=== PATIENT | female | born 1935 | race Caucasian/White ===

== ENCOUNTER 2017-08-25 11:48 | Observation (INO) | payer MEDICARE, OTHER ==
[~2017-08-25] VITALS: Ht 157.5 cm; Wt 61.7 kg
[~2017-08-25 11:48] MED LIST: ARICEPT5 MG PO; CYCLOBENZAPRINE10 MG PO; DEPAKOTE SPRIN125 MG; DIVALPROEX SOD125 MG; GABAPENTIN100 MG; GABAPENTIN300 MG PO; METOCLOPRAMIDE10 MG PO; MIRTAZAPINE15 MG PO; OMEPRAZOLE20 M1 PO; PAROXETINE HCL20 MG PO; SIMVASTATIN40 MG PO
[2017-08-25] MEDS ORDERED: GABAPENTIN100 MG PO (12:44)
[2017-08-25] MEDS ORDERED: RANITIDINE HCL150 MG PO (12:44)
[2017-08-25] MEDS ORDERED: CETIRIZINE HCL10 MG PO (12:44)
[2017-08-25] MEDS ORDERED: MIDODRINE HCL2.5 MG PO (12:44)
[2017-08-25] MEDS ORDERED: SIMVASTATIN40 MG PO (12:44)
[2017-08-25] MEDS ORDERED: GERITOL COMPLE1 EACH PO (12:44)
[2017-08-25] MEDS ORDERED: COLACE100 MG PO (12:44)
[2017-08-25] MEDS ORDERED: SODIUM CHLORIDE 0.9% 1000ML 1,000 ML IV STA (13:29)
[2017-08-25 13:47] LABS: BASOPHILS % 0.3 % (0.0-1.0); EOSINOPHILS % 0.3 % (0.0-6.0); HEMATOCRIT 35.5 % (34.2-44.1); HEMOGLOBIN 11.7 g/dL (12.0-16.0); LYMPHOCYTES % 9.5 % (18.0-39.1); MEAN CORPUSCULAR HEMOGLOBIN 34.2 pg (28-32); MEAN CORPUSCULAR VOLUME 103.8 fL (81-99); MONOCYTES # (AUTO) 0.7 (0.2-0.8); MONOCYTES % 6.8 % (4.4-11.3); NEUTROPHILS # (AUTO) 8.6 (2.1-6.9); NEUTROPHILS % 82.7 % (38.7-80.0); PLATELET COUNT 216 x10e3/uL (140-360); RED BLOOD COUNT 3.42 x10e6/uL (3.6-5.1); RED CELL DISTRIBUTION WIDTH 13.3 % (11.7-14.4)
[2017-08-25 14:05] LABS: ALANINE AMINOTRANSFERASE 20 IU/L (0-55); ALBUMIN 3.3 g/dL (3.5-5.0); ALBUMIN/GLOBULIN RATIO 0.8 (0.8-2.0); ALKALINE PHOSPHATASE 48 IU/L (40-150); BLOOD UREA NITROGEN 21 mg/dL (7-26); BUN/CREATININE RATIO 25 (6-25); CALCIUM 9.2 mg/dL (8.4-10.2); CARBON DIOXIDE 28 mmol/L (22-29); CHLORIDE 106 mmol/L (98-107); CREATINE KINASE 28 IU/L (29-168); CREATININE, SERUM 0.85 mg/dL (0.57-1.11); EST GLOMERULAR FILTRATION RATE > 60 ML/MIN (60-); GLUCOSE 108 mg/dL (74-118); SODIUM 141 mmol/L (136-145)
[2017-08-25 14:14] LABS: TROPONIN I 0.009 ng/mL (0-0.300)
--- NOTE | 2017-08-25 14:29 | Diagnostic Imaging Report ---
Portable chest x-ray CPT code 69591 INDICATION: Weakness, confusion COMPARISON: 01/31/2017 FINDINGS: Frontal view of the chest obtained at 1351 hours. The cardiac silhouette is normal. Aortic ectasia is stable. The pulmonary vascular marking are normal. The lungs demonstrate diffuse hyperinflation. No mass or infiltrate. The costophrenic angles are sharp. There is no pneumothorax. The osseous structures are stable with degenerative changes of the spine. IMPRESSION: 1. Stable chest. 2. No active disease. Signed by: Dr. Alis Ramirez MD on 08/25/2017 2:25 PM
[2017-08-25 15:02] LABS: BILIRUBIN,URINE NEGATIVE (NEGATIVE); COLOR,URINE YELLOW (YELLOW); KETONES,URINE NEGATIVE (NEGATIVE); LEUKOCYTE ESTERASE ,URINE NEGATIVE (NEGATIVE); NITRITE,URINE NEGATIVE (NEGATIVE); PROTEIN,URINE DIPSTICK NEGATIVE (NEGATIVE); URINE UROBILINOGEN 0.2 mg/dL (0.2 - 1)
[2017-08-25 15:03] LABS: CLARITY,URINE CLEAR (CLEAR)
[2017-08-25 15:09] LABS: EPITHELIAL CELLS,URINE RARE /LPF; MUCUS,URINE FEW (RARE); RBC,URINE 0-5 /HPF (0-5); WBC,URINE (MAN) 0-5 /HPF (0-5)
[2017-08-25] MEDS ORDERED: CEFTRIAXONE SOD 1 GM VIAL IV ONE (16:45)
[2017-08-25] MEDS ORDERED: OSELTAMIVIR PHOSPHATE 75 MG CAP PO ONE (16:45)
[2017-08-25] MEDS ORDERED: SODIUM CHLORIDE 0.9% 1000ML 1,000 ML IV ONE (16:45)
[2017-08-25] MEDS: SODIUM CHLORIDE 0.9% 1000ML 1,000 ML IV SCH ×2 (17:30→19:06)
[2017-08-25] MEDS ORDERED: SODIUM CHLORIDE 0.9% 500ML 500 ML IV ONE (18:00)
[2017-08-25] MEDS ORDERED: ONDANSETRON HCL INJ 2 MG/ML VIAL IV PRN (19:15)
[2017-08-25] MEDS ORDERED: CEFTRIAXONE SOD 1 GM VIAL IV SCH (19:15)
[2017-08-25 21:15] VITALS: BP 99/55
[2017-08-25 21:20] VITALS: BP 99/55
[2017-08-25 21:51] LABS: CREATINE KINASE MB 0.4 ng/mL (0.00-5.00); TROPONIN I 0.01 ng/mL (0-0.300)
[2017-08-26] VITALS: BP 111/65
[2017-08-26] MEDS: SODIUM CHLORIDE 0.9% 1000ML 1,000 ML IV SCH ×4 (03:45→22:40)
[2017-08-26 04:00] VITALS: BP 113/97
[2017-08-26] MEDS: CEFTRIAXONE SOD 1 GM/NS 50 ML 50 ML IV SCH ×2 (06:05→16:27)
[2017-08-26 06:57] LABS: BASOPHILS % 0.4 % (0.0-1.0); EOSINOPHILS # (AUTO) 0.2 (0.0-0.4); EOSINOPHILS % 1.7 % (0.0-6.0); HEMATOCRIT 30.4 % (34.2-44.1); HEMOGLOBIN 9.8 g/dL (12.0-16.0); LYMPHOCYTES # (AUTO) 2.4 (1.0-3.2); LYMPHOCYTES % 25.1 % (18.0-39.1); MEAN CORPUSCULAR HEMOGLOBIN 33.4 pg (28-32); MEAN CORPUSCULAR HGB CONC 32.2 g/dL (31-35); MEAN CORPUSCULAR VOLUME 103.8 fL (81-99); MONOCYTES # (AUTO) 0.9 (0.2-0.8); MONOCYTES % 9.8 % (4.4-11.3); NEUTROPHILS # (AUTO) 5.9 (2.1-6.9); NEUTROPHILS % 62.7 % (38.7-80.0); PLATELET COUNT 177 x10e3/uL (140-360); RED BLOOD COUNT 2.93 x10e6/uL (3.6-5.1); RED CELL DISTRIBUTION WIDTH 13.3 % (11.7-14.4)
[2017-08-26 07:38] LABS: ANION GAP 10.8 mmol/L (8-16); BLOOD UREA NITROGEN 14 mg/dL (7-26); BUN/CREATININE RATIO 20 (6-25); CALCIUM 8.7 mg/dL (8.4-10.2); CARBON DIOXIDE 26 mmol/L (22-29); CHLORIDE 112 mmol/L (98-107); CREATINE KINASE 51 IU/L (29-168); CREATININE, SERUM 0.69 mg/dL (0.57-1.11); EST GLOMERULAR FILTRATION RATE > 60 ML/MIN (60-); GLUCOSE 93 mg/dL (74-118); POTASSIUM 3.8 mmol/L (3.5-5.1); SODIUM 145 mmol/L (136-145)
[2017-08-26 08:09] LABS: TROPONIN I 0.003 ng/mL (0-0.300)
[2017-08-26 08:37] VITALS: BP 115/57
[2017-08-26] MEDS ORDERED: OSELTAMIVIR PHOSPHATE 75 MG CAP PO SCH (09:00)
[2017-08-26 10:37] VITALS: BP 115/57
[2017-08-26 11:29] LABS: FREE THYROXINE INDEX 1.5263 (1.4-3.8); T3 UPTAKE 35.25 % (22.50-37.00); THYROID STIMULATING HORMONE 1.413 uIU/mL (0.350-4.940)
--- NOTE | 2017-08-26 12:33 | Diagnostic Imaging Report ---
PROCEDURE: X-RAY CHEST, TWO VIEWS COMPARISON: 08/25/2017. INDICATIONS: COUGH, CONGESTION FINDINGS: The lungs remain well inflated. No focal airspace consolidation or pneumothorax. Trace bilateral pleural effusions are evident on the lateral radiograph. Increased AP diameter of the chest with hemidiaphragmatic flattening is also unchanged. Stable cardiomediastinal contour. No pulmonary edema. No acute osseous abnormality. CONCLUSION: Trace bilateral pleural effusions. 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 Dictated by: Ac Sheth M.D. on 08/26/2017 at 12:42 Electronically approved by: Ac Sheth M.D. on 08/26/2017 at 12:42
[2017-08-26 12:44] LABS: FOLATE 30.3 ng/mL (7.0-15.4)
[2017-08-26] MEDS: DOCUSATE SODIUM 100 MG CAP PO SCH ×2 (12:53→22:40)
[2017-08-26] MEDS: GABAPENTIN 100 MG CAP PO SCH ×2 (12:53→22:40)
[2017-08-26] MEDS ORDERED: GUAIFENESIN/DEXTROMETHORPHAN LIQD 5 ML UDC NG PRN (14:30)
[2017-08-26] MEDS: ACETAMINOPHEN 325 MG TAB PO PRN (14:58)
[2017-08-26 17:02] VITALS: BP 117/67
[2017-08-26] MEDS: FAMOTIDINE 20 MG TAB PO SCH (17:54)
[2017-08-26 20:00] VITALS: BP 113/54
[2017-08-26] MEDS: IRON CARBONYL PO SCH (21:00)
[2017-08-26] MEDS: MV MIN PO SCH (21:00)
[2017-08-26] MEDS: [UNRECOGNIZED DRUG - OTHER] PO SCH (21:00)
[2017-08-26] MEDS: DONEPEZIL HCL 5 MG TAB PO SCH (22:40)
[2017-08-26] MEDS: DIVALPROEX SODIUM 125 MG TABDR...ER PO SCH (22:40)
[2017-08-26] MEDS: SIMVASTATIN 40 MG TAB PO SCH (22:40)
[2017-08-26] MEDS: MIRTAZAPINE 15 MG TAB PO SCH (22:40)
[2017-08-27] VITALS (7 sets, daily range): BP systolic 101–137; BP diastolic 54–72
[2017-08-27] MEDS: SODIUM CHLORIDE 0.9% 1000ML 1,000 ML IV SCH ×3 (03:01→19:01)
[2017-08-27] MEDS: CEFTRIAXONE SOD 1 GM/NS 50 ML 50 ML IV SCH (05:15)
[2017-08-27 07:56] LABS: BASOPHILS # (AUTO) 0.1 (0.0-0.1); BASOPHILS % 0.6 % (0.0-1.0); EOSINOPHILS # (AUTO) 0.1 (0.0-0.4); EOSINOPHILS % 1.5 % (0.0-6.0); HEMATOCRIT 30.7 % (34.2-44.1); HEMOGLOBIN 10.2 g/dL (12.0-16.0); LYMPHOCYTES # (AUTO) 1.7 (1.0-3.2); MEAN CORPUSCULAR HEMOGLOBIN 33.7 pg (28-32); MEAN CORPUSCULAR HGB CONC 33.2 g/dL (31-35); MEAN CORPUSCULAR VOLUME 101.3 fL (81-99); MONOCYTES # (AUTO) 0.9 (0.2-0.8); MONOCYTES % 9.8 % (4.4-11.3); NEUTROPHILS # (AUTO) 5.8 (2.1-6.9); NEUTROPHILS % 67.6 % (38.7-80.0); PLATELET COUNT 197 x10e3/uL (140-360); RED BLOOD COUNT 3.03 x10e6/uL (3.6-5.1); RED CELL DISTRIBUTION WIDTH 13.2 % (11.7-14.4)
[2017-08-27 08:06] LABS: ANION GAP 11.3 mmol/L (8-16); BLOOD UREA NITROGEN 9 mg/dL (7-26); BUN/CREATININE RATIO 13 (6-25); CALCIUM 8.2 mg/dL (8.4-10.2); CARBON DIOXIDE 24 mmol/L (22-29); CHLORIDE 111 mmol/L (98-107); CREATININE, SERUM 0.68 mg/dL (0.57-1.11); EST GLOMERULAR FILTRATION RATE > 60 ML/MIN (60-); GLUCOSE 98 mg/dL (74-118); POTASSIUM 3.3 mmol/L (3.5-5.1); SODIUM 143 mmol/L (136-145)
[2017-08-27] MEDS: MIDODRINE HCL 5 MG TABLET PO SCH (09:00)
[2017-08-27] MEDS: LORATADINE 10 MG TAB PO SCH (09:03)
[2017-08-27] MEDS: GABAPENTIN 100 MG CAP PO SCH ×2 (09:03→21:36)
[2017-08-27] MEDS: FAMOTIDINE 20 MG TAB PO SCH ×2 (09:03→16:33)
[2017-08-27] MEDS: ACETAMINOPHEN 325 MG TAB PO PRN (09:03)
--- NOTE | 2017-08-27 09:42 | Consultation ---
DATE OF CONSULTATION: August 27, 2017 UROLOGY CONSULTATION CHIEF UROLOGICAL COMPLAINT/REASON FOR CONSULTATION: Urinary retention. HISTORY OF PRESENT ILLNESS: Amie Nelson is an 82-year-old female admitted with confusion. Urologic consultation requested for retention. Per the nursing verbal note in the chart, greater than 800 mL. No dysuria. No gross hematuria. PAST MEDICAL HISTORY: Remarkable for coronary artery disease, status post recent catheterization, left ventricular dysfunction, hyperlipidemia, esophageal stricture, status post dilations, Alzheimer's dementia, hiatal hernia repair, cholecystectomy, hysterectomy degenerative joint disease. MEDICATIONS: Please see MAR. ALLERGIES: LIPITOR. SOCIAL HISTORY: No smoking or drinking. FAMILY HISTORY: No urological disease. REVIEW OF SYSTEMS: Noncontributory. for 12 organ systems. PHYSICAL EXAMINATION GENERAL: Elderly female in no acute distress. VITALS: Currently, she is afebrile. Stable vital signs. HEENT: Sclerae anicteric. NECK: Supple. BACK: Without costovertebral angle tenderness. ABDOMEN: Soft. It is nontender and nondistended. No palpable mass. No palpable hernias. No palpable lymphadenopathy. : Normal female external genitalia. Dan catheter draining clear yellow urine. EXTREMITIES: Without edema of upper or lower extremities. PSYCH: Alert and mood appropriate. SKIN: Intact. Normal color. PERTINENT LABORATORY DATA: Hemoglobin 11, hematocrit 35 and platelet count 216,000. White cell count 10,000. Sodium 145, potassium 3.8, chloride 112, bicarb 26, BUN 14, creatinine. 0.69, glucose 93. Urinalysis 0-5 reds and 0-5 whites. IMPRESSION 1. Urinary retention. 2. Question of neurogenic bladder. 3. Anemia. 4. Question of urinary tract infection. 5. Microscopic hematuria. PLAN 1. Will await a culture. 2. The patient would benefit from outpatient urodynamic studies. Would recommend continuation of the Dan catheter. Thank you for allowing me to participate in the care of your patient. Will be happy to follow along with you. Job#: [id number] RI cc: ANABEL AYALA MD MTDD
[2017-08-27] MEDS: DOCUSATE SODIUM 100 MG CAP PO SCH ×2 (12:10→22:10)
[2017-08-27] MEDS ORDERED: FUROSEMIDE INJ 10 MG/ML 4 ML VIAL IV ONE (13:15)
[2017-08-27] MEDS ORDERED: POTASSIUM CHLORIDE 10 MEQ TABCR PO ONE (13:15)
[2017-08-27] MEDS: CEFTRIAXONE SOD 1 GM VIAL IV SCH (16:33)
[2017-08-27] MEDS: MV MIN PO SCH (21:00)
[2017-08-27] MEDS: [UNRECOGNIZED DRUG - OTHER] PO SCH (21:00)
[2017-08-27] MEDS: IRON CARBONYL PO SCH (21:00)
[2017-08-27] MEDS: SIMVASTATIN 40 MG TAB PO SCH (21:36)
[2017-08-27] MEDS: MIRTAZAPINE 15 MG TAB PO SCH (21:36)
[2017-08-27] MEDS: DIVALPROEX SODIUM 125 MG TABDR...ER PO SCH (21:36)
[2017-08-27] MEDS: DONEPEZIL HCL 5 MG TAB PO SCH (21:36)
[2017-08-28] VITALS: BP 112/58
[2017-08-28] MEDS: SODIUM CHLORIDE 0.9% 1000ML 1,000 ML IV SCH ×2 (03:01→12:24)
[2017-08-28 04:00] VITALS: BP 148/72
[2017-08-28] MEDS: CEFTRIAXONE SOD 1 GM VIAL IV SCH ×2 (04:48→16:46)
[2017-08-28] MEDS: FAMOTIDINE 20 MG TAB PO SCH ×2 (07:30→16:46)
[2017-08-28 07:57] VITALS: BP 131/60
[2017-08-28] MEDS: GABAPENTIN 100 MG CAP PO SCH (09:00)
[2017-08-28] MEDS: MIDODRINE HCL 5 MG TABLET PO SCH (09:00)
[2017-08-28] MEDS: LORATADINE 10 MG TAB PO SCH (09:00)
[2017-08-28 11:36] LABS: ANION GAP 11.6 mmol/L (8-16); BLOOD UREA NITROGEN 9 mg/dL (7-26); BUN/CREATININE RATIO 12 (6-25); CALCIUM 8.3 mg/dL (8.4-10.2); CARBON DIOXIDE 28 mmol/L (22-29); CHLORIDE 105 mmol/L (98-107); CREATININE, SERUM 0.73 mg/dL (0.57-1.11); EST GLOMERULAR FILTRATION RATE > 60 ML/MIN (60-); GLUCOSE 166 mg/dL (74-118); SODIUM 142 mmol/L (136-145)
[2017-08-28 11:40] LABS: POTASSIUM 2.6 mmol/L (3.5-5.1)
[2017-08-28 12:00] VITALS: BP 111/56
[2017-08-28] MEDS ORDERED: POTASSIUM CHLORIDE 20 MEQ TAB CR PO NR ×2 (12:00→14:30)
[2017-08-28] MEDS: DOCUSATE SODIUM 100 MG CAP PO SCH (12:24)
[2017-08-28 15:43] VITALS: BP 111/56
[2017-08-28 16:00] VITALS: BP 122/56
[2017-08-28] MEDS ORDERED: POTASSIUM CHLORIDE 20 MEQ TAB CR PO STA (16:47)
== END 2017-08-28 18:18 | disposition home or self-care (01) ==
LOC: ER 11:48 → ERHOLD 20:03 → MED/SURG 20:46
DX: B34.9 Viral infection, unspecified (principal); D53.9 Nutritional anemia, unspecified; G30.9 Alzheimer's disease, unspecified; F02.80 Dementia in other diseases classified elsewhere, unspecified severity, without behavioral disturbance, psychotic disturbance, mood disturbance, and anxiety; E87.6 Hypokalemia
CPT/HCPCS: 36415 ×4; 71010; 71020; 80048 ×3; 80053; 81001; 82550 ×2; 82553 ×2; 82607; 82746; 83540; 84132; 84436; 84443; 84466; 84479; 84484 ×2; 85025 ×3; 85045; 87086; 87400; 93005; 97116 ×3; 97162; 97530; 99284; G0378 ×4; J0696 ×3; J1940; J7030 ×2; J7040

== ENCOUNTER 2018-06-11 14:00 | Observation (INO) | payer MEDICARE, OTHER ==
[~2018-06-11] VITALS: Ht 162.6 cm; Wt 61.8 kg
[~2018-06-11 14:00] MED LIST changes: +ARICEPT5 MG PEG; -ARICEPT5 MG PO; +CETIRIZINE HCL10 MG PO; +COLACE100 MG PEG; -DEPAKOTE SPRIN125 MG; +DEPAKOTE SPRIN125 MG PEG; +GABAPENTIN100 MG PEG; +GERITOL COMPLE1 EACH PO; +MIDODRINE HCL2.5 MG PEG; +RANITIDINE HCL150 MG PEG
--- OUTSIDE RECORDS SUMMARY | 2018-06-11 14:04 | XMS REPORT ---
Author Author [facility] Address Unknown Phone Unavailable Care Team Providers Care Labor Relations Or Personnel Negotiator Name Role Phone GUY AYALA Unavailable Unavailable Problems This patient has no known problems. Allergies, Adverse Reactions, Alerts This patient has no known allergies or adverse reactions. Medications This patient has no known medications. Results Test Description Test Time Test Comments Text Results Atomic Results Result Comments CHEST 2 VIEWS [place] [address] Patient Name: TROY DUBON MR #: [id number] : 1935 Age/Sex: 82/F Req #: [id number] Adm Physician: GUY AYALA MD Ordered by: GUY AYALA MD Report #: [id number] Location: MED/SURG Room/Bed: [facility] Procedure: [id number] DX/CHEST 2 VIEWS Exam Date: 08/26/17 Exam Time: 1210 REPORT STATUS: Signed PROCEDURE: X-RAY CHEST, TWO VIEWS COMPARISON: 08/25/2017. INDICATIONS: COUGH, CONGESTION FINDINGS: The lungs remain well inflated. No focal airspace consolidation or pneumothorax. Trace bilateral pleural effusions are evident on the lateral radiograph. Increased AP diameter of the chest with hemidiaphragmatic flattening is also unchanged. Stable cardiomediastinal contour. No pulmonary edema. No acute osseous abnormality. CONCLUSION: Trace bilateral pleural effusions. 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 Dictated by: Jesus Ramirez M.D. on 08/26/2017 at 12:42 Electronically approved by: Jesus Ramirez M.D. on 08/26/2017 at 12:42 Dictated By: JESUS RAMIREZ MD 1242 Transcribed By: FRANKI on 08/26/17 1242 COPY TO: GUY AYALA MD CHEST SINGLE (PORTABLE) [place] [address] Patient Name: TROY DUBON MR #: [id number] : 1935 Age/Sex: 82/F Req #: [id number] Adm Physician: Ordered by: GEOVANI GARCIA MD Report #: [id number] Location: ER Room/Bed: Procedure: [id number] DX/CHEST SINGLE (PORTABLE) Exam Date: 08/25/17 Exam Time: 1330 REPORT STATUS: Signed Portable chest x-ray CPT code 61276 INDICATION: Weakness, confusion COMPARISON: 01/31/2017 FINDINGS: Frontal view of the chest obtained at 1351 hours. The cardiac silhouette is normal. Aortic ectasia is stable. The pulmonary vascular marking are normal. The lungs demonstrate diffuse hyperinflation. No mass or infiltrate. The costophrenic angles are sharp. There is no pneumothorax. The osseous structures are stable with degenerative changes of the spine. IMPRESSION: 1. Stable chest. 2. No active disease. Signed by: Dr. Emir Ramirez MD on 08/25/2017 2:25 PM Dictated By: EMIR RAMIREZ MD [id number] Transcribed By: MERCY on 08/25/17 4361 COPY TO: GEOVANI GARCIA MD
[2018-06-11 15:20] LABS: BASOPHILS # (AUTO) 0.1 (0.0-0.1); EOSINOPHILS # (AUTO) 0.2 (0.0-0.4); HEMATOCRIT 38.3 % (34.2-44.1); HEMOGLOBIN 12.5 g/dL (12.0-16.0); LYMPHOCYTES # (AUTO) 2.6 (1.0-3.2); LYMPHOCYTES % 35.4 % (18.0-39.1); MEAN CORPUSCULAR HEMOGLOBIN 33.2 pg (28-32); MEAN CORPUSCULAR HGB CONC 32.6 g/dL (31-35); MEAN CORPUSCULAR VOLUME 101.6 fL (81-99); MONOCYTES # (AUTO) 0.6 (0.2-0.8); MONOCYTES % 7.7 % (4.4-11.3); NEUTROPHILS # (AUTO) 3.8 (2.1-6.9); NEUTROPHILS % 52.8 % (38.7-80.0); PLATELET COUNT 312 x10e3/uL (140-360); RED BLOOD COUNT 3.77 x10e6/uL (3.6-5.1)
[2018-06-11 15:29] LABS: BILIRUBIN,URINE NEGATIVE (NEGATIVE); CLARITY,URINE SL CLOUDY (CLEAR); COLOR,URINE YELLOW (YELLOW); KETONES,URINE NEGATIVE (NEGATIVE); LEUKOCYTE ESTERASE ,URINE NEGATIVE (NEGATIVE); NITRITE,URINE NEGATIVE (NEGATIVE); PROTEIN,URINE DIPSTICK NEGATIVE (NEGATIVE); URINE UROBILINOGEN 0.2 mg/dL (0.2 - 1)
[2018-06-11 15:32] LABS: ALANINE AMINOTRANSFERASE 10 IU/L (0-55); ALBUMIN 3.2 g/dL (3.5-5.0); ALBUMIN/GLOBULIN RATIO 0.8 (0.8-2.0); ALKALINE PHOSPHATASE 67 IU/L (40-150); ANION GAP 13.1 mmol/L (8-16); BLOOD UREA NITROGEN 16 mg/dL (7-26); BUN/CREATININE RATIO 19 (6-25); CALCIUM 9.8 mg/dL (8.4-10.2); CARBON DIOXIDE 30 mmol/L (22-29); CHLORIDE 101 mmol/L (98-107); CREATININE, SERUM 0.84 mg/dL (0.57-1.11); EST GLOMERULAR FILTRATION RATE > 60 ML/MIN (60-); GLUCOSE 92 mg/dL (74-118); POTASSIUM 4.1 mmol/L (3.5-5.1); SODIUM 140 mmol/L (136-145)
[2018-06-11 15:41] LABS: BACTERIA,URINE FEW /HPF; EPITHELIAL CELLS,URINE FEW /LPF; MUCUS,URINE FEW (RARE); RBC,URINE 0-5 /HPF (0-5)
[2018-06-11 21:50] VITALS: BP 130/61
[2018-06-11] MEDS: GABAPENTIN 100 MG CAP PO SCH (22:55)
[2018-06-11 23:32] VITALS: BP 130/61
[2018-06-12] VITALS (9 sets, daily range): BP systolic 101–115; BP diastolic 52–60
[2018-06-12] MEDS: DOCUSATE SODIUM 100 MG CAP PO SCH ×2 (09:35→21:42)
[2018-06-12] MEDS: MIDODRINE 2.5 MG TAB PO SCH (09:35)
[2018-06-12] MEDS: GABAPENTIN 100 MG CAP PO SCH ×2 (09:36→21:52)
[2018-06-12] MEDS ORDERED: NON-FORMULARY MEDICATION (Ranitidine Hcl 150 MG) PO SCH (17:00)
--- NOTE | 2018-06-12 19:49 | History and Physical ---
HISTORY OF PRESENT ILLNESS: This is an 83-year-old female with past medical history positive for dementia, questionable history of neuropathy, came to the emergency room because the patient was found to have more confusion than usual. She was diagnosed with UTI, recent and discharge few days ago with 3 days of Cipro. REVIEW OF SYSTEMS: The patient is unable to give me any information due to her underlying dementia. ALLERGIES: SHE IS ALLERGIC TO CODEINE. SOCIAL HISTORY: She does not drink. She does not drink. PAST MEDICAL HISTORY: Mainly positive for dementia and questionable neuropathy. PHYSICAL EXAMINATION VITAL SIGNS: Blood pressure 101/54, temperature 86.5, heart rate 63 per minute, respiratory rate 18 per minute, oxygen saturation 96%. HEART: Showed regular rhythm. Normal S1, S2 sounds. LUNGS: Clear bilaterally. ABDOMEN: Soft. EXTREMITIES: Show no evidence of cyanosis, edema, or trauma. LABORATORY DATA: We have BMP. Sodium 140, potassium 4.1, chloride 101, CO2 of 30, BUN 16, creatinine 0.84, glucose 92. On the CBC: White blood count 7.25, hemoglobin 12.5, hematocrit 38.3, platelet count 320,000. AST 19, ALT 10, total bilirubin 0.3, alkaline phosphatase 67. Urinalysis showed microhematuria. FINAL IMPRESSION 1. Worsening confusion. 2. Microhematuria, rule out kidney stone, rule out urinary tract infection. 3. Dementia. 4. Hypercholesterolemia. 5. Questionable idiopathic neuropathy. PLAN OF TREATMENT: We are going to order urine culture, chest x-ray, and CT of the head. We are going to get an abdominal ultrasound because of the microhematuria and abdominal pain. We are going to get urology consult with Dr. Douglas because of microhematuria. Continue rest of the home medication which include Colace 100 mg twice a day, Aricept 5 mg at bedtime. We are going to put a hold on gabapentin. Continue midodrine 5 mg daily, Remeron 7.5 mg at bedtime, and simvastatin 40 mg daily. We are going to initiate the procedure workup and if the workup is negative for any significant medical condition, patient can be going home. the weekend. Job#: [id number] VAS
--- NOTE | 2018-06-12 20:36 | Diagnostic Imaging Report ---
EXAMINATION: CHEST SINGLE (PORTABLE) INDICATION: Confusion, concern for pneumonia. COMPARISON: Chest radiograph 08/26/2017 FINDINGS: AP view TUBES and LINES: None. LUNGS: Lungs are moderately inflated. There are bibasilar atelectasis. There is no evidence of pneumonia or pulmonary edema. PLEURA: No pleural effusion or pneumothorax. HEART AND MEDIASTINUM: The cardiomediastinal silhouette is unremarkable. BONES AND SOFT TISSUES: No acute osseous lesion. Soft tissues are unremarkable. UPPER ABDOMEN: No free air under the diaphragm. IMPRESSION: No acute thoracic abnormality. Signed by: DR. Albert Villanueva MD on 06/12/2018 8:33 PM
[2018-06-12] MEDS ORDERED: MULTIVITAMINS/MINERALS TAB PO SCH (21:00)
[2018-06-12] MEDS ORDERED: [UNRECOGNIZED DRUG - OTHER] PO SCH (21:00)
[2018-06-12] MEDS ORDERED: DIVALPROEX SODIUM 125 MG TABDR...ER PO SCH (21:00)
[2018-06-12] MEDS ORDERED: MIRTAZAPINE 15 MG TAB PO SCH (21:00)
[2018-06-12] MEDS ORDERED: DIVALPROEX SODIUM SCH (21:00)
[2018-06-12] MEDS ORDERED: DONEPEZIL HCL 5 MG TAB PO SCH (21:00)
[2018-06-12] MEDS ORDERED: MV MIN PO SCH (21:00)
[2018-06-12] MEDS ORDERED: SIMVASTATIN 40 MG TAB PO SCH (21:00)
[2018-06-12] MEDS ORDERED: IRON CARBONYL PO SCH (21:00)
--- NOTE | 2018-06-12 21:07 | Diagnostic Imaging Report ---
EXAM: CT Abdomen and Pelvis WITHOUT contrast INDICATION: Abdominal pain, microhematuria, renal stone COMPARISON: None. TECHNIQUE: Abdomen and pelvis were scanned utilizing a multidetector helical scanner from the lung base to the pubic symphysis without administration of IV contrast. Absence of intravenous contrast decreases sensitivity for detection of focal lesions and vascular pathology. Coronal and sagittal reformations were obtained. Stone protocol is performed. IV CONTRAST: None. ORAL CONTRAST: None RADIATION DOSE: Total DLP: 460.76 mGy*cm Estimated effective dose: (DLP x 0.015 x size factor) mSv COMPLICATIONS: None FINDINGS: LINES and TUBES: None. LOWER THORAX: Unremarkable HEPATOBILIARY: No focal hepatic lesions. No biliary ductal dilation. GALLBLADDER: There are cholecystectomy clips. SPLEEN: No splenomegaly. PANCREAS: No focal masses or ductal dilatation. ADRENALS: No adrenal nodules KIDNEYS/URETERS: No hydronephrosis. No cystic or solid mass lesions. No stones. GI TRACT: No abnormal distention, wall thickening, or evidence of bowel obstruction. There are diverticula within the colon without evidence of diverticulitis. Appendix is normal. PELVIC ORGANS/BLADDER: The uterus is absent. The left ovary is unremarkable. Right ovary is not visualized. LYMPH NODES: No lymphadenopathy. VESSELS: There is moderate atherosclerotic disease in the aorta and major arterial branches. PERITONEUM / RETROPERITONEUM: No free air or fluid. BONES: Unremarkable. SOFT TISSUES: Unremarkable. IMPRESSION: 1. No evidence of nephrolithiasis or hydronephrosis. 2. Diverticulosis without diverticulitis. Signed by: Dr. Quinn Preston M.D. on 06/12/2018 9:03 PM
[2018-06-12] MEDS: FAMOTIDINE 20 MG TAB PO SCH (21:42)
[2018-06-13 01:00] VITALS: BP 128/59
[2018-06-13 03:30] VITALS: BP 117/57
[2018-06-13 08:32] VITALS: BP 108/57
[2018-06-13] MEDS ORDERED: LORATADINE 10 MG TAB PO SCH (09:00)
[2018-06-13] MEDS ORDERED: NON-FORMULARY MEDICATION (Cetirizine Hcl 10 MG) PO SCH (09:00)
[2018-06-13] MEDS: DOCUSATE SODIUM 100 MG CAP PO SCH (09:27)
[2018-06-13] MEDS: MIDODRINE 2.5 MG TAB PO SCH (09:28)
[2018-06-13] MEDS: FAMOTIDINE 20 MG TAB PO SCH (09:28)
--- NOTE | 2018-06-13 09:47 | Consultation ---
DATE OF CONSULTATION: June 13, 2018 UROLOGY CONSULTATION REQUESTING PHYSICIAN: Dr. Cyr. CHIEF UROLOGIC COMPLAINT/REASON FOR CONSULTATION: Microscopic hematuria. HISTORY OF PRESENT ILLNESS: Ms. Amie Nelson is a very pleasant 83-year-old female patient, admitted to the hospital with urinary tract infection, urinary difficulties, and dementia with confusion. PAST MEDICAL HISTORY: Notable for multiple chronic urinary tract infections, microscopic hematuria. She has nocturia 4 to 8 times per night, positive incomplete emptying. Denied urine incontinence. Past medical history is notable for constipation, dementia, status post hysterectomy, and status post cholecystectomy. MEDICATIONS: Please see MAR. ALLERGIES: CODEINE. SOCIAL HISTORY: Denies smoking or drinking. Full-care patient. FAMILY HISTORY: No urologic stones or malignancies per granddaughter. REVIEW OF SYSTEMS: Attempted with patient, unable to obtain secondary to dementia. PHYSICAL EXAMINATION GENERAL: Elderly female, in no acute distress. VITAL SIGNS: Temperature 95.8, pulse 59, respirations 18, and blood pressure 117/57. HEENT: Sclerae anicteric. NECK: Supple. BACK: Without costovertebral angle tenderness bilaterally. ABDOMEN: Soft, nontender, and nondistended. No palpable masses. No palpable hernias. No palpable inguinal lymphadenopathy. : Normal female external genitalia. EXTREMITIES: Without edema. Normally moves all 4 extremities. PSYCH: Mood appropriate. SKIN: Intact. Normal color. PERTINENT LABORATORY DATA: CT scan revealing normal , diverticulosis. Sodium 140, potassium 4.1, chloride 101, bicarb 30, BUN 16, creatinine 0.8, and glucose 92. Hemoglobin 12, hematocrit 38, platelet count 312,000, and white blood cell count 7250. Urinalysis 0 to 5 reds. IMPRESSION 1. Microscopic hematuria. 2. Chronic urinary tract infections. 3. Urinary incomplete emptying. 4. Nocturia. 5. Constipation. PLAN: Urologically, patient currently is BHARGAVI for infection, may be safely discharged to home with outpatient elective cystoscopy by myself. Thank you for allowing us to participate in the care of your patient. We will be happy to follow along with you. Job#: [id number] GABI cc:DR. CYR
[2018-06-13] MEDS: GABAPENTIN 100 MG CAP PO SCH (11:05)
[2018-06-13 12:01] LABS: BASOPHILS # (AUTO) 0.1 (0.0-0.1); EOSINOPHILS # (AUTO) 0.2 (0.0-0.4); EOSINOPHILS % 2.8 % (0.0-6.0); HEMATOCRIT 37.3 % (34.2-44.1); HEMOGLOBIN 12.3 g/dL (12.0-16.0); LYMPHOCYTES # (AUTO) 2.2 (1.0-3.2); LYMPHOCYTES % 30.7 % (18.0-39.1); MONOCYTES # (AUTO) 0.7 (0.2-0.8); MONOCYTES % 9.1 % (4.4-11.3); NEUTROPHILS % 56.1 % (38.7-80.0); PLATELET COUNT 300 x10e3/uL (140-360); RED BLOOD COUNT 3.73 x10e6/uL (3.6-5.1)
[2018-06-13 12:11] VITALS: BP 109/57
[2018-06-13 12:21] LABS: ALANINE AMINOTRANSFERASE 9 IU/L (0-55); ALBUMIN/GLOBULIN RATIO 0.8 (0.8-2.0); ALKALINE PHOSPHATASE 63 IU/L (40-150); ANION GAP 15.1 mmol/L (8-16); BLOOD UREA NITROGEN 17 mg/dL (7-26); BUN/CREATININE RATIO 20 (6-25); CALCIUM 9.4 mg/dL (8.4-10.2); CARBON DIOXIDE 26 mmol/L (22-29); CHLORIDE 103 mmol/L (98-107); CREATININE, SERUM 0.84 mg/dL (0.57-1.11); EST GLOMERULAR FILTRATION RATE > 60 ML/MIN (60-); GLUCOSE 103 mg/dL (74-118); POTASSIUM 4.1 mmol/L (3.5-5.1); SODIUM 140 mmol/L (136-145)
--- NOTE | 2018-06-13 13:10 | Diagnostic Imaging Report ---
ADDENDUM #1 Dose modulation, iterative reconstruction, and/or weight based adjustment of the mA/kV was utilized to reduce the radiation dose to as low as reasonably achievable. Signed by: DR James Marie M.D. on 06/17/2018 10:30 AM ORIGINAL REPORT History:AMS, history of dementia Comparison studies:CT head 09/15/2016 Technique: Axial images were obtained from the skull base to the vertex. Coronal and sagittal images reconstructed from the axial data. Intravenous contrast: None Findings: Scalp/skull: No abnormalities. Extra-axial spaces: No masses. No fluid collections. Brain sulci: Mild to moderately prominent. Ventricles: Mild to moderate compensatory dilatation. No hydrocephalus. Parenchyma: Few hypodensities in the supratentorial white matter are small vessel ischemic changes. No masses, hemorrhage, acute or chronic cortical vascular insults. Sellar/suprasellar region: No abnormalities. Craniocervical junction: Patent foramen magnum. No Chiari one malformation. Incidental findings: Atherosclerotic calcifications in the carotid siphons and vertebral arteries . Impression: No acute abnormalities. Chronic findings: 1. Mild to moderate generalized volume loss, progressed from previous examination. 2. Mild supratentorial white matter small vessel ischemic changes. Signed by: DR James Marie M.D. on 06/13/2018 1:06 PM
[2018-06-13 16:24] VITALS: BP 109/57
[2018-06-13 16:43] VITALS: BP 108/55
--- NOTE | 2018-08-19 14:54 | Discharge Summary ---
This is an 83-year-old female with past medical history positive for severe advanced dementia, Parkinson disease, neuropathy. She came to the emergency room because she was found to be more confused than usual. She was diagnosed with UTI and recently discharged with ciprofloxacin. Dr. Douglas was consulted because of the microhematuria. He is going to see her as an outpatient. She was seen by Dr. Joe also of neurology who did not find any evidence of any seizure activity. The MRI showed no evidence of any new stroke. PHYSICAL EXAMINATION: The heart shows regular rhythm, normal S1 and S2 sounds. Lungs are clear bilaterally. Abdomen is soft. FINAL IMPRESSION 1. Worsening confusion. 2. Microhematuria. 3. Dementia. 4. Hypercholesterolemia. 5. Question of idiopathic neuropathy. The patient is going to go home and continue the current medication regimen. Another option would be long-term facility if the patient is willing to participate in that also. GABBY CYR MD Job#: [id number]
== END 2018-06-13 17:40 | disposition home or self-care (01) ==
LOC: ER 14:00 → ERHOLD 17:10 → IMCU 21:41
PROVIDERS: ADMIT Internal Medicine; ATTEND Internal Medicine
DX: N39.0 Urinary tract infection, site not specified (principal); R41.82 Altered mental status, unspecified; F03.90 Unspecified dementia, unspecified severity, without behavioral disturbance, psychotic disturbance, mood disturbance, and anxiety; Z88.5 Allergy status to narcotic agent; R31.29 Other microscopic hematuria; E78.00 Pure hypercholesterolemia, unspecified; R33.9 Retention of urine, unspecified; R35.1 Nocturia; K59.00 Constipation, unspecified
CPT/HCPCS: 36415 ×2; 70450; 71045; 74176; 80053 ×2; 81001; 85025 ×2; 93005; G0378 ×3; 99284

== ENCOUNTER 2018-07-07 13:21 | Inpatient (IN) | payer MEDICARE, OTHER ==
[~2018-07-07] VITALS: Ht 162.6 cm; Wt 75.0 kg
[2018-07-07] MEDS ORDERED: SODIUM CHLORIDE 0.9% 1000ML 1,000 ML IV ONE (14:00)
[2018-07-07 14:11] LABS: BASOPHILS % 0.3 % (0.0-1.0); EOSINOPHILS # (AUTO) 0.1 (0.0-0.4); EOSINOPHILS % 1.6 % (0.0-6.0); HEMATOCRIT 40.1 % (34.2-44.1); HEMOGLOBIN 12.8 g/dL (12.0-16.0); LYMPHOCYTES # (AUTO) 1.9 (1.0-3.2); LYMPHOCYTES % 21.7 % (18.0-39.1); MEAN CORPUSCULAR HGB CONC 31.9 g/dL (31-35); MEAN CORPUSCULAR VOLUME 103.4 fL (81-99); MONOCYTES # (AUTO) 0.8 (0.2-0.8); MONOCYTES % 9.1 % (4.4-11.3); NEUTROPHILS # (AUTO) 5.8 (2.1-6.9); NEUTROPHILS % 66.8 % (38.7-80.0); PLATELET COUNT 247 x10e3/uL (140-360); RED BLOOD COUNT 3.88 x10e6/uL (3.6-5.1); RED CELL DISTRIBUTION WIDTH 13.9 % (11.7-14.4)
[2018-07-07 14:29] LABS: ALANINE AMINOTRANSFERASE 22 IU/L (0-55); ALBUMIN 3.3 g/dL (3.5-5.0); ALBUMIN/GLOBULIN RATIO 0.8 (0.8-2.0); ALKALINE PHOSPHATASE 79 IU/L (40-150); ANION GAP 13.9 mmol/L (8-16); BLOOD UREA NITROGEN 22 mg/dL (7-26); BUN/CREATININE RATIO 24 (6-25); CALCIUM 8.2 mg/dL (8.4-10.2); CARBON DIOXIDE 24 mmol/L (22-29); CHLORIDE 100 mmol/L (98-107); EST GLOMERULAR FILTRATION RATE 60 ML/MIN (60-); GLUCOSE 119 mg/dL (74-118); MAGNESIUM 2.2 MG/DL (1.3-2.1); PHOSPHORUS 3.7 MG/DL (2.3-4.7); POTASSIUM 3.9 mmol/L (3.5-5.1); SODIUM 134 mmol/L (136-145)
[2018-07-07] MEDS ORDERED: ASPIR 8181 MG PEG (14:55)
--- NOTE | 2018-07-07 15:25 | Diagnostic Imaging Report ---
Examination: Single AP view of the chest. COMPARISON: Portable chest 06/12/2018 INDICATION: Syncope, nausea and vomiting IMPRESSION: 1. Lines and Tubes: None 2. Lungs are grossly clear. No consolidation or effusion. 3. Cardiomediastinal silhouette is normal. Pulmonary vasculature is normal. 4. No acute bony abnormalities. Signed by: Dr. Karlos Hurd M.D. on 07/07/2018 3:22 PM
--- NOTE | 2018-07-07 16:57 | Diagnostic Imaging Report ---
EXAMINATION: CT of the abdomen and pelvis with contrast. TECHNIQUE: Spiral CT images of the abdomen and pelvis were performed from the lung bases to the lesser trochanters after the intravenous administration of 100 cc of Isovue 370 and the oral administration of water. Coronal and sagittal reformatted images were obtained. COMPARISON: CT abdomen and pelvis without contrast 06/12/2018 CLINICAL HISTORY:UTI, seizure, syncope, diarrhea DISCUSSION: ABDOMEN/PELVIS: LOWER THORAX:Stable linear atelectatic changes in the left lower lobe (series 2, image 8). HEPATOBILIARY: No focal hepatic lesions. No intra or extrahepatic biliary ductal dilation. GALLBLADDER: Cholecystectomy clips. SPLEEN: No splenomegaly. PANCREAS: No focal masses or ductal dilatation. ADRENALS: No adrenal nodules. KIDNEYS/URETERS: No hydronephrosis, stones, or solid mass lesions. PELVIC ORGANS/BLADDER: Bladder is unremarkable. Uterus is absent. Interval decrease in size of 1.4 cm fluid density lesion in the left adnexa (series 2, image 65), which previously measured 2.4 cm PERITONEUM/RETROPERITONEUM: No free air or fluid. LYMPH NODES: No intra-abdominal, retroperitoneal, pelvic or inguinal lymphadenopathy. VESSELS: The celiac trunk,superior and inferior mesenteric and bilateral renal arteries are patent The portal, superior mesenteric and splenic veins are patent. GI TRACT: No bowel dilation or evidence of obstruction. No pericolonic inflammatory changes. Scattered diverticula in the ascending, transverse and descending colon, with more extensive diverticulosis of the sigmoid colon, without diverticulitis, stable BONES AND SOFT TISSUE: No aggressive lytic lesions. Multilevel degenerative disc changes in the lower thoracic and lumbosacral spine. No soft tissue abnormalities. IMPRESSION: 1. No acute abdominopelvic abnormalities. Signed by: Dr. Karlos Hurd M.D. on 07/07/2018 4:53 PM
[2018-07-07] MEDS ORDERED: SODIUM CHLORIDE 0.9% 1000ML 1,000 ML IV SCH (17:06)
[2018-07-07] MEDS ORDERED: IOPAMIDOL 370 MG/ML 200 ML INFUS..BTL INJ ONE (17:12)
[2018-07-07] MEDS ORDERED: SODIUM CHLORIDE 0.9% 50ML 50 ML ONE (17:12)
[2018-07-07] MEDS ORDERED: SODIUM CHLORIDE FLUSH 10 ML SYR INJ PRN (17:15)
--- NOTE | 2018-07-07 18:51 | History and Physical ---
HISTORY OF PRESENT ILLNESS: An 83-year-old female with past medical history positive mainly for Parkinson disease and dementia, and apparently the patient had a seizure episode with bladder incontinence. Patient was brought to the emergency room. REVIEW OF SYSTEMS: The patient is confused. She cannot give me any meaningful information. PAST MEDICAL HISTORY: Parkinson disease. History of hypertension. Dementia. ALLERGIES: REPORTED ON THE CHART. SHE IS ALLERGIC TO CODEINE. SOCIAL HISTORY: She does not smoke. She does not drink. PHYSICAL EXAMINATION: HEART: Shows regular rhythm. Normal S1 and S2 sounds. LUNGS: Clear bilaterally. ABDOMEN: Soft. EXTREMITIES: Show no evidence of cyanosis, edema or trauma. VITAL SIGNS: Blood pressure 105/53, temperature 97.5, heart rate is 72 per minute, respiratory rate is 18 per minute, oxygen saturation 95%. On the BMP: Sodium 134, potassium is 3.9, chloride 100, CO2 24, BUN 22, creatinine 0.90, glucose 119, calcium is 8.2, phosphorus 3.7, magnesium 2.2. Total bilirubin 0.2, AST , ALT 22, alkaline phosphatase 79. Troponin 0.001. Albumin 3.3. Globulin 3.9. On the CBC: White blood count 8.69, hemoglobin 12.8, hematocrit 40.1, platelet count 247,000. FINAL IMPRESSION: 1. Syncopal episode. 2. Seizure disorder. 3. Elevated liver function tests. 4. Parkinson disease. 5. Dementia. PLAN OF TREATMENT: We are going to order a CT of the head without contrast, a CT of the lumbar spine without contrast. We are going to order a UA, urine culture. Continue IV fluids. Neurology consult with Dr. Joe. Echocardiogram and carotid Doppler have been ordered. Normal saline at 120 mL an hour. Zofran 4 mg IV q.4 hours as needed. We are going to also order Tylenol. I am going to order 325 mg q.4 hours as needed for pain or fever. I am going to resume the home medications, which include aspirin 81 mg daily, Colace 100 mg twice a day, Aricept 5 mg daily, gabapentin 100 mg twice a day, midodrine 5 mg daily, Remeron 7.5 mg daily and simvastatin 40 mg daily. She was also taking Depakote 10 mg daily, Depakote 120 mg at bedtime, Depakote also 125 mg daily. Multivitamin. 150 mg twice a day. Job#: [id number] EV
[2018-07-07] MEDS: FAMOTIDINE 20 MG TAB PO SCH (19:44)
[2018-07-07] MEDS: DOCUSATE SODIUM 100 MG CAP PO SCH (19:47)
[2018-07-07] MEDS: GABAPENTIN 100 MG CAP PO SCH (19:47)
[2018-07-07 20:06] VITALS: BP 129/67
--- NOTE | 2018-07-07 20:21 | Diagnostic Imaging Report ---
History:Syncope, history of dementia Comparison studies:CT head 06/13/2018 and 09/15/2016 Technique: Axial images were obtained from the skull base to the vertex. Coronal and sagittal images reconstructed from the axial data. Intravenous contrast: None Dose modulation, iterative reconstruction, and/or weight based adjustment of the mA/kV was utilized to reduce the radiation dose to as low as reasonably achievable. Findings: Scalp/skull: No abnormalities. Extra-axial spaces: No masses. No fluid collections. Brain sulci: Mildly prominent. Ventricles: Mild compensatory dilatation. No hydrocephalus. Parenchyma: Few hypodensities in the supratentorial white matter are small vessel ischemic changes. No masses, hemorrhage, acute or chronic cortical vascular insults. Sellar/suprasellar region: No abnormalities. Craniocervical junction: Patent foramen magnum. No Chiari one malformation. Incidental findings: Atherosclerotic calcifications in the carotid siphons . Impression: No acute abnormalities. Chronic findings: 1. Mild generalized volume loss. 2. Mild supratentorial white matter small vessel ischemic changes. Signed by: DR James Marie M.D. on 07/07/2018 8:18 PM
--- NOTE | 2018-07-07 20:28 | Diagnostic Imaging Report ---
History: Syncope, fell on tail bone Comparison studies: None Technique: Axial images were obtained from T11 inferior endplate through the sacrum. Coronal and sagittal images reconstructed from the axial data. Intravenous contrast: None Dose modulation, iterative reconstruction, and/or weight based adjustment of the mA/kV was utilized to reduce the radiation dose to as low as reasonably achievable. Findings: Number of non-rib bearing vertebral bodies: 5 Alignment: Normal lordosis. No scoliosis. Soft tissues: No paraspinal abnormalities. Atherosclerotic calcifications of the abdominal aorta and branches Paraspinal muscles: Mild fatty infiltration secondary atrophy Vertebrae: No fractures, infection or neoplasm. Degenerative changes: L1-L2: Diffuse disc bulge with patent canal and mild left foraminal narrowing L2-L3: Diffuse disc bulge with patent canal and foramina L3-L4: Disc degeneration with decreased intervertebral space and vacuum disc phenomenon. Asymmetric left disc osteophyte complex results in no significant canal stenosis and mild left foraminal narrowing L4-L5: History space. Diffuse disc osteophyte complex and mild facet hypertrophy results in no significant canal stenosis and mild bilateral foraminal narrowing L5-S1: Patent canal and foramina Sacroiliac joints: No degenerative changes. IMPRESSION: 1. Mild disc degeneration more significant at L3-L4 with patent canal and mild multilevel foraminal narrowing as described above. 2. No acute lumbar spine abnormality Signed by: DR James Marie M.D. on 07/07/2018 8:25 PM
[2018-07-07 20:30] VITALS: BP 129/67
[2018-07-07] MEDS: GERITOL COMPLETE PO SCH (21:00)
[2018-07-07] MEDS ORDERED: MIRTAZAPINE 15 MG TAB PO SCH (21:00)
[2018-07-07] MEDS: DEXTROSE 5%/0.45% SOD CHL 1,000 ML IV SCH (21:20)
[2018-07-07 22:02] LABS: BILIRUBIN,URINE NEGATIVE (NEGATIVE); CLARITY,URINE CLEAR (CLEAR); COLOR,URINE YELLOW (YELLOW); KETONES,URINE NEGATIVE (NEGATIVE); LEUKOCYTE ESTERASE ,URINE NEGATIVE (NEGATIVE); NITRITE,URINE NEGATIVE (NEGATIVE); PROTEIN,URINE DIPSTICK NEGATIVE (NEGATIVE); URINE UROBILINOGEN 0.2 mg/dL (0.2 - 1)
[2018-07-07 22:12] LABS: BACTERIA,URINE RARE /HPF; EPITHELIAL CELLS,URINE RARE /LPF; RBC,URINE 0-5 /HPF (0-5); WBC,URINE (MAN) 0-5 /HPF (0-5)
[2018-07-07] MEDS: SIMVASTATIN 40 MG TAB PO SCH (23:23)
[2018-07-07] MEDS: DONEPEZIL HCL 5 MG TAB PO SCH (23:23)
[2018-07-07] MEDS: DIVALPROEX SODIUM 125 MG TABDR...ER PO SCH (23:23)
[2018-07-08] VITALS (8 sets, daily range): BP systolic 102–152; BP diastolic 51–60
[2018-07-08] MEDS: ACETAMINOPHEN 325 MG TAB PO PRN ×2 (01:35→15:15)
[2018-07-08 05:45] LABS: BASOPHILS % 0.2 % (0.0-1.0); HEMATOCRIT 33.4 % (34.2-44.1); LYMPHOCYTES % 15.7 % (18.0-39.1); MEAN CORPUSCULAR HEMOGLOBIN 32.7 pg (28-32); MEAN CORPUSCULAR HGB CONC 32.6 g/dL (31-35); MEAN CORPUSCULAR VOLUME 100.3 fL (81-99); MONOCYTES # (AUTO) 1.2 (0.2-0.8); MONOCYTES % 9.4 % (4.4-11.3); NEUTROPHILS # (AUTO) 9.4 (2.1-6.9); NEUTROPHILS % 74.4 % (38.7-80.0); PLATELET COUNT 240 x10e3/uL (140-360); RED BLOOD COUNT 3.33 x10e6/uL (3.6-5.1); RED CELL DISTRIBUTION WIDTH 13.6 % (11.7-14.4)
[2018-07-08 05:58] LABS: HEMOGLOBIN 10.9 g/dL (12.0-16.0)
[2018-07-08 06:09] LABS: ALANINE AMINOTRANSFERASE 19 IU/L (0-55); ALBUMIN 2.7 g/dL (3.5-5.0); ALBUMIN/GLOBULIN RATIO 0.9 (0.8-2.0); ALKALINE PHOSPHATASE 66 IU/L (40-150); ANION GAP 14.5 mmol/L (8-16); BLOOD UREA NITROGEN 17 mg/dL (7-26); BUN/CREATININE RATIO 22 (6-25); CALCIUM 7.6 mg/dL (8.4-10.2); CARBON DIOXIDE 23 mmol/L (22-29); CHLORIDE 102 mmol/L (98-107); CREATININE, SERUM 0.76 mg/dL (0.57-1.11); EST GLOMERULAR FILTRATION RATE > 60 ML/MIN (60-); GLUCOSE 129 mg/dL (74-118); POTASSIUM 3.5 mmol/L (3.5-5.1); SODIUM 136 mmol/L (136-145)
[2018-07-08] MEDS: FAMOTIDINE 20 MG TAB PO SCH (07:30)
[2018-07-08] MEDS: GABAPENTIN 100 MG CAP PO SCH ×2 (07:35→17:44)
[2018-07-08] MEDS: DOCUSATE SODIUM 100 MG CAP PO SCH ×2 (07:35→17:44)
[2018-07-08] MEDS: ASPIRIN 81 MG CHEW TAB PO SCH (09:00)
[2018-07-08] MEDS: LORATADINE 10 MG TAB PO SCH (09:00)
[2018-07-08] MEDS: MIDODRINE 2.5 MG TAB PO SCH (09:00)
[2018-07-08] MEDS: DEXTROSE 5%/0.45% SOD CHL 1,000 ML IV SCH (10:30)
[2018-07-08] MEDS ORDERED: LORAZEPAM INJ 2 MG/ML VIAL IV PRN (14:00)
--- NOTE | 2018-07-08 16:47 | Consultation ---
DATE OF CONSULTATION: July 08, 2018 NEUROLOGY CONSULTATION HISTORY OF PRESENT ILLNESS: Ms. Nelson is an 83-year-old woman with past medical history significant for hypotension, multiple prior urinary tract infections, and advanced dementia, reportedly of the Alzheimer's type, admitted to [facility] on July 07, 2018, with activity concerning for a seizure. At approximately 12:30 on the day of admission, the patient had walked into the bathroom and was sitting on the toilet when she experienced the abrupt onset of unresponsiveness with her eyes rolled back in her head and stiffening of her whole body. During this time, the patient vomited and simultaneously choked. Patient's caregiver does not report tongue biting or urinary incontinence. She does report bowel incontinence. This activity lasted for approximately 2 minutes. Afterwards, the patient was disoriented and tired. At present, approximately 24 hours following the event, the patient remains postictal. Ms. Nelson was brought to the Emergency Center at [facility] for further evaluation of the event described above. Upon arrival in the Emergency Center, the patient was afebrile with a blood pressure of 113/51 mmHg and a pulse of 76 beats per minute. Documentation of the patient's neurological examination in the emergency room is not available for review at present. A CT of the brain without contrast was performed while the patient was in the Emergency Center. The study did not demonstrate recent large territorial ischemia or hemorrhage. Ms. Nelson was admitted to [facility] as an inpatient for further evaluation and treatment. The patient's daughter, who is present at bedside and provides the history, reports prior syncopal events associated with urination. However, since the patient began taking midodrine for hypotension, the syncopal events have not occurred. There is no known personal history of febrile seizures or other seizures. The patient has a granddaughter who experienced a single febrile seizure at the age of 5 years. The patient's daughter does report a prior occurrence of head trauma. In 2013, the patient hit her head on the garage door, fell backwards and hit the back of her head on concrete. It is unknown whether there was loss of consciousness. The patient did require stitches and joana over the back of her head. There is no known history of meningitis or encephalitis. Ms. Nelson is on an anticonvulsant medication: Divalproex sodium 125 mg by mouth at bedtime daily. According to the patient's daughter, Ms. Nelson likely takes this medication for mood stabilization. REVIEW OF SYSTEMS: Unable to obtain as the patient is encephalopathic. PAST MEDICAL HISTORY: Hypotension, osteoarthritis, multiple urinary tract infections, gastroesophageal reflux disease, depression, prior history of migraines, advanced dementia probably of the Alzheimer's type diagnosed in August 2015. PAST SURGICAL HISTORY: Total hysterectomy, cholecystectomy, bilateral knee surgeries. PAST HOSPITALIZATIONS: Surgeries/procedures as listed, childbirth times 2, multiple Emergency Center visits for urinary tract infections. FAMILY HISTORY: The patient's paternal and maternal grandparents are . The medical histories of the paternal grandparents are unknown. The medical history of the maternal grandfather is unknown. The patient's maternal grandmother is from pancreatic cancer. Patient's father is from lung cancer. He had heart disease, and migraines as well. Ms. Nelson's mother is from natural causes. Ms. Nelson had 3 brothers. One brother is from liver cancer. The other 2 brothers are alive. One brother has heart disease. The medical history of the 2nd brother is unknown. Ms. Nelson has 2 children, both daughters, both of whom are living. Both daughters have gastroesophageal reflux disease. SOCIAL HISTORY: Ms. Nelson is . She is retired. The patient's daughter does not report current or remote tobacco or recreational drug use. Patient's daughter acknowledges occasional alcohol use. HOME MEDICATIONS 1. Aspirin 81 mg by mouth daily. 2. Cetirizine 10 mg by mouth daily. 3. Divalproex sodium 125 mg by mouth at bedtime daily. 4. Colace 100 mg by mouth twice daily. 5. Donepezil 5 mg by mouth at bedtime daily. 6. Gabapentin 100 mg by mouth twice daily. 7. Midodrine 5 mg by mouth daily. 8. Mirtazapine 7.5 mg by mouth at bedtime daily. 9. Multivitamin. 10. Ranitidine 150 mg by mouth twice daily. 11. Simvastatin 40 mg by mouth at bedtime daily. ALLERGIES: CODEINE, LEVOFLOXACIN, MACROBID. NO KNOWN FOOD ALLERGIES. NO KNOWN ALLERGIES TO LATEX. NO KNOWN ALLERGIES TO IODINE OR OTHER CONTRAST MATERIALS. PHYSICAL EXAMINATION VITAL SIGNS: Height 64 inches, weight 153 pounds. BMI 26.3 kg per meter squared. Blood pressure 111/57 mmHg. Pulse 75 beats per minute. Respiratory rate 16 breaths per minute. Oxygen saturation 92% on room air. GENERAL: The patient is drowsy, opens her eyes briefly to verbal stimulation. Patient does not appear distressed. HEENT: Normocephalic and atraumatic. Pupils are equal, round, and reactive to light. Moist mucous membranes. NECK: Supple. No appreciable thyromegaly. No appreciable carotid bruits. CARDIOVASCULAR: S1 and S2, regular rate and rhythm. No murmurs, rubs, or gallops. RESPIRATORY: Clear to auscultation bilaterally. No wheezes, rhonchi or rales. EXTREMITIES: The skin is warm and dry. No clubbing, cyanosis, or edema. The posterior tibial and dorsalis pedis pulses are 2+ and symmetric. SKIN: No rashes or lesions. NEUROLOGIC EXAMINATION MEMORY/ATTENTION: The patient is drowsy, opens her eyes briefly to verbal stimuli. Ms. Nelson is oriented to person only. CRANIAL NERVES: Cranial nerve I: Not tested. Cranial nerves II, III, IV, and : Pupils are equal and round, react briskly to light (from 4 mm to 2 mm). Extraocular movements are grossly intact. No nystagmus. Cranial nerve V: Sensation to light touch is grossly intact in the bilateral V1 through V3 distributions. Strength of the temporalis and masseter muscles is within normal limits. Cranial nerve VII: The face is symmetric as are all facial movements. Cranial nerve VIII: Hearing is grossly intact to voice bilaterally. Cranial nerves IX and X: The soft palate elevates equally and symmetrically. Cranial nerve XII: The tongue protrudes midline and moves symmetrically from side to side. STRENGTH: Bulk is normal. Ms. Nelson will not cooperate with a formal assessment of strength. There are normal functional movements of all extremities. Tone is increased in the right arm. DTRs: Deep tendon reflexes are 1+ and symmetric at the triceps, biceps, brachioradialis, and patellas. Deep tendon reflexes are absent and symmetric at the Achilles. Plantar responses are flexor bilaterally. SENSATION: Sensation is grossly intact to light touch in both arms and both legs. CEREBELLAR: Unable to assess as the patient is encephalopathic. GAIT: Unable to assess as the patient is encephalopathic. SPEECH: Spontaneous speech is limited without appreciable dysarthria or aphasia. INVOLUNTARY MOVEMENTS: None. PRONATOR DRIFT: As per motor exam. LABORATORY DATA: The most recent comprehensive metabolic panel is significant for a serum glucose of 129, calcium of 7.6, total protein of 5.7, and albumin of 2.7. An iron level is 67. B-natriuretic peptide is less than 10.0. Vitamin B12 level is 589. The CBC with differential and platelets reveals a white blood cell count of 12.58 with 74.4% neutrophils, 15.7% lymphocytes, 9.4% monocytes, 0.0% eosinophils, and 0.2% basophils. The hemoglobin and hematocrit are 10.9 and 33.4 respectively. The platelet count is 240. A urinalysis was significant for 1+ blood only. PRAVIN screen is pending. Hepatitis panel is pending. Blood cultures collected on July 07, 2018, show no growth after 24 hours. A urine culture collected on July 07, 2018, reveals no growth, holding. DIAGNOSTIC STUDIES ELECTROCARDIOGRAM, 07/07/2018: Normal sinus rhythm at 69 beats per minute. CHEST X-RAY, 07/07/2018: 1. Lines and tubes: None. 2. Lungs are grossly clear. No consolidation or effusion. 3. Cardiomediastinal silhouette is normal. Pulmonary vasculature is normal. 4. No acute bony abnormalities. CT OF THE ABDOMEN AND PELVIS, 07/07/2018: No acute abdominopelvic abnormalities. CT OF THE LUMBAR SPINE, 07/07/2018: 1. Mild disk degeneration, more significant at L3-L4, with patent canal and mild multilevel foraminal narrowing as described above. 2. No acute lumbar spine abnormality. CT OF THE BRAIN WITHOUT CONTRAST, 07/07/2018: On my review, there is no evidence of recent large territorial ischemia, hemorrhage, mass, or mass effect. There is diffuse cerebral atrophy, appropriate for age. There are findings compatible with mild to moderate chronic small vessel ischemic disease. ECHOCARDIOGRAM, 07/08/2018: Ejection fraction 65%. Trace mitral and tricuspid regurgitation. Trace to mild aortic insufficiency. BILATERAL CAROTID ARTERY ULTRASOUND WITH DOPPLER, 07/08/2018: There is no hemodynamically significant atherosclerosis in the bilateral carotid artery systems. There is antegrade flow in the bilateral vertebral arteries. ASSESSMENT AND PLAN: Ms. Nelson is an 83-year-old woman with past medical history significant for hypotension, multiple urinary tract infections (currently with a urinary tract infection per her daughter), and advanced dementia, probably of the Alzheimer type, admitted to [facility] on July 07, 2018, with a possible seizure. On neurological examination, the patient is encephalopathic. There is increased tone in the right arm. Otherwise, there are no focal findings on neurological examination. Patient's laboratory data and other diagnostic studies have been reviewed and are documented above. RECOMMENDATIONS: In my opinion, Ms. Nelson probably experienced a seizure on the afternoon of July 07, 2018. Recommendations for further evaluation are as follows: 1. An MRI of the brain without contrast will be ordered for further evaluation of structural anomalies which may give rise to seizure activity. 2. A routine EEG will be ordered to evaluate for abnormal electrical activity, which may give rise to seizure activity. 3. A valproic acid level will be drawn. According to the patient's daughter, Ms. Nelson often refuses to take her medications. There is some concern on the part of the daughter as well as her caregivers that the patient's refusal to take her medication resulted in the seizure. 4. Defer treatment of the remaining medical comorbidities to the primary and other physicians following the patient. Thank you for this consultation. I will continue to follow this patient while she remains in the hospital. Time spent: 70 minutes. Job#: [id number] KEATON HERNANDEZ
--- NOTE | 2018-07-08 18:31 | Progress Note ---
DATE: INTERNAL MEDICINE PROGRESS NOTE SUBJECTIVE: She has severe dementia. Refusing to eat at times. Apparently she took the medication for the nurse. Patient is going to go for an MRI and EEG tomorrow to find out about the seizures. PHYSICAL EXAMINATION HEART: Shows regular rhythm. Normal S1 and S2 sounds. LUNGS: Clear bilaterally. ABDOMEN: Soft. EXTREMITIES: Show no evidence of cyanosis, edema or trauma. VITAL SIGNS: Blood pressure 108/57. Temperature 97 degrees Fahrenheit. Heart rate 75 per minute. Respiratory rate is 20 per minute. Oxygen saturation 92%. On the BMP: Sodium 136, potassium 3.5, chloride 102, CO2 23, BUN 17, creatinine 0.76, glucose 129. On the CBC: White blood count 12.5, hemoglobin 10.9, hematocrit 33.4, platelet count 240,000. AST 34, ALT 19, total bilirubin 0.2, alkaline phosphatase of 66. We already did a CT of the head which showed no evidence of any stroke. She has small mild generalized volume loss, mild supratentorial white matter, small-vessel ischemic changes. CT of the abdomen came back negative. Chest x-ray came back negative. Lumbar spine CT showed no significant abnormalities except for some mild disk degeneration most significant L3 to L4 with patent canal and mild multilevel foraminal narrowing as described above. UA, urine culture, blood cultures all completely negative. Patient apparently refusing the medication at times. She had urinary retention today. A straight catheter has been done, and the nurse removed 800 mL of urine. I talked with the family about the possibility of a PEG tube as the patient refuses to eat and refuses to take medication. The family still does not want to do it. FINAL IMPRESSION 1. Syncope. 2. Seizure disorder. 3. Elevated liver function tests, which is resolved. 4. Parkinson disease. 5. Urinary retention. 6. Severe dementia. PLAN OF TREATMENT: We are going to start Provigil 100 mg twice a day because the patient is sleepy most of the time. We are going to check the TSH. Continue D5 half-normal saline at 75 mL an hour. Continue Tylenol 325 mg q.4 hours as needed for pain or fever. Aspirin 81 mg daily. Depakote 125 mg at bedtime. Colace 100 mg twice a day. Aricept 5 mg at bedtime. Pepcid 20 mg twice a day, which we are going to discontinue because the patient was started on Protonix 40 mg daily. Continue gabapentin 100 mg twice a day for neuropathy. Claritin 10 mg daily. Lorazepam 0.5 mg as needed for anxiety. Midodrine 5 mg daily for hypotension. Remeron 7.5 mg at bedtime, which we are going to stop because of the sleepiness that the patient is having. Continue with Zofran 4 mg IV q.4 hours as needed for nausea and vomiting. Continue simvastatin 40 mg daily. I discussed the case with the family at the bedside, nurse also. Time spent around 45 minutes. We are waiting for the MRI of the head and the EEG tomorrow. Job#: [id number] EV
[2018-07-08] MEDS: GERITOL COMPLETE PO SCH (21:00)
[2018-07-08] MEDS: DIVALPROEX SODIUM 125 MG TABDR...ER PO SCH (21:36)
[2018-07-08] MEDS: SIMVASTATIN 40 MG TAB PO SCH (21:36)
[2018-07-08] MEDS: DONEPEZIL HCL 5 MG TAB PO SCH (21:36)
[2018-07-09] VITALS (7 sets, daily range): BP systolic 96–136; BP diastolic 53–75
[2018-07-09] MEDS: DEXTROSE 5%/0.45% SOD CHL 1,000 ML IV SCH ×2 (03:36→12:54)
[2018-07-09] MEDS: GABAPENTIN 100 MG CAP PO SCH ×2 (06:50→18:15)
[2018-07-09] MEDS: DOCUSATE SODIUM 100 MG CAP PO SCH ×2 (06:50→18:15)
[2018-07-09] MEDS: PANTOPRAZOLE SOD 40 MG TABEC PO SCH (07:30)
[2018-07-09] MEDS: LORATADINE 10 MG TAB PO SCH (09:00)
[2018-07-09] MEDS: MODAFINIL 100 MG TAB PO SCH ×2 (09:00→18:15)
[2018-07-09] MEDS: ASPIRIN 81 MG CHEW TAB PO SCH (09:00)
[2018-07-09] MEDS: MIDODRINE 2.5 MG TAB PO SCH (09:00)
--- NOTE | 2018-07-09 12:11 | Diagnostic Imaging Report ---
Exam: Brain MRI without IV contrast History: Seizure, syncope Comparison studies: Multiple prior head CTs and brain MRIs which date to 08/24/2012, most recent head CT of 07/07/2018. Technique: Sagittal and axial T2 FS, axial DWI, axial T2*GRE, axial T1 FLAIR and axial coronal T2 FLAIR. Exam was performed at 1.5 Kaylene magnetic field strength. Intravenous contrast: None Findings: Scalp: Normal in signal. No masses. Bone marrow: Normal in signal intensity. Ventricles: Compensatory dilatation. No hydrocephalus. Extra axial spaces: No mass, no fluid collection. Parenchyma: There is generalized volume loss with a slight frontal-temporal predominance which has slightly progressed from the remote exams which date to 08/24/2012. Again identified are confluent age-related T2 FLAIR hyperintense signal changes in the periventricular white matter. There is mild volume loss along the hippocampi without associated signal changes to indicate mesial temporal sclerosis. The forniceal columns and mamillary bodies are grossly symmetric in size and signal intensity. There are no gross abnormalities of cortical development/cortical migration within the limits of this exam. Suprasellar region: No abnormalities. Craniocervical junction: Patent foramen magnum. No Chiari malformation. Vessels: Normal flow-voids in the arteries and sinuses. Paranasal sinuses: Mild T2 hyperintense inflammatory mucosal thickening in the paranasal sinuses with small left maxillary sinus retention cyst. Incidental findings: Mild T2 hyperintense inflammatory changes or effusion in the left mastoids. IMPRESSION: No acute abnormalities. No changes from the previous head CT of 07/07/2018. Chronic findings: 1. Age-related periventricular white matter changes. 2. Mild generalized volume loss with a frontotemporal predominance which has slowly progressed from remote exams which date to 2011. Signed by: Dr. Ac Dacosta M.D. on 07/09/2018 12:08 PM
[2018-07-09 12:16] LABS: BASOPHILS % 0.2 % (0.0-1.0); EOSINOPHILS # (AUTO) 0.1 (0.0-0.4); EOSINOPHILS % 0.9 % (0.0-6.0); HEMATOCRIT 29.8 % (34.2-44.1); HEMOGLOBIN 9.9 g/dL (12.0-16.0); LYMPHOCYTES # (AUTO) 1.6 (1.0-3.2); LYMPHOCYTES % 17.1 % (18.0-39.1); MEAN CORPUSCULAR HEMOGLOBIN 33.1 pg (28-32); MEAN CORPUSCULAR HGB CONC 33.2 g/dL (31-35); MEAN CORPUSCULAR VOLUME 99.7 fL (81-99); MONOCYTES # (AUTO) 0.9 (0.2-0.8); MONOCYTES % 9.1 % (4.4-11.3); NEUTROPHILS # (AUTO) 6.9 (2.1-6.9); NEUTROPHILS % 72.4 % (38.7-80.0); PLATELET COUNT 241 x10e3/uL (140-360); RED BLOOD COUNT 2.99 x10e6/uL (3.6-5.1); RED CELL DISTRIBUTION WIDTH 13.6 % (11.7-14.4)
--- NOTE | 2018-07-09 12:42 | Progress Note ---
DATE: July 09, 2018 INTERNAL MEDICINE PROGRESS NOTE SUBJECTIVE: The patient has been refusing to eat, refusing to take medications. The family has finally decided to go for the PEG tube placement. PHYSICAL EXAM: VITAL SIGNS: Blood pressure 108/53, temperature is 96.2, heart rate 73 per minute. Respiratory rate 20 per minute, oxygen is 99%. HEART: Regular rhythm. No murmur. No extra sounds. LUNGS: Clear bilaterally. ABDOMEN: Soft. No tenderness or distention. On the BMP sodium 136, potassium 3.5, chloride 102, CO2 23, BUN 17, creatinine 0.76. Glucose 129. On the CBC white blood count 12.5, hemoglobin 10.9, hematocrit 33.4, platelet count 240,000. AST 34, ALT 19, total bilirubin 0.2, alkaline phosphatase 66. FINAL IMPRESSION: 1. Seizure. 2. Poor appetite. 3. Dementia. 4. Hyperlipidemia. 5. Hypertension. 6. Hypokalemia. PLAN OF TREATMENT: Going to continue IV fluids at 75 mL an hour. Zofran 4 mg IV as needed for vomiting. Tylenol 325 mg q.4. as needed. Gabapentin 100 mg twice a day. Depakote 125 mg at bedtime. Aspirin 81 mg daily. Midodrine 5 mg daily. Colace 100 mg twice a day. Simvastatin 40 mg daily. Provigil 100 mg twice a day. Aricept 5 mg at bedtime. Claritin 10 mg daily. Protonix 40 mg daily. She is going to have an EGD as part of the workup for the seizures that she has. MRI of the brain report is in progress. Going to consult gastroenterology. Dr. King Agarwal for PEG tube placement. Family agreed with that and they understand the benefits and the risks. Job#: [id number]
[2018-07-09 13:34] LABS: INR 0.86; PROTHROMBIN TIME 12.5 seconds (11.9-14.5)
--- NOTE | 2018-07-09 14:19 | Electroencephalogram ---
DATE OF STUDY: July 09, 2018 HISTORY: This 83-year-old woman with a history of probable seizure is having an EEG for evaluation of epileptiform activity. The patient is taking the following medications that might affect the EEG: Depakote. TECHNIQUE: This is a routine, portable EEG, recorded digitally using the international 10/20 electrode placement system, and done in the inpatient setting with the patient awake and confused. The EEG is adequate for interpretation. DESCRIPTION: Well-organized, well-sustained 6-7 Hertz activity is best seen symmetrically in the posterior head regions. No focal or epileptiform activity is record. Sleep is not recorded. Photic stimulation procedures a driving response. Hyperventilation is not performed. INTERPRETATION: This electroencephalogram is abnormal with the patient awake and confused due to diffuse slowing of background electrocortical activity compatible with mild generalized encephalopathy. No epileptiform discharges are seen. Clinical correlation is recommended. Job#: [id number] JOSEPH HERNANDEZ
[2018-07-09] MEDS: SIMVASTATIN 40 MG TAB PO SCH (20:55)
[2018-07-09] MEDS: DIVALPROEX SODIUM 125 MG TABDR...ER PO SCH (20:55)
[2018-07-09] MEDS: DONEPEZIL HCL 5 MG TAB PO SCH (20:55)
[2018-07-09] MEDS: GERITOL COMPLETE PO SCH (21:00)
[2018-07-10] VITALS (9 sets, daily range): BP systolic 110–137; BP diastolic 55–65
[2018-07-10] MEDS: DEXTROSE 5%/0.45% SOD CHL 1,000 ML IV SCH ×2 (03:44→17:48)
[2018-07-10] MEDS: DOCUSATE SODIUM 100 MG CAP PO SCH ×2 (06:15→18:15)
[2018-07-10] MEDS: GABAPENTIN 100 MG CAP PO SCH ×2 (06:30→18:30)
[2018-07-10] MEDS: PANTOPRAZOLE SOD 40 MG TABEC PO SCH (07:30)
[2018-07-10] MEDS: MODAFINIL 100 MG TAB PO SCH ×2 (09:00→17:00)
[2018-07-10] MEDS: MIDODRINE 2.5 MG TAB PO SCH ×2 (09:00→09:07)
[2018-07-10] MEDS: LORATADINE 10 MG TAB PO SCH ×2 (09:00→09:06)
[2018-07-10] MEDS ORDERED: PROPOFOL IV EMULSION 10 MG/ML 20 ML VIAL ONE (14:49)
[2018-07-10] MEDS ORDERED: LIDOCAINE HCL 2% LOCAL INJ 5 ML SDV VIAL INJ ONE (14:49)
--- NOTE | 2018-07-10 15:57 | Progress Note ---
DATE: INTERNAL MEDICINE PROGRESS NOTE SUBJECTIVE: The patient was sleeping. She woke up and engaged in conversation, still confused because of her dementia. PHYSICAL EXAMINATION VITAL SIGNS: Blood pressure 112/56. Temperature 96.4. Heart rate 77 per minute. Respiratory rate 18 per minute. Oxygen saturation 96%. HEART: Regular rhythm. Normal S1 and S2 sounds. LUNGS: Clear bilaterally. ABDOMEN: Soft. LABS: On the BMP, sodium is 136, potassium 3.5, chloride 102, CO2 23, BUN 17, creatinine 0.76, glucose 129. On the CBC, white blood count 9.51; hemoglobin 9.9; hematocrit 29.8; platelet count 241,000. PT 12.5, INR 0.86. AST 24, ALT 19, total bilirubin 0.2 and alkaline phos 66. FINAL IMPRESSION 1. Questionable seizure episode. 2. Severe dementia. 3. Parkinson disease. 4. Depression. 5. Hypokalemia. 6. Polyneuropathy. 7. Hypercholesterolemia. 8. Decreased appetite. PLAN OF TREATMENT: We are going to continue with IV fluids at 75 mL an hour. She is going to go for a PEG tube due to the fact that she has erratic behavior for eating and refusing medication at times. Continue gabapentin 100 mg twice a day, Depakote 125 mg at bedtime. Continue aspirin 81 mg daily, midodrine 5 mg daily, Colace 100 mg twice a day, simvastatin 40 mg daily, Provigil 100 mg twice a day, Aricept 5 mg at bedtime, Claritin 10 mg daily, Protonix 40 mg daily. Case has been discussed with the family members at the bedside. Job#: [id number]
[2018-07-10] MEDS: SIMVASTATIN 40 MG TAB PO SCH (21:00)
[2018-07-10] MEDS: GERITOL COMPLETE PO SCH (21:00)
[2018-07-10] MEDS: DONEPEZIL HCL 5 MG TAB PO SCH (21:00)
[2018-07-10] MEDS: DIVALPROEX SODIUM 125 MG TABDR...ER PO SCH (22:11)
[2018-07-11] VITALS (8 sets, daily range): BP systolic 102–149; BP diastolic 54–75
[2018-07-11] MEDS: DEXTROSE 5%/0.45% SOD CHL 1,000 ML IV SCH ×2 (02:24→15:45)
[2018-07-11] MEDS: DOCUSATE SODIUM 100 MG CAP PO SCH ×2 (06:09→17:10)
[2018-07-11] MEDS: GABAPENTIN 100 MG CAP PO SCH ×2 (06:10→17:10)
[2018-07-11] MEDS: ACETAMINOPHEN 1000 MG/100 ML IV PRN ×2 (06:20→18:57)
[2018-07-11] MEDS: PANTOPRAZOLE SOD 40 MG TABEC PO SCH (07:30)
[2018-07-11] MEDS: LORATADINE 10 MG TAB PO SCH (09:00)
[2018-07-11] MEDS: MIDODRINE 2.5 MG TAB PO SCH (09:00)
[2018-07-11] MEDS: MODAFINIL 100 MG TAB PO SCH ×2 (09:00→17:00)
[2018-07-11] MEDS: ONDANSETRON HCL INJ 2 MG/ML VIAL IV PRN ×2 (09:50→23:40)
[2018-07-11] MEDS: MORPHINE SULFATE 2 MG/ML SYR IV PRN ×2 (09:50→23:45)
[2018-07-11] MEDS: CEFTRIAXONE SOD 2 GM VIAL IV SCH (14:06)
--- NOTE | 2018-07-11 15:24 | Progress Note ---
DATE: INTERNAL MEDICINE PROGRESS NOTE SUBJECTIVE: Patient is sleeping today. OBJECTIVE VITAL SIGNS: Blood pressure 102/54, temperature 99.5, heart rate 63 per minute, respiratory rate is 22 per minute, oxygen saturation 96%. HEART: Shows regular rhythm. Normal S1, S2 sounds. LUNGS: Clear bilaterally. ABDOMEN: Soft. EXTREMITIES: Show no evidence of cyanosis, edema or trauma. On the BMP, sodium 136, potassium 3.5, chloride 102, CO2 23, BUN 13, creatinine 0.76, glucose 129. On the CBC, white blood count 9.51, hemoglobin 9.9, hematocrit 29.8, platelet count 241,000. PT 12.5, INR 0.86. AST 34, ALT 19, total bilirubin 0.2, alkaline phosphatase 66. FINAL IMPRESSION 1. Episode of fever, rule out urinary tract infection, rule out sepsis. 2. Questionable seizures at home but no evidence of seizure disorder on the electroencephalogram. 3. Dementia. 4. Anemia. 5. Hypokalemia. 6. Decreased appetite. 7. Hypercholesterolemia. PLAN OF TREATMENT: We are going to continue with D5 normal saline 75 mL an hour, Zofran 4 mg IV q.4 hours as needed, Tylenol 325 mg q.4 hours as needed, gabapentin 100 mg twice a day, Depakote 125 mg at bedtime. Continue aspirin 81 mg daily, midodrine 5 mg daily, Tylenol 1000 mg IV q.6 hour while he is n.p.o. Continue Colace 100 mg twice a day, simvastatin 40 mg daily, modafinil 100 mg twice a day because of sleepiness. Continue morphine 2 mg IV q.3 hours as needed for pain, Aricept 5 mg at bedtime, Claritin 10 mg daily, Protonix 40 mg daily. Blood culture and urine culture has been done, started on empiric Rocephin [address] Montanez will see her from infectious disease point of view. EGD showed gastritis also. Job#: [id number]
[2018-07-11] MEDS: ACYCLOVIR SODIUM INJ 500 MG in SODIUM CHLORIDE 0.9% 100 ML 100 ML IV SCH (16:52)
--- NOTE | 2018-07-11 18:32 | Consultation ---
DATE OF CONSULTATION: REASON FOR CONSULTATION: Fever. Thank you so much for asking me to see this patient. HISTORY OF PRESENT ILLNESS: This patient who does not really provide any meaningful information. History was taken mainly from her caregiver. She is an 83-year-old female who was recently getting progressively worse. She needs full care. She is not taking her medications and she should be according to the caregiver when she came here. She had no fever when she came here. The patient comes here because apparently she had seizure. She does have underlying history of hypertension, UTI, dementia, Alzheimer, multiple admissions for UTI and aspiration before, but this time comes in with seizure. She was seen by neurology. The patient was seen by neurology as mentioned above and also because she was unable to swallow, a feeding tube was placed yesterday, but today she has no fever. Infectious disease was consulted. The patient does not really provide any meaningful information. She is lying in bed comfortably according to the caregiver. She looks about the same. She does have underlying history of hypertension, osteoarthritis, UTI, reflux disease, depression, dementia. PAST SURGICAL HISTORY: Total hysterectomy, cholecystectomy, bilateral total knee surgery, and then recently she had a feeding tube yesterday. SOCIAL HISTORY: There is no smoking, drug abuse, or alcohol abuse. FAMILY HISTORY: Noncontributory, but I reviewed the notes. She is . No smoking, drug abuse, or alcohol abuse. She has history of smoking a long time ago. MEDICATIONS: She is on aspirin, Colace, DuoNebs, Benadryl, gabapentin, midodrine, loratadine, simvastatin. ALLERGIES: LEVAQUIN, MACROBID. REVIEW OF SYSTEMS: Could not be obtained. PHYSICAL EXAMINATION GENERAL: She is currently sleeping comfortably. HEENT: Normocephalic, not appear icteric. NECK: Supple. No JVD. No lymphadenopathy. No thyromegaly. CHEST: Clear. Bilateral coarse. COR: S1, S2. No S3, S4, murmur. ABDOMEN: Soft. Bowel sounds present. No tenderness. EXTREMITIES: No edema. SKIN: No rash. IMPRESSION: Fever, complains in the hospital. She did have on July 08, 101.7 and now on July 11, she had 101.5. Blood cultures so far has no growth. Urine cultures, no growth. She had chest x-ray when she first came which has no consolidation. Medication she is continue on Rocephin, Zofran, acetaminophen, Tylenol, Provigil, sodium, Claritin, Zocor, Neurontin, NSAIDs, Colace. Patient recently had seizure, underlying history of dementia. We will get a chest x-ray to rule aspiration pneumonia. I am going to order an LP under fluoro, put her on acyclovir until we will get spinal fluid. It could be drug related, but we need to rule out other possibilities such as pneumonia, encephalitis, meningitis, etc. and will follow. Thank you for asking me to see this patient. Job#: [id number] MICHELE
[2018-07-11] MEDS: GERITOL COMPLETE PO SCH (21:00)
[2018-07-11] MEDS: DIVALPROEX SODIUM 125 MG TABDR...ER PO SCH (21:06)
[2018-07-11] MEDS: SIMVASTATIN 40 MG TAB PO SCH (21:06)
[2018-07-11] MEDS: DONEPEZIL HCL 5 MG TAB PO SCH (21:06)
[2018-07-12] VITALS (8 sets, daily range): BP systolic 119–145; BP diastolic 56–78
[2018-07-12] MEDS: ACYCLOVIR SODIUM INJ 500 MG in SODIUM CHLORIDE 0.9% 100 ML 100 ML IV SCH ×3 (00:10→16:52)
[2018-07-12] MEDS: CEFTRIAXONE SOD 2 GM VIAL IV SCH ×2 (01:36→14:39)
[2018-07-12] MEDS: DEXTROSE 5%/0.45% SOD CHL 1,000 ML IV SCH ×2 (05:00→17:48)
[2018-07-12] MEDS: ACETAMINOPHEN 1000 MG/100 ML IV PRN (05:20)
[2018-07-12] MEDS: DOCUSATE SODIUM 100 MG CAP PO SCH (06:00)
[2018-07-12] MEDS: GABAPENTIN 100 MG CAP PO SCH ×2 (06:37→16:52)
[2018-07-12] MEDS: PANTOPRAZOLE SOD 40 MG TABEC PO SCH (07:30)
[2018-07-12] MEDS: LORATADINE 10 MG TAB PO SCH (08:20)
[2018-07-12] MEDS: MODAFINIL 100 MG TAB PO SCH ×2 (08:20→16:35)
[2018-07-12] MEDS: MIDODRINE 2.5 MG TAB PO SCH (08:20)
[2018-07-12] MEDS: POLYETHYLENE GLYCOL 3350 17 GM PACK PO PRN (10:08)
--- NOTE | 2018-07-12 13:12 | Progress Note ---
DATE: INTERNAL MEDICINE PROGRESS NOTE SUBJECTIVE: Patient is doing well. No significant complaint. PHYSICAL EXAM VITAL SIGNS: Blood pressure 119/57, temperature 97.9, heart rate 79 per minute, respiratory rate 18 per minute, oxygen saturation 94%. EXTREMITIES: Show no evidence of cyanosis, edema, or trauma. LABORATORY DATA: On the BMP, sodium 133, potassium 3.5, chloride 102, CO2 of 23, BUN 17, creatinine 0.76, glucose 129. On the CBC, white blood count 9.51, hemoglobin 9.9, hematocrit 29.8, platelet count 241,000. PT 12.5, INR 0.86. AST 24, ALT 19, total bilirubin 0.2, alkaline phosphatase 66. FINAL IMPRESSION 1. Episode of fever, which is resolved. So far blood culture and urine culture have been negative. 2. Single episode of seizure, which is resolved with a negative workup. 3. Neuropathy. 4. Anemia with prior dementia. 5. Poor appetite. 6. Anemia of chronic disease. 7. History of recurrent urinary tract infection. PLAN OF TREATMENT: We consulted Dr. Montanez of infectious disease. He ordered a lumbar puncture, which the family refusing. He put the patient on acyclovir q.8 hours. We are going to discontinue IV fluid. Continue Zofran 4 mg IV q.4 hours as needed for nausea and vomiting, Aricept 5 mg at bedtime, Claritin 10 mg daily, Protonix 40 mg daily, Tylenol 625 mg q.4 hours as needed, gabapentin 800 mg q.12 hours, Depakote 125 mg at bedtime. Continue aspirin 81 mg daily, midodrine 5 mg daily, morphine 2 mg IV q.3 hours as needed, Colace 100 mg twice a day, simvastatin 40 mg daily, Provigil 100 mg twice a day. She is on ceftriaxone 2 grams IV twice a day because of episode of fever while the workup is in progress. We are going to consult Dr. Douglas for Urology because of history of recurrent UTI and she had evidence of bladder lesion in the prior admission. The family want to have her here because difficult to get to the office. Dr. Harrell will be covering for me starting tomorrow Friday, July 13, 2018 at 7 a.m. until discharge or until July 20, 2018. Job#: [id number] ROGE
--- NOTE | 2018-07-12 13:18 | Progress Note ---
DATE: INFECTIOUS DISEASE PROGRESS NOTE SUBJECTIVE: Ms. Nelson seems to be better, more alert today. No new complaints. The family refused LP, discussed with internal medicine, discussed with the caregiver. The patient was currently up in chair, seems to be more alert than yesterday. REVIEW OF SYSTEMS: There is nothing new. OBJECTIVE VITAL SIGNS: Stable. Currently, there is no fever. HEENT: She is normocephalic, not appear icteric. CHEST: Clear bilateral. HEART: S1, S2. No S3, S4, or murmur. ABDOMEN: Soft. Bowel sounds presents. No tenderness. No hepatosplenomegaly. EXTREMITIES: No edema. SKIN: There is no rash. No erythema or edema. LABS: Her BUN is 17, creatinine 0.76. White count 9.5, hemoglobin 9.9. Her blood cultures remained negative. Urine culture is negative. IMPRESSION: Fever, etiology unclear, resolved. Differential diagnosis still remains meningitis/encephalitis. She did respond to acyclovir versus this is just drug-related or another. I think, at this stage, they have refused the LP. We are force to give her 2 weeks of acyclovir and Rocephin. We will follow. Job#: [id number] SUB
[2018-07-12] MEDS: DOCUSATE SODIUM LIQD 100 MG/10 ML UDC NG SCH (16:52)
[2018-07-12] MEDS: GERITOL COMPLETE PO SCH (21:00)
[2018-07-12] MEDS: SIMVASTATIN 40 MG TAB PO SCH (21:01)
[2018-07-12] MEDS: DONEPEZIL HCL 5 MG TAB PO SCH (21:01)
[2018-07-12] MEDS: DIVALPROEX SODIUM 125 MG TABDR...ER PO SCH (21:01)
[2018-07-13] VITALS: BP 168/72
[2018-07-13] MEDS: ACYCLOVIR SODIUM INJ 500 MG in SODIUM CHLORIDE 0.9% 100 ML 100 ML IV SCH ×4 (00:13→23:30)
[2018-07-13] MEDS: ONDANSETRON HCL INJ 2 MG/ML VIAL IV PRN (00:36)
[2018-07-13] MEDS: MORPHINE SULFATE 2 MG/ML SYR IV PRN (00:36)
[2018-07-13] MEDS: CEFTRIAXONE SOD 2 GM VIAL IV SCH ×2 (01:11→13:41)
[2018-07-13 05:03] VITALS: BP 124/66
[2018-07-13] MEDS: GABAPENTIN 100 MG CAP PO SCH ×2 (06:08→18:30)
[2018-07-13] MEDS: PANTOPRAZOLE SOD 40 MG TABEC PO SCH (07:30)
[2018-07-13 08:50] VITALS: BP 134/68
[2018-07-13] MEDS: MIDODRINE 2.5 MG TAB PO SCH (09:30)
[2018-07-13] MEDS: ASPIRIN 81 MG CHEW TAB PO SCH (09:30)
[2018-07-13] MEDS: POLYETHYLENE GLYCOL 3350 17 GM PACK PO PRN (09:30)
[2018-07-13] MEDS: DOCUSATE SODIUM LIQD 100 MG/10 ML UDC NG SCH ×2 (09:30→17:00)
[2018-07-13] MEDS: MODAFINIL 100 MG TAB PO SCH ×2 (09:30→17:00)
[2018-07-13] MEDS: DEXTROSE 5%/0.45% SOD CHL 1,000 ML IV SCH ×2 (09:30→23:34)
[2018-07-13] MEDS: LORATADINE 10 MG TAB PO SCH (09:30)
[2018-07-13] MEDS: ACETAMINOPHEN 325 MG TAB PO PRN (10:00)
--- NOTE | 2018-07-13 10:03 | Progress Note ---
DATE: July 13, 2018 I am covering for Dr. Sandy. Ms. Nelson is an 83-year-old female with a history of dementia, Parkinson disease that was referred to the emergency room with an episode like a seizure episode with bladder incontinence. Since then, the patient has been seen by infectious disease and urologist for recurrent UTI. PHYSICAL EXAMINATION GENERAL: Today, she is awake. She is alert. VITALS: Temperature is 99, blood pressure 134/68. HEART: Regular rate. LUNGS: Clear to auscultation. ABDOMEN: Soft. BLOOD WORK: White count is 9.51, hemoglobin 9.9, hematocrit 29.8. Potassium is 3.5, creatinine 0.76, glucose 126. Coagulation normal. Urine did not show any white blood cells. PRAVIN negative. Hepatitis profile was negative. Blood cultures were negative. Urine culture shows no growth. She had a brain MRI that shows no acute abnormalities. Had a head CT that shows no acute abnormalities. Lumbar spine CT showed mild disk degeneration. No acute findings. She had an abdominal and pelvic CT that showed no acute abnormalities. She had a chest x-ray done with no acute findings. ASSESSMENT AND PLAN 1. Fever of unknown origin: Rule out meningitis and encephalitis. 2. History of recurrent urinary tract infections. 3. Single episode of seizure. 4. Neuropathy. 5. Anemia of chronic disease. 6. Poor appetite. PLAN: At the present time, the patient's family refused lumbar puncture. The patient was started on IV antibiotics and IV acyclovir. Urology consult was requested with Dr. Douglas due history of recurrent UTIs and previous lesion in the bladder. Apparently, Dr. Douglas saw him today. He will probably go for a procedure. Continue present time. This was discussed with the patient and caregiver. All questions were answered to satisfaction. Job#: [id number] JOSEPH
[2018-07-13 12:03] VITALS: BP 134/68
[2018-07-13 12:47] VITALS: BP 107/57
[2018-07-13 20:00] VITALS: BP 121/58
[2018-07-13] MEDS: DIVALPROEX SODIUM 125 MG TABDR...ER PO SCH (21:00)
[2018-07-13] MEDS: GERITOL COMPLETE PO SCH (21:00)
[2018-07-13] MEDS: SIMVASTATIN 40 MG TAB PO SCH (21:00)
[2018-07-13] MEDS: DONEPEZIL HCL 5 MG TAB PO SCH (21:00)
[2018-07-14] VITALS: BP 138/64
[2018-07-14] MEDS: CEFTRIAXONE SOD 2 GM VIAL IV SCH ×2 (01:30→14:38)
[2018-07-14 04:00] VITALS: BP 141/80
[2018-07-14] MEDS: GABAPENTIN 100 MG CAP PO SCH (05:44)
[2018-07-14 07:38] VITALS: BP 151/67
[2018-07-14] MEDS: ACYCLOVIR SODIUM INJ 500 MG in SODIUM CHLORIDE 0.9% 100 ML 100 ML IV SCH ×2 (08:00→16:00)
[2018-07-14] MEDS: LORATADINE 10 MG TAB PO SCH (09:00)
[2018-07-14] MEDS: ASPIRIN 81 MG CHEW TAB PO SCH (09:00)
[2018-07-14] MEDS: DOCUSATE SODIUM LIQD 100 MG/10 ML UDC NG SCH (09:00)
[2018-07-14] MEDS: MIDODRINE 2.5 MG TAB PO SCH (09:00)
[2018-07-14] MEDS: MODAFINIL 100 MG TAB PO SCH ×2 (09:00→16:55)
[2018-07-14] MEDS: PANTOPRAZOLE SOD 40 MG TABEC PO SCH (09:15)
[2018-07-14 11:34] VITALS: BP 117/57
[2018-07-14 11:35] VITALS: BP 117/57
[2018-07-14] MEDS: DEXTROSE 5%/0.45% SOD CHL 1,000 ML IV SCH (11:45)
--- NOTE | 2018-07-14 12:17 | Discharge Summary ---
Ms. Nelson is an 83-year-old female with history of Parkinson disease, dementia, came to the emergency room with 1 seizure episode with bladder incontinence. She was found to have fever. Etiology of the fever is not very clear. Family refused LTAC. Dr. Montanez and Dr. Douglas following the patient with us. She was accepted to LTAC, so she is going to be transferred today. PHYSICAL EXAMINATION GENERAL: Today, she is awake and alert. VITAL SIGNS: Temperature is 96.9, blood pressure 151/67. HEART: Regular rate. LUNGS: Poor inspiratory effort. ABDOMEN: Soft. BLOOD WORK: Potassium 3.5, creatinine is 0.76, glucose 129. White count 9.51, hemoglobin 9.9, hematocrit 29.8. DISCHARGE DIAGNOSES 1. Fever of unknown origin, rule out meningitis and encephalitis. 2. History of recurrent urinary tract infection. 3. One single episode of seizure. 4. Anemia of chronic disease. 5. Poor appetite. 6. Dementia. 7. Parkinson disease. PLAN: At the present time, patient's family refused lumbar puncture. She is on IV Rocephin, acyclovir for at least 2 weeks. She is going to be transferred to [facility] to continue her treatment. Continue all medications. Continue to monitor mental status. All this was discussed with patient and family at bedside. All questions were answered to satisfaction. Please see home medication reconciliation list. Job#: [id number]
[2018-07-14] MEDS ORDERED: BISACODYL 10 MG SUPP PR ONE (12:30)
[2018-07-14 15:48] VITALS: BP 134/61
== END 2018-07-14 17:45 | DRG 100 ==
LOC: ER 13:21 → ERHOLD 17:32 → MED/SURG 19:52 → MED/SURG3 07-13 13:34
PROVIDERS: ADMIT Internal Medicine; ATTEND Internal Medicine
PROC: 0DJ08ZZ Inspection of Upper Intestinal Tract, Via Natural or Artificial Opening Endoscopic (ICD-10-PCS; 2018-07-10)
PROC: 0DH63UZ Insertion of Feeding Device into Stomach, Percutaneous Approach (ICD-10-PCS; principal; 2018-07-10 15:30)
DX: R56.9 Unspecified convulsions (principal); G03.9 Meningitis, unspecified; G04.90 Encephalitis and encephalomyelitis, unspecified; N39.0 Urinary tract infection, site not specified; F05 Delirium due to known physiological condition; F02.81 Dementia in other diseases classified elsewhere, unspecified severity, with behavioral disturbance; G20 Parkinson's disease; F02.80 Dementia in other diseases classified elsewhere, unspecified severity, without behavioral disturbance, psychotic disturbance, mood disturbance, and anxiety; R94.5 Abnormal results of liver function studies; Z87.440 Personal history of urinary (tract) infections; R50.9 Fever, unspecified; D63.8 Anemia in other chronic diseases classified elsewhere; R63.0 Anorexia; Z53.29 Procedure and treatment not carried out because of patient's decision for other reasons; G30.9 Alzheimer's disease, unspecified; K21.9 Gastro-esophageal reflux disease without esophagitis; F32.9 Major depressive disorder, single episode, unspecified; G30.8 Other Alzheimer's disease; Z79.82 Long term (current) use of aspirin; Z79.899 Other long term (current) drug therapy; G62.9 Polyneuropathy, unspecified; E87.6 Hypokalemia; E78.5 Hyperlipidemia, unspecified; R33.9 Retention of urine, unspecified
CPT/HCPCS: 36415; 43246; 70450; 70551; 71045; 72131; 74177; 80053; 80164; 81001; 82607; 83540; 83735; 83880; 84100; 84484; 85025; 85610; 86039; 87040; 87086; 93005; 93306; 93880; 95816; 97139; 99284; J0696; J2001; J2270; J2405; J7030; Q9967

== ENCOUNTER 2018-08-16 11:26 | Observation (INO) | payer MEDICARE, OTHER ==
[~2018-08-16] VITALS: Ht 160 cm; Wt 66.2 kg
[~2018-08-16 11:26] MED LIST changes: +ASPIR 8181 MG PEG
[2018-08-16 12:33] LABS: BASOPHILS # (AUTO) 0.1 (0.0-0.1); BASOPHILS % 0.6 % (0.0-1.0); EOSINOPHILS # (AUTO) 0.2 (0.0-0.4); EOSINOPHILS % 2.6 % (0.0-6.0); HEMATOCRIT 38.2 % (34.2-44.1); HEMOGLOBIN 12.1 g/dL (12.0-16.0); LYMPHOCYTES # (AUTO) 2.2 (1.0-3.2); LYMPHOCYTES % 24.5 % (18.0-39.1); MEAN CORPUSCULAR HEMOGLOBIN 32.5 pg (28-32); MEAN CORPUSCULAR HGB CONC 31.7 g/dL (31-35); MEAN CORPUSCULAR VOLUME 102.7 fL (81-99); MONOCYTES # (AUTO) 0.7 (0.2-0.8); NEUTROPHILS # (AUTO) 5.7 (2.1-6.9); NEUTROPHILS % 63.9 % (38.7-80.0); PLATELET COUNT 344 x10e3/uL (140-360); RED BLOOD COUNT 3.72 x10e6/uL (3.6-5.1); RED CELL DISTRIBUTION WIDTH 14.6 % (11.7-14.4)
[2018-08-16 12:40] LABS: INR 0.86; PROTHROMBIN TIME 12.5 seconds (11.9-14.5)
[2018-08-16 12:41] LABS: PARTIAL THROMBOPLASTIN TIME 25.7 seconds (23.8-35.5)
[2018-08-16 12:47] LABS: CLARITY,URINE CLEAR (CLEAR); COLOR,URINE YELLOW (YELLOW); LEUKOCYTE ESTERASE ,URINE NEGATIVE (NEGATIVE); NITRITE,URINE NEGATIVE (NEGATIVE); PROTEIN,URINE DIPSTICK NEGATIVE (NEGATIVE)
[2018-08-16 12:48] LABS: BILIRUBIN,URINE NEGATIVE (NEGATIVE); EPITHELIAL CELLS,URINE RARE /LPF; KETONES,URINE NEGATIVE (NEGATIVE); URINE UROBILINOGEN 0.2 mg/dL (0.2 - 1)
[2018-08-16 12:50] LABS: ALANINE AMINOTRANSFERASE < 6 IU/L (0-55); ALBUMIN 3.6 g/dL (3.5-5.0); ALBUMIN/GLOBULIN RATIO 0.8 (0.8-2.0); ALKALINE PHOSPHATASE 74 IU/L (40-150); BLOOD UREA NITROGEN 15 mg/dL (7-26); BUN/CREATININE RATIO 13 (6-25); CALCIUM 9.7 mg/dL (8.4-10.2); CARBON DIOXIDE 27 mmol/L (22-29); CHLORIDE 99 mmol/L (98-107); CREATINE KINASE 30 IU/L (29-168); CREATININE, SERUM 1.16 mg/dL (0.57-1.11); EST GLOMERULAR FILTRATION RATE 44 ML/MIN (60-); GLUCOSE 92 mg/dL (74-118); LIPASE 20 U/L (8-78); MAGNESIUM 2.2 MG/DL (1.3-2.1); SODIUM 138 mmol/L (136-145)
--- NOTE | 2018-08-16 12:51 | Diagnostic Imaging Report ---
Exam: Head CT without contrast Indication: Altered mental status Comparison: Brain MRI 07/09/2018. Head CT 07/07/2018. Technique: Axial images were obtained from the skull base to the vertex. Coronal and sagittal images reconstructed from the axial data. Dose modulation, iterative reconstruction, and/or weight based adjustment of the mA/kV was utilized to reduce the radiation dose to as low as reasonably achievable. Intravenous contrast: None Findings: Scalp/skull: No abnormalities. Extra-axial spaces: No masses. No fluid collections. Brain sulci: Moderately prominent , specifically in the frontal sulci and sylvian fissures. Ventricles: Mildly dilated. No acute hydrocephalus. Parenchyma: Confluent hypodensities in the supratentorial periventricular white matter are nonspecific small vessel ischemic/gliotic changes. No masses, hemorrhage, acute or chronic cortical vascular insults. Sellar/suprasellar region: No abnormalities. Craniocervical junction: Patent foramen magnum. No Chiari one malformation. Incidental findings: Atherosclerotic calcifications in the carotid siphons . Impression: 1. No acute abnormalities. 2. No changes when compared to the most recent head CT on 07/07/2018 and with the MRI on 07/09/2018. 3. Unchanged moderate predominantly frontal volume loss, ischemic/gliotic changes in the supratentorial periventricular white matter and prominent sylvian fissures. Consider normal pressure hydrocephalus, in the appropriate clinical setting. A preliminary report was provided by Dr. Thorpe on 08/16/2018 12:50 PM. Signed by: Dr. Mal Bautista M.D. on 08/16/2018 1:37 PM
[2018-08-16 13:10] LABS: THYROID STIMULATING HORMONE 3.698 uIU/mL (0.350-4.940)
--- NOTE | 2018-08-16 13:35 | Diagnostic Imaging Report ---
EXAMINATION: CHEST SINGLE (PORTABLE) INDICATION: ^ERMD ORDER ^[id number] ^1240 ^Y COMPARISON: 06/12/2018 FINDINGS: AP view TUBES and LINES: None. LUNGS: Lungs are well inflated. Lungs are clear. There is no evidence of pneumonia or pulmonary edema. PLEURA: No significant pleural effusion or pneumothorax. HEART AND MEDIASTINUM: The cardiomediastinal silhouette is unremarkable. BONES AND SOFT TISSUES: No acute osseous lesion. Soft tissues are unremarkable. UPPER ABDOMEN: No free air under the diaphragm. IMPRESSION: No acute thoracic abnormality. Signed by: Dr. Ashish Farnsworth MD on 08/16/2018 1:32 PM
--- NOTE | 2018-08-16 14:00 | NUR ---
PT SITTING UP IN BED AND IS MORE ALERT NOW THAN WHEN SHE FIRST ARRIVED TO ER RM 5. PT ABLE TO GET UP TO BEDSIDE COMMODE WITH ASSISTANCE TO VOID. PT TO BE ADMITTED AND IS AWARE OF THIS IS DAUGHTER AND TRANSFORMER TESTER.ENDING ORDERS AND ROOM ASSIGNMENT AT THIS TIME.
--- NOTE | 2018-08-16 17:05 | NUR ---
PT SITTING UP IN BED TALKING WITH HER FAMILY AND CONTINUES TO DENY PAIN AT THIS TIME. VENOUS DOPPLER DONE. PT TO BE ADMITTED, PENDING ROOM ASSIGNMENT AT THIS TIME. PT/DAUGHTER/RETAIL RECEIVING CLERK AWARE OF THIS.
[2018-08-16] MEDS ORDERED: ONDANSETRON HCL INJ 2 MG/ML VIAL IV PRN (17:15)
[2018-08-16] MEDS ORDERED: GABAPENTIN100 MG PEG (17:33)
[2018-08-16] MEDS ORDERED: SINEMET 25-1001 EACH PEG (17:33)
[2018-08-16] MEDS ORDERED: CARBIDOPA-LEVO1 EAC1 PEG (17:33)
[2018-08-16] MEDS ORDERED: ROPINIROLE HC0.25 MG PEG (17:33)
[2018-08-16] MEDS ORDERED: PROVIGIL100 MG PEG ×2 (17:33→21:25)
[2018-08-16] MEDS ORDERED: MIRTAZAPINE30 MG PEG (17:33)
[2018-08-16] MEDS ORDERED: CHILDREN'S CLARI5 MG PO (17:50)
[2018-08-16] MEDS ORDERED: VALPROIC A250 MG/5 M PEG (17:50)
--- NOTE | 2018-08-16 18:45 | NUR ---
REPORT GIVEN TO VIELKA MORELOS FLOOR NURSE. PT TO BE TRANSPORTED TO FLOOR AFTER BLOOD COLLECTED FOR CARDIAC ENZYME SET #2. SAFETY ASSOCIATE AT BEDSIDE AND AWARE OF ROOM #.
[2018-08-16 19:00] VITALS: BP 121/58
[2018-08-16] MEDS: SODIUM CHLORIDE 0.9% 1000ML 1,000 ML IV SCH (19:10)
[2018-08-16 19:35] VITALS: BP 121/58
[2018-08-16 19:38] LABS: CREATINE KINASE MB 1.2 ng/mL (0-5.0)
--- NOTE | 2018-08-16 21:20 | NUR ---
Spoke w/ Dr. Chen via telephone, the okay was given to continue home meds.
[2018-08-16] MEDS: DEPAKENE 500MG/10ML UDC PEG SCH ×2 (22:27→22:28)
[2018-08-17] VITALS: BP 130/59
[2018-08-17 04:31] LABS: ANION GAP 15.7 mmol/L (8-16); CALCIUM 8.8 mg/dL (8.4-10.2); CREATININE, SERUM 0.96 mg/dL (0.57-1.11); POTASSIUM 3.7 mmol/L (3.5-5.1)
[2018-08-17 05:07] LABS: CREATINE KINASE MB 0.6 ng/mL (0-5.0)
[2018-08-17 05:57] LABS: BASOPHILS # (AUTO) 0.1 (0.0-0.1); BASOPHILS % 0.6 % (0.0-1.0); EOSINOPHILS # (AUTO) 0.2 (0.0-0.4); EOSINOPHILS % 2.6 % (0.0-6.0); HEMATOCRIT 31.2 % (34.2-44.1); HEMOGLOBIN 10.1 g/dL (12.0-16.0); LYMPHOCYTES # (AUTO) 2.3 (1.0-3.2); LYMPHOCYTES % 27.5 % (18.0-39.1); MEAN CORPUSCULAR HEMOGLOBIN 32.7 pg (28-32); MEAN CORPUSCULAR HGB CONC 32.4 g/dL (31-35); MONOCYTES # (AUTO) 0.8 (0.2-0.8); MONOCYTES % 9.9 % (4.4-11.3); NEUTROPHILS # (AUTO) 4.9 (2.1-6.9); PLATELET COUNT 292 x10e3/uL (140-360); RED BLOOD COUNT 3.09 x10e6/uL (3.6-5.1); RED CELL DISTRIBUTION WIDTH 14.9 % (11.7-14.4)
--- NOTE | 2018-08-17 06:21 | NUR ---
Consults placed w/ Dr. Joe & Dr. John. Spoke w/ Dr. Joe via telephone, stated she will see the patient this afternoon.
[2018-08-17] MEDS: SODIUM CHLORIDE 0.9% 1000ML 1,000 ML IV SCH ×2 (06:44→23:24)
[2018-08-17 08:28] VITALS: BP 95/50
[2018-08-17] MEDS ORDERED: ASPIRIN 81 MG ENTERIC COATED PO SCH (09:00)
[2018-08-17] MEDS ORDERED: DIVALPROEX SODIUM 125 MG TABDR...ER PO SCH (09:00)
--- NOTE | 2018-08-17 09:00 | NUR ---
PLACED CALL TO DR. RODRIGUEZ TO MAKE HIM AWARE PATIENT DID NOT VOID ALL NIGHT. WAITING FOR CALL BACK
--- NOTE | 2018-08-17 09:20 | NUR ---
DR. PASTOR CALLED BACK INFORMED HIM PATIENT HAD VOIDED ALREADY HAT WAS PLACED AND SHE VOIDED 400ML OF CLEAR YELLOW URINE, BLADDER SCANNED PATIENT POSIT VOID RESIDUAL WAS GREATER THAN 320MLS. RECEIVED ORDERS TO STRAIGHT CATH PATIENT X1. IF PATIENT CONTINUES NOT VOIDING THAN WILL PLACE A LUCAS CATHETER.
[2018-08-17] MEDS: MIDODRINE 2.5 MG TAB PEG SCH (09:51)
[2018-08-17] MEDS: ASPIRIN 81 MG CHEW TAB PEG SCH (09:51)
[2018-08-17] MEDS: FAMOTIDINE 20 MG TAB PEG SCH ×2 (09:51→18:14)
[2018-08-17] MEDS: CARBIDOPA/LEVODOPA 25/100 TAB PEG SCH ×2 (09:52→18:14)
[2018-08-17] MEDS: MODAFINIL 100 MG TAB PEG SCH (09:52)
[2018-08-17] MEDS: GABAPENTIN 100 MG CAP PEG SCH ×2 (09:53→22:00)
[2018-08-17] MEDS: DEPAKENE 500MG/10ML UDC PEG SCH ×2 (10:07→18:14)
[2018-08-17 11:40] LABS: CLARITY,URINE CLEAR (CLEAR); COLOR,URINE YELLOW (YELLOW); LEUKOCYTE ESTERASE ,URINE NEGATIVE (NEGATIVE)
[2018-08-17 11:41] LABS: BILIRUBIN,URINE NEGATIVE (NEGATIVE); KETONES,URINE NEGATIVE (NEGATIVE); NITRITE,URINE NEGATIVE (NEGATIVE); PROTEIN,URINE DIPSTICK NEGATIVE (NEGATIVE); URINE UROBILINOGEN 0.2 mg/dL (0.2 - 1)
[2018-08-17 11:51] LABS: BACTERIA,URINE RARE /HPF; EPITHELIAL CELLS,URINE RARE /LPF
[2018-08-17] MEDS: DOCUSATE SODIUM 100 MG CAP PEG SCH (12:30)
--- NOTE | 2018-08-17 12:43 | NUR ---
Observation status discussed with Pt's daughter Winnie Barber [phone]. CM answered all her questions. Discussed LAVONNE letter. Signed copy placed in chart. Copy left in transition of care folder at bedside for Winnie.
[2018-08-17 12:49] VITALS: BP 123/55
--- NOTE | 2018-08-17 13:22 | History and Physical ---
ADDENDUM Patient was found to have a positive D-dimer. I am going to order chest CT to rule out PE. The venous Doppler is negative. EKG is normal. Job#: [id number] JOSEPH
--- NOTE | 2018-08-17 13:23 | History and Physical ---
HISTORY OF PRESENT ILLNESS: Patient is an 83-year-old female with past medical history positive for dementia, Parkinson disease, orthostatic hypotension. Patient came because she fainted while she was on the toilet. REVIEW OF SYSTEMS: The patient remains confused, and she cannot give any information. PAST MEDICAL HISTORY: Parkinson disease and dementia. ALLERGIES: ALLERGIC TO CODEINE. SOCIAL HISTORY: She does not smoke and does not drink. PAST MEDICAL HISTORY: Parkinson's and dementia. PHYSICAL EXAMINATION VITAL SIGNS: Blood pressure 195/50, temperature 96.3, heart rate 74 per minute, respiratory rate 20 per minute. Oxygen saturation 94%. HEART: Regular rhythm. Normal S1, S2 sounds. LUNGS: Clear bilaterally. ABDOMEN: Soft. EXTREMITIES: No evidence of cyanosis, edema or trauma. LABS: On the BMP, sodium 139, potassium 3.7, chloride 102, CO2 25, BUN 15, creatinine 0.96. Glucose 91. On the CBC, white blood count 8.21, hemoglobin 10.1, hematocrit 31.2, platelet count 292,000. PT 12.5, INR 0.86, PTT 25.7. AST 24, ALT 6, total bilirubin 0.5, alkaline phosphatase 74. FINAL IMPRESSION 1. Syncope. 2. Rule out urinary tract infection. 3. Parkinson disease. 4. Dementia. 5. Urinary retention. PLAN OF TREATMENT: Dr. Caleb John has been consulted from cardiology point of view. There is not any arrhythmia going on to explain the syncopal episode. We are going to order orthostatic blood pressure to see if she is orthostatic to explain the syncopal episode. Dr. Gianna Joe is going to be consulted from the neurology point of view. I am going to order orthostatic blood pressure also. Resume home medication. Continue normal saline at 75 mL an hour, Zofran 4 mg IV q.4 h. as needed, aspirin 81 mg daily, Aricept 5 mg at bedtime, Provigil 100 mg in the morning, Pepcid 20 mg twice a day, gabapentin 100 mg at bedtime, Requip 0.5 mg at bedtime, Depakote 500 mg twice a day, Sinemet 1 tablet twice a day which is 25 per 100 mg, midodrine 5 mg daily, and Remeron 30 mg at bedtime. As I said, she going to continue telemetry. We are going to do orthostatic blood pressure to make sure she is not orthostatic. Workup is in progress. Dr. Garsia has been consulted from the urology point of view because of the urinary retention. Urine has been sent for culture. The patient will remain in the hospital until we narrow down the diagnosis to find out the reason why she had a syncopal episode. Physical therapy is going to be ordered also. She has a PEG tube which she uses only when she does not eat and only for medications because sometimes she refuses to take the medications. Job#: [id number]
--- NOTE | 2018-08-17 15:11 | Consultation ---
DATE OF CONSULTATION: August 17, [address] Sandy. This 83-year-old patient presented to the hospital after a syncopal spell. The patient has severe Alzheimer's disease and dementia and I was unable to give any personnel information with regard to the incident preceding or afterwards; however, the patient's sitter stated that she frequently has these spells, usually right after breakfast and at the time when she goes to the restroom. The patient had been admitted in the past with similar episodes and the most significant finding was that she is suffering from postural hypotension. The patient apparently takes midodrine 2.5 mg daily in the morning. The patient's evaluation in the emergency room revealed that there was some slight elevation of the creatinine and because of leg edema, venous ultrasound was also ordered. There was also some elevation of the D-dimer. CT scan of the brain does not show any acute brain injury. There was some evidence of dilated ventricle and some calcification of the carotid artery in the cavernous region of the brain. The chest x-ray was unremarkable. Also the patient's electrocardiogram was normal. There was some elevation of the troponin level on admission; however, followup cardiac enzymes were normal. PAST MEDICAL HISTORY: Reveals that she had cholecystectomy, hysterectomy, arthroscopy of the left knee. She has a long history of the GERD, hiatal hernia, history of stricture with dilatation, gastric ulcer disease, and irritable bowel syndrome. She also said that she had a history of repair of hiatal hernia. Patient also has hyperlipidemia. She underwent cardiac catheterization in 2016 which showed mild calcific coronary artery disease. The patient also has severe degenerative joint disease with bilateral carpal tunnel syndrome and cervical arthritis as documented on previous studies. ALLERGIES: LIPITOR. SOCIAL HISTORY: Negative. FAMILY HISTORY: Noncontributory. However, there is a history of hyperlipidemia and the patient's father of a CVA at the age of 81. REVIEW OF SYSTEMS: The remainder of the system review at the time visit indicated the patient denies any chest pain or headache or abdominal pain while she is attended in the hospital and sitting up in her chair being quite pleasant. The patient's blood pressure is 95/60. Carotid pulses are present. The chest is clear to auscultation. Cardiovascular system reveals a normal apical impulse. The rhythm is regular, 1st and 2nd are normal. There is no S3. There are no murmurs. Abdomen is soft. There is no tenderness or organomegaly. Extremities show 1+ edema. Homans' sign is negative. Pedal pulses are present. Neurologic examination does not reveal localizing defect. IMPRESSIONS 1. Syncopal spell. 2. Hypotension and history of postural hypotension. 3. Hyperlipidemia. 4. Mild coronary artery disease. On review of the patient's laboratory data, it was noted there was some elevation of the patient's creatinine on admission; however, it was now normal on followup with 0.96. Also there was some elevation of H and H and evidence of some mild anemia with a hemoglobin of 10.1 and hematocrit of 31.2. There is some suspicion that there may be also some element of dehydration considering the change of the laboratory data; however, actual GI bleeding cannot be absolutely excluded with the drop in the H and H; however, the ultrasound of the lower extremities on the venous side does not show any evidence of deep vein thrombosis, and I have discussed with Dr. Sandy that I do not find any acute cardiovascular abnormality to explain the syncopal spell. We have to postulate the patient is still suffering from postural hypotension and I would recommend to increase the midodrine to 5 mg to be taken as soon as she is getting up and before breakfast. With regard to the patient's cardiac status, patient could be discharged at the discretion of Dr. Sandy. Job#: [id number] JOSE CARLOS
[2018-08-17] MEDS ORDERED: IOPAMIDOL 370 MG/ML 200 ML INFUS..BTL INJ ONE (15:17)
[2018-08-17] MEDS ORDERED: SODIUM CHLORIDE 0.9% 100 ML 100 ML ONE (15:17)
--- NOTE | 2018-08-17 16:27 | Diagnostic Imaging Report ---
EXAM: CT Chest WITH contrast, Pulmonary embolism protocol INDICATION: Elevated D Dimer COMPARISON: Chest radiograph 08/16/2018. TECHNIQUE: Chest was scanned utilizing a multidetector helical scanner from the lung apex through the level of the diaphragm after administration of IV contrast. Thin section reconstructions were obtained with special concentration on the pulmonary arteries. Coronal and sagittal reformations were obtained. Pulmonary embolism protocol was performed. IV CONTRAST: 100 mL of Isovue 370 RADIATION DOSE: Total DLP: 466.9 mGy*cm COMPLICATIONS: None FINDINGS: LINES/ TUBES: None. PULMONARY ARTERIES: There is segmental/subsegmental pulmonary embolism in the left lower pulmonary artery on series 108, image 52. The main pulmonary artery measures 2.5 cm. LUNGS AND AIRWAYS: The central airways are patent. Biapical pleural-parenchymal opacity. Linear subsegmental atelectasis in the left lower lobe. Mild mosaic attenuation in the upper lobes, which may reflect air trapping. PLEURA: The pleural spaces are clear. HEART AND MEDIASTINUM: The thyroid gland is not well evaluated secondary to streak artifact. No mediastinal, hilar or axillary lymphadenopathy. The heart is normal in size.. There is no pericardial effusion. Coronary atherosclerosis. Scattered thoracic aortic calcifications. Mild flattening of the interventricular septum. The RV/LV ratio is approximately 1. UPPER ABDOMEN: Limited non-contrast views of the upper abdomen show no abnormality within the visualized liver, spleen, pancreas, or kidneys. The adrenal glands are normal. Status post cholecystectomy. Atherosclerotic calcifications of the abdominal aorta. BONES/SOFT TISSUES: No acute bony findings. IMPRESSION: Segmental/subsegmental pulmonary emboli in the left lower lobe pulmonary artery branches. Mild flattening of the interventricular septum with possible CT findings of right heart strain, although there is no evidence of main or lobar pulmonary emboli. Suggest cardiac echo for further evaluation. Above findings were discussed with [facility] VIELKA Araiza, who understood the communication and will also contact referring physician. Findings were discussed on 07/18/2018 at 1620 PM. Signed by: Dr. Arleth Carrillo MD on 08/17/2018 4:24 PM
[2018-08-17 16:40] VITALS: BP 119/56
[2018-08-17] MEDS ORDERED: RIVAROXABAN 15 MG TABLET PO SCH (17:00)
[2018-08-17 20:00] VITALS: BP 131/59
[2018-08-17 20:10] VITALS: BP 131/59
--- NOTE | 2018-08-17 20:30 | NUR ---
ASSESSMENT DONE.NO RESP.DISTRESS.BED LOCKED AND IN LOWEST POSITION.NO BOWEL MOVEMENT.NO PAIN VOICED.PHONE AND CALL LIGHT WITHIN REACH. IV IS LEAKING.NEW IV STARTED @ R.FA#22.TALENT ACQUISITION SOURCER AT BED SIDE .INSTRUCTED TO CALL FOR ASSISTANCE NEEDED.
[2018-08-17] MEDS: ROPINIROLE HCL 0.25 MG TAB PEG SCH (22:00)
[2018-08-17] MEDS: DONEPEZIL HCL 5 MG TAB PEG SCH (22:00)
[2018-08-17] MEDS: MIRTAZAPINE 15 MG TAB PEG SCH (22:00)
[2018-08-17] MEDS: APIXABAN 5 MG TABLET PO SCH (23:00)
[2018-08-18] VITALS (8 sets, daily range): BP systolic 105–176; BP diastolic 53–74
[2018-08-18] MEDS: DOCUSATE SODIUM 100 MG CAP PEG SCH ×2 (01:00→12:30)
--- NOTE | 2018-08-18 07:00 | NUR ---
REPORT GIVEN TO THE ON COMING RN.WALKING ROUNDS DONE.STABLE CONDITION.
[2018-08-18] MEDS ORDERED: CARBIDOPA/LEVODOPA 25/100 TAB PEG SCH (09:00)
[2018-08-18] MEDS: CARBIDOPA/LEVODOPA 25/100 TAB PEG SCH ×3 (09:00→17:11)
[2018-08-18] MEDS: MIDODRINE 2.5 MG TAB PEG SCH (09:00)
[2018-08-18] MEDS: MODAFINIL 100 MG TAB PEG SCH ×2 (09:00→09:40)
[2018-08-18] MEDS: SODIUM CHLORIDE 0.9% 1000ML 1,000 ML IV SCH (09:04)
[2018-08-18] MEDS: FAMOTIDINE 20 MG TAB PEG SCH ×3 (09:20→17:11)
[2018-08-18] MEDS: DEPAKENE 500MG/10ML UDC PEG SCH ×2 (09:20→16:55)
[2018-08-18] MEDS: ASPIRIN 81 MG CHEW TAB PEG SCH (09:20)
[2018-08-18] MEDS: GABAPENTIN 100 MG CAP PEG SCH ×2 (09:20→21:38)
[2018-08-18] MEDS: LORATADINE 10 MG TAB PO SCH (09:21)
[2018-08-18] MEDS: APIXABAN 5 MG TABLET PO SCH ×3 (09:21→17:11)
--- NOTE | 2018-08-18 15:51 | Progress Note ---
DATE: INTERNAL MEDICINE PROGRESS NOTE SUBJECTIVE: Patient is sleeping right now. PHYSICAL EXAM VITAL SIGNS: Blood pressure is 176/67, temperature 97.2, heart rate 98 per minute, respiratory rate is 16 per minute, ox saturation 95%. HEART: Regular rate and rhythm. Normal S1, S2 sounds. LUNGS: Clear bilaterally. ABDOMEN: Soft. EXTREMITIES: Show no evidence of cyanosis, edema, or trauma. CT of the chest showed very small subsegmental pulmonary artery embolism. Venous Doppler is negative for DVT according to Dr. Ellis, cardiology on the case. On the BMP; sodium 139, potassium 3.7, chloride 102, CO2 of 25, BUN 15, creatinine 0.86, glucose 91. On CBC; white blood count 8.21, hemoglobin 10.1, hematocrit 31.2, platelet count 292,000. PT 12.5, PTT 25.7, INR 0.86. AST 24, ALT 6, total bilirubin 0.5, alkaline phosphatase 74. FINAL IMPRESSION 1. Episode of syncope. 2. Parkinson disease. 3. Dementia. 4. Pulmonary embolism. 5. Orthostatic hypotension. 6. History of hypertension PLAN OF TREATMENT: Continue IV normal saline 75 mL an hour. Zofran 4 mg IV every q.4 hours as needed, aspirin 81 mg daily, Aricept 5 mg daily, Provigil 100 mg in the morning, Pepcid 20 mg twice a day. Continue gabapentin 100 mg at bedtime. Requip 0.5 mg at bedtime, valproic acid 5 mg twice a day, Claritin 10 mg daily, gabapentin 100 mg in the morning, Sinemet 1 tablet twice a day 25 mg in the morning. Eliquis has been started 5 mg twice a day because the daughter refused Xarelto. He is not reliable to take Coumadin because PT and INR. Initial the patient was found to have refuses blood work and he started lower dose of Eliquis because of age and dementia. Continue midodrine 5 mg daily. Remained on 30 mg of , Colace 100 mg twice a day. Continue physical and occupational therapy. Continue orthostatic blood pressure measurements. Job#: [id number] [id number]
--- NOTE | 2018-08-18 19:05 | NUR ---
HANDOFF REPORT TO ONCOMING NURSE SLAVA MADE AWARE PATIENT'S HAS ORDERS FOR ORTHOSTATIC VITAL SIGNS, VERBALIZED UNDERSTANDING.
--- NOTE | 2018-08-18 20:10 | NUR ---
ASSESSMENT DONE.NO RESP.DISTRESS.NO PAIN VOICED.AMBULATES WITH ASSISTANCE.SCIENCE WRITER AT BED SIDE.ORTHOSTATIC VITAL SIGNS CHECKED.SITTING BP 136/74 STANDING 132/70 SUPINE POSITION 128/76.BED LOCKED AND IN LOWEST POSITION.INSTRUCTED TO CALL FOR ASSISTANCE NEEDED.
[2018-08-18] MEDS: MIRTAZAPINE 15 MG TAB PEG SCH (21:38)
[2018-08-18] MEDS: DOCUSATE SODIUM LIQD 100 MG/10 ML UDC PEG SCH (21:38)
[2018-08-18] MEDS: ROPINIROLE HCL 0.25 MG TAB PEG SCH (21:38)
[2018-08-18] MEDS: DONEPEZIL HCL 5 MG TAB PEG SCH (21:38)
[2018-08-19] VITALS (7 sets, daily range): BP systolic 114–135; BP diastolic 56–79
--- NOTE | 2018-08-19 05:00 | NUR ---
ORTHOSTATIC V/S CHECKED.SLEPT WELL DURING NIGHT.
--- NOTE | 2018-08-19 06:50 | NUR ---
REPORT GIVEN TO THE ONCOMING RN.WALKING ROUNDS DONE.STABLE CONDITION.
[2018-08-19] MEDS: GABAPENTIN 100 MG CAP PEG SCH (10:15)
[2018-08-19] MEDS: MODAFINIL 100 MG TAB PEG SCH ×2 (10:15)
[2018-08-19] MEDS: DOCUSATE SODIUM LIQD 100 MG/10 ML UDC PEG SCH (10:15)
[2018-08-19] MEDS: APIXABAN 5 MG TABLET PO SCH (10:15)
[2018-08-19] MEDS: CARBIDOPA/LEVODOPA 25/100 TAB PEG SCH (10:15)
[2018-08-19] MEDS: FAMOTIDINE 20 MG TAB PEG SCH (10:15)
[2018-08-19] MEDS: MIDODRINE 2.5 MG TAB PEG SCH (10:15)
[2018-08-19] MEDS: LORATADINE 10 MG TAB PO SCH (10:15)
[2018-08-19] MEDS: ASPIRIN 81 MG CHEW TAB PEG SCH (10:15)
--- NOTE | 2018-08-19 12:39 | Discharge Summary ---
TENTATIVE DISCHARGE SUMMARY HISTORY/HOSPITAL COURSE: An 83-year-old female with past medical history positive for severe dementia, history of Parkinson disease, history of neuropathy, history of restless legs syndrome. Patient came here with a fainting spell that she got in the restroom. She does not have any orthostatic changes in the blood pressure. Dr. Joe saw her from the neurology point of view. She thinks it is very low probability she has seizures, but she is going to do an EEG for 72 hours as an outpatient to see if those episodes are due to any type of seizure activity. PHYSICAL EXAMINATION HEART: Shows regular rhythm, normal S1 and S2 sounds. LUNGS: Clear bilaterally. ABDOMEN: Soft. EXTREMITIES: Show no evidence of cyanosis, edema or trauma. LAB: BMP: Sodium 139, potassium 3.7, chloride 102, CO2 25, BUN 15, creatinine 0.96, glucose 91. On the CBC: White blood count 8.21, hemoglobin 10.1, hematocrit 31.2, platelet count 292,000. PT 12.5, INR 0.86, PTT is 25.7. AST 24, ALT 6, total bilirubin 0.5, alkaline phosphatase 74. FINAL IMPRESSION 1. Episode of syncope. 2. Severe dementia. 3. Parkinson disease. 4. Neuropathy. 5. Restless legs syndrome. 6. Recently diagnosed with pulmonary embolism. PLAN OF TREATMENT: Continue aspirin 81 mg daily. Aricept 5 mg at bedtime. Gabapentin 100 mg at bedtime. Requip 0.5 mg at bedtime. Sinemet 1 tablet __daily. Colace 100 mg twice a day. Gabapentin 100 mg in the morning. Sinemet 1 tablet __twice a day. Provigil 100 mg __daily. Valproic acid 250 mg twice a day. Midodrine 5 mg daily. Remeron 30 mg at bedtime. Claritin 10 mg daily. Provigil 100 mg __in the morning. Pepcid 20 mg twice a day. Eliquis 5 mg twice a day. Tentative discharge tomorrow. GABBY CYR MD Job#: [id number]
--- NOTE | 2018-08-19 12:40 | NUR ---
henry dc'd as per ordered, 10cc of clear fluid removed from port to deflate bulb, henry removed using clean technique, pt tolerated well, 300cc of yellow urine removed from bag, pt dtv [phone]
--- NOTE | 2018-08-19 12:50 | NUR ---
spoke with dr hansen re: caregiver states pt is coughing and spitting up fluid into mouth then swallowing it,no vomiting noted, residual checked pt has 60mls of fluid noted, informed md of residulal no further orders at this time, pt takes miralax at home, miralax ordered and will give for bm
--- NOTE | 2018-08-19 13:01 | NUR ---
PT IS 3 DAY OBSERVATION ORDERS FOR DC TODAY FROM DR CYR THEN DR CYR CANCELLED DISCHARGE PER PT'S PROVIDERS REQUEST , KREE BECAUSE FAMILY IS OUT OF TOWN CM CALLED DR CYR TO EXPLAIN PT IS 3 DAY OBS AND SHOULD NOT STAY IN HOSPITAL FOR SOCIAL ISSUES HE AGREES AND STATES PT IS MEDICALLY READY FOR DISCHARGE ORDERS TO DC HOME TODAY WITH [facility] (PT CURRENTLY ON THEIR SERVICE) ORDERS TO DC LUCAS JAMILA VALENZUELA CALLED AND SPOKE WITH PT'S DTR VALENTIN DA SILVA, WHO CONFIRMS SHE IS OUT OF TOWN HOWEVER THE EVENING PROVIDER WHO COMES IN AT 6PM HAS A HUERTA TO THE HOUSE AND CAN COME PICK HER UP FROM HOSPITAL AND TAKE HER HOME CHOICE LETTER TAKEN OVER PHONE FROM DTR VALENTIN FOR [facility] BIANCA CALLED AND SPOKE WITH BEBO AT [facility] AND FAXED ORDERS; CONFIRMATION REC'D PH [phone] FAX [phone] PLAN IS TO DISCHARGE HOME AFTER 6 TODAY WITH PROVIDER SHAYY TO BE DC'D AND POST VOID RESIDUALS AFTER PT VOIDS
--- NOTE | 2018-08-19 13:26 | NUR ---
pt ambulated with physical therapy assistance to restroom, pt had bm and voided, post void residual is 33cc of urine in bladder noted. will continue to monitor
[2018-08-19 14:55] LABS: BASOPHILS % 0.3 % (0.0-1.0); EOSINOPHILS # (AUTO) 0.2 (0.0-0.4); HEMATOCRIT 35.7 % (34.2-44.1); HEMOGLOBIN 11.6 g/dL (12.0-16.0); LYMPHOCYTES # (AUTO) 1.2 (1.0-3.2); LYMPHOCYTES % 15.1 % (18.0-39.1); MEAN CORPUSCULAR HEMOGLOBIN 33.1 pg (28-32); MEAN CORPUSCULAR HGB CONC 32.5 g/dL (31-35); MONOCYTES # (AUTO) 0.9 (0.2-0.8); MONOCYTES % 10.8 % (4.4-11.3); NEUTROPHILS # (AUTO) 5.6 (2.1-6.9); NEUTROPHILS % 71.4 % (38.7-80.0); PLATELET COUNT 272 x10e3/uL (140-360); RED CELL DISTRIBUTION WIDTH 14.8 % (11.7-14.4)
[2018-08-19] MEDS ORDERED: VALPROATE 250MG/5ML ORAL LIQ 5ml PEG SCH (17:00)
--- NOTE | 2018-08-19 17:20 | NUR ---
spoke with dr hansen re: family concerns of residual, peg tube residual checked 5cc of fluid noted, md to call prescriptions in to [facility] [phone].
[2018-08-20] MEDS ORDERED: POLYETHYLENE GLYCOL 3350 17 GM PACK PO SCH (09:00)
== END 2018-08-19 17:58 | disposition home or self-care (01) ==
LOC: ER 11:26 → ERHOLD 17:04 → MED/SURG 19:20
PROVIDERS: ADMIT Internal Medicine; ATTEND Internal Medicine
DX: R55 Syncope and collapse (principal); G20 Parkinson's disease; F02.80 Dementia in other diseases classified elsewhere, unspecified severity, without behavioral disturbance, psychotic disturbance, mood disturbance, and anxiety; Z88.5 Allergy status to narcotic agent; R33.9 Retention of urine, unspecified; K21.9 Gastro-esophageal reflux disease without esophagitis; K44.9 Diaphragmatic hernia without obstruction or gangrene; E78.5 Hyperlipidemia, unspecified; K58.9 Irritable bowel syndrome, unspecified; I25.10 Atherosclerotic heart disease of native coronary artery without angina pectoris; M19.90 Unspecified osteoarthritis, unspecified site; G56.03 Carpal tunnel syndrome, bilateral upper limbs; I26.99 Other pulmonary embolism without acute cor pulmonale; I10 Essential (primary) hypertension; R31.29 Other microscopic hematuria; R35.1 Nocturia; D64.9 Anemia, unspecified; Z87.440 Personal history of urinary (tract) infections; G25.81 Restless legs syndrome
CPT/HCPCS: 36415 ×3; 70450; 71045; 71260; 80048; 80053; 80164; 81001 ×2; 82550 ×2; 82553 ×2; 82607; 82746; 83605; 83690; 83735; 83880; 84443; 84484 ×2; 85025 ×3; 85379; 85610; 85730; 86850; 86900; 87040; 87086 ×2; 87400; 93005; 93306; 93970; 97116; 97161; 97530; 99284; G0378 ×4; G8978; G8979; J7030 ×2; Q9967

== ENCOUNTER 2018-08-20 10:05 | Inpatient (IN) | payer MEDICARE, OTHER ==
[~2018-08-20] VITALS: Ht 162.6 cm; Wt 67.1 kg
[~2018-08-20 10:05] MED LIST changes: +CARBIDOPA-LEVO1 EAC1 PEG; +CHILDREN'S CLARI5 MG PO; +MIRTAZAPINE30 MG PEG; +PROVIGIL100 MG PEG; +ROPINIROLE HC0.25 MG PEG; +SINEMET 25-1001 EACH PEG; +VALPROIC A250 MG/5 M PEG
[2018-08-20] MEDS ORDERED: PANTOPRAZOLE 40 MG 10ML VIAL IV STA (11:20)
[2018-08-20] MEDS ORDERED: ONDANSETRON HCL INJ 2 MG/ML VIAL IV STA (11:20)
[2018-08-20] MEDS ORDERED: SODIUM CHLORIDE 0.9% 500ML 500 ML IV ONE (11:30)
[2018-08-20 11:39] LABS: BASOPHILS % 0.4 % (0.0-1.0); EOSINOPHILS # (AUTO) 0.1 (0.0-0.4); EOSINOPHILS % 1.3 % (0.0-6.0); HEMATOCRIT 36.7 % (34.2-44.1); HEMOGLOBIN 11.8 g/dL (12.0-16.0); LYMPHOCYTES # (AUTO) 1.4 (1.0-3.2); LYMPHOCYTES % 12.5 % (18.0-39.1); MEAN CORPUSCULAR HEMOGLOBIN 32.9 pg (28-32); MEAN CORPUSCULAR HGB CONC 32.2 g/dL (31-35); MEAN CORPUSCULAR VOLUME 102.2 fL (81-99); MONOCYTES % 8.8 % (4.4-11.3); NEUTROPHILS # (AUTO) 8.3 (2.1-6.9); NEUTROPHILS % 76.6 % (38.7-80.0); PLATELET COUNT 314 x10e3/uL (140-360); RED BLOOD COUNT 3.59 x10e6/uL (3.6-5.1); RED CELL DISTRIBUTION WIDTH 14.9 % (11.7-14.4)
[2018-08-20 11:47] LABS: INR 0.92; PARTIAL THROMBOPLASTIN TIME 28.4 seconds (23.8-35.5); PROTHROMBIN TIME 13.2 seconds (11.9-14.5)
[2018-08-20 11:56] LABS: ALBUMIN 3.3 g/dL (3.5-5.0); ALBUMIN/GLOBULIN RATIO 0.8 (0.8-2.0); ANION GAP 12.7 mmol/L (8-16); CREATININE, SERUM 0.9 mg/dL (0.57-1.11); POTASSIUM 3.7 mmol/L (3.5-5.1)
[2018-08-20 12:12] LABS: CREATINE KINASE MB 0.8 ng/mL (0-5.0)
[2018-08-20 12:20] LABS: B-TYPE NATRIURETIC PEPTIDE2 < 10.0 pg/mL (0-100)
--- NOTE | 2018-08-20 12:35 | Diagnostic Imaging Report ---
Exams: Head and cervical spine CTs without IV contrast History: Unresponsive, syncope, Comparison studies: Head CT 08/16/2018 and MRIs of 01/02/2016 and 07/09/2018. Technique: Axial images were obtained from the brain and cervical spine. Coronal and sagittal images reconstructed from the axial data. Dose modulation, iterative reconstruction, and/or weight based adjustment of the mA/kV was utilized to reduce the radiation dose to as low as reasonably achievable. Radiation dose: Total DLP: 1023 mGy*cm. Estimated effective dose: DLP x 0.015 Intravenous contrast: None Findings: Head CT: Scalp: The sylvian fissure and frontal sulci are moderately prominent. Remaining sulci are mildly prominent.. Bones: No fractures, blastic or lytic lesions. Extra-axial spaces: No masses. No fluid collections. Brain sulci: Appropriate for age. Ventricles: Normal in size and configuration. No hydrocephalus. Parenchyma: No mass, hemorrhage or acute ischemia. Unchanged confluent hypodense signal changes in the periventricular white matter. Sellar/suprasellar region: No abnormalities. Craniocervical junction: The foramen magnum is patent. No Chiari one malformation. Cervical spine CT: Fractures: None. Soft tissues: No gross acute abnormalities. Atlantoaxial articulation: Intact. Alignment: Normal lordosis. No subluxations. Cervicomedullary junction: No abnormalities. The foramen magnum is patent. Vertebrae: No infection or neoplasm. Degenerative changes: Mildly degenerated partially calcified disc with loss of disc height from C2 to C5 and moderately degenerated disks at C5-C6 and at C6-C7. Prominent focal ossified posterior longitudinal ligament at C2-C3. No significant canal stenosis. Multilevel uncovertebral and facet arthrosis result in multilevel foraminal stenosis stenosis (mild/moderate on the left at C4-C5, moderate left and mild right at C5-C6, moderate left and mild right at C6-C7 and moderate left at C7-T1). Incidental findings: Mild chronic scarring at the lung apices. Chronic inflammatory changes in the left mastoids. Carotid calcifications in the carotid siphons and intradural vertebral arteries. IMPRESSION: Head CT: 1. No acute intracranial abnormalities. 2. No changes from the prior head CT of 08/16/2018. 3. Chronic periventricular white matter changes. 4. Generalized volume loss with a frontotemporal predominance. Cervical spine CT: 1. No cervical spine fracture subluxation. 2. Multilevel degenerative changes as described. 3. Please note, cannot adequately evaluate ligament, spinal cord and or vascular abnormalities on the basis of this examination. Signed by: Dr. Ac Dacosta M.D. on 08/20/2018 12:32 PM
[2018-08-20 13:49] LABS: OCCULT BLOOD STOOL POSITIVE (NEGATIVE)
[2018-08-20 13:51] LABS: BILIRUBIN,URINE NEGATIVE (NEGATIVE); CLARITY,URINE HAZY (CLEAR); COLOR,URINE YELLOW (YELLOW); KETONES,URINE TRACE (NEGATIVE); LEUKOCYTE ESTERASE ,URINE 1+ (NEGATIVE); NITRITE,URINE POSITIVE (NEGATIVE); PROTEIN,URINE DIPSTICK TRACE (NEGATIVE); URINE UROBILINOGEN 0.2 mg/dL (0.2 - 1)
[2018-08-20 14:34] LABS: BACTERIA,URINE MANY /HPF; EPITHELIAL CELLS,URINE FEW /LPF; RBC,URINE 0-5 /HPF (0-5); WBC,URINE (MAN) 21-50 /HPF (0-5)
[2018-08-20 14:59] LABS: C DIFFICILE TOXIN A&B AMP PROB **POSITIVE** (NEGATIVE)
--- NOTE | 2018-08-20 15:00 | NUR ---
BRISSA FROM LAB CALLED TO REPORT STOOL SAMPLE IS C-DIFF +. DR. LU INFORMED OF THIS. PENDING FURTHER ORDERS AT THIS TIME.
--- NOTE | 2018-08-20 15:06 | Diagnostic Imaging Report ---
PROCEDURE: CHEST SINGLE (PORTABLE) COMPARISON: None. INDICATIONS: SYNCOPE, UNRESPONSIVE FINDINGS: LUNGS: No consolidations or edema. PLEURA: No effusions or pneumothorax. HEART & MEDIASTINUM: The heart is within normal size-limits. BONES & SOFT TISSUES: No acute findings. CONCLUSION: No acute thoracic abnormality. Leobardo Madsen D.O. Dictated by: Leobardo Madsen D.O. on 08/20/2018 at 15:17 Electronically approved by: Leobardo Madsen D.O. on 08/20/2018 at 15:17
[2018-08-20] MEDS ORDERED: SODIUM CHLORIDE 0.9% 1000ML 1,000 ML IV ONE (16:15)
[2018-08-20] MEDS ORDERED: CEFTRIAXONE SOD 1 GM VIAL IV SCH (16:15)
[2018-08-20] MEDS ORDERED: ONDANSETRON HCL INJ 2 MG/ML VIAL IV PRN (16:15)
[2018-08-20] MEDS: CEFTRIAXONE SOD 1 GM/NS 50 ML 50 ML IV SCH (17:40)
[2018-08-20] MEDS: VANCOMYCIN 250MG/5ML ORAL SOLN PO SCH (18:00)
--- NOTE | 2018-08-20 18:10 | NUR ---
REDNESS NOTED TO RIGHT LABIA MAJORA, CAREGIVER FEELS THAT DIAPER MAY BE CAUSING REDNESS, PERICARE GIVEN, CAREGIVER EDUCATED ON THE USE OF SKIN BARRIER OINTMENT TO BE USED WITH DIAPERS.
[2018-08-20] MEDS ORDERED: SODIUM CHLORIDE 0.9% 1000ML 1,000 ML ONE (18:44)
--- NOTE | 2018-08-20 19:20 | NUR ---
REPORT GIVEN TO VIELKA ARRINGTON REFRIGERATOR ROOM CLERK NURSE
[2018-08-20 20:35] VITALS: BP 147/83
[2018-08-20 20:40] VITALS: BP 147/83
--- NOTE | 2018-08-20 20:45 | NUR ---
Pt admitted to room 292 via stretcher. Alert to name. Skin warm, dry. Bilateral groins redness, barrier protectant applied. Loose stools, hemorrhoids to rectum, tender to touch, moaning. 20g IV right EJ, NS @75ml/hr. 20g IV right FA, S/L. Lungs CTA. Cap refill<3 secs. Abdomen soft and nontender. PEG tube LLQ, patent. NO acute distress noted. Bed in low position and locked. Will continue to monitor.
[2018-08-20 21:32] LABS: CREATINE KINASE MB 0.9 ng/mL (0-5.0)
[2018-08-21] VITALS (8 sets, daily range): BP systolic 127–149; BP diastolic 57–96
[2018-08-21] MEDS: VANCOMYCIN 250MG/5ML ORAL SOLN PO SCH ×4 (01:00→21:26)
[2018-08-21] MEDS: CEFTRIAXONE SOD 1 GM/NS 50 ML 50 ML IV SCH ×2 (04:30→16:30)
[2018-08-21 06:04] LABS: BASOPHILS % 0.4 % (0.0-1.0); EOSINOPHILS # (AUTO) 0.3 (0.0-0.4); EOSINOPHILS % 3.4 % (0.0-6.0); HEMATOCRIT 28.5 % (34.2-44.1); LYMPHOCYTES # (AUTO) 1.8 (1.0-3.2); LYMPHOCYTES % 24.6 % (18.0-39.1); MEAN CORPUSCULAR HEMOGLOBIN 32.4 pg (28-32); MEAN CORPUSCULAR HGB CONC 31.6 g/dL (31-35); MEAN CORPUSCULAR VOLUME 102.5 fL (81-99); MONOCYTES # (AUTO) 0.8 (0.2-0.8); MONOCYTES % 10.9 % (4.4-11.3); NEUTROPHILS # (AUTO) 4.5 (2.1-6.9); NEUTROPHILS % 60.3 % (38.7-80.0); PLATELET COUNT 255 x10e3/uL (140-360); RED BLOOD COUNT 2.78 x10e6/uL (3.6-5.1)
[2018-08-21 06:28] LABS: ALANINE AMINOTRANSFERASE 12 IU/L (0-55); ALBUMIN 2.5 g/dL (3.5-5.0); ALBUMIN/GLOBULIN RATIO 0.7 (0.8-2.0); ALKALINE PHOSPHATASE 54 IU/L (40-150); ANION GAP 11.3 mmol/L (8-16); BLOOD UREA NITROGEN 15 mg/dL (7-26); BUN/CREATININE RATIO 19 (6-25); CALCIUM 8.1 mg/dL (8.4-10.2); CARBON DIOXIDE 22 mmol/L (22-29); CHLORIDE 110 mmol/L (98-107); CREATININE, SERUM 0.81 mg/dL (0.57-1.11); EST GLOMERULAR FILTRATION RATE > 60 ML/MIN (60-); GLUCOSE 89 mg/dL (74-118); POTASSIUM 3.3 mmol/L (3.5-5.1); SODIUM 140 mmol/L (136-145)
[2018-08-21] MEDS ORDERED: VITAMIN D5000 UNIT (06:48)
[2018-08-21 06:55] LABS: CREATINE KINASE MB 0.5 ng/mL (0-5.0)
--- NOTE | 2018-08-21 07:11 | NUR ---
PATIENT IN BED RESTING WITH NO RESPIRATORY DISTRESS. BRUISES TO BOTH ARMS, REDNESS TO GROIN AREA, YELLOW SOCKS AND HEEL PROTECTORS IN PLACE. FUR REMODELER AT BED SIDE. BED IN LOWER POSITION, CALL LIGHT AT REACH.
[2018-08-21] MEDS: VALPROATE 250MG/5ML ORAL LIQ 5ml PO SCH ×2 (11:33→21:26)
[2018-08-21] MEDS: CARBIDOPA/LEVODOPA 25/100 TAB PEG SCH (11:33)
[2018-08-21] MEDS: GABAPENTIN 100 MG CAP PEG SCH ×2 (11:33→21:26)
[2018-08-21] MEDS: MIDODRINE HCL 5 MG TABLET PEG SCH (11:34)
[2018-08-21] MEDS: ACETAMINOPHEN 325 MG TAB PO PRN (11:34)
--- NOTE | 2018-08-21 11:35 | NUR ---
PATIENT C/O HEADACHE, NOTIFIED. NEW ORDERS RECEIVED AND IMPLEMENTED. WILL CLOSELY MONITOR.
--- NOTE | 2018-08-21 13:31 | NUR ---
Introductory visit No family present. Pt's private healthcare assistant baseball coach at bedside. Provided hospitality and empathic listening. No need to follow up a this time. BE WONG Journeyman Power Plant Operator Spiritual Care Department O: [phone] Pager: [phone] ([phone] number calling from)
[2018-08-21] MEDS ORDERED: POTASSIUM CHLORIDE 20 MEQ TAB CR PO STA (14:57)
--- NOTE | 2018-08-21 15:31 | NUR ---
Rec'd order for [facility] eval. CM called pt daughter/POA Winnie Barber. Discussed plan, and she has agreed to [facility] eval. Telephone consent obtained, and CM Director Melyssa Alarcon also present. CM notified Vernell Colmenares, liaison for [place]. She will be here soon for eval. [address] [place], [place] [address] fax [phone] Vernell Colmenares
[2018-08-21 15:35] LABS: CREATINE KINASE MB 0.7 ng/mL (0-5.0)
--- NOTE | 2018-08-21 16:46 | History and Physical ---
HISTORY OF PRESENT ILLNESS: An 83-year-old white female with past medical history positive for severe dementia, Parkinson disease, history of recurrent syncopal episode, recently discharged two days ago from the hospital where she was initially admitted with syncopal episode. Workup was essentially unremarkable. Dr. Joe, neurology, was on the case. There was no suspicion of any syncope. Orthostatic blood pressure measurement was very difficult to do because patient was extremely agitated and violent to our staff. Patient was doing fine, and she was discharged home but suddenly the next day patient started having diarrhea. She fainted again, and she had change in mental status. The patient was sent to the emergency room where she was diagnosed with C. difficile colitis, UTI, possible sepsis also. REVIEW OF SYSTEMS: Patient is unable to give me any information because of the severe dementia. PAST MEDICAL HISTORY: Parkinson disease, history of recurrent syncope versus seizures. ALLERGIES: SHE IS ALLERGIC TO CODEINE. SOCIAL HISTORY: She does not smoke. She does not drink. PHYSICAL EXAMINATION VITAL SIGNS: Blood pressure 130/65. Temperature 97.9. Heart rate 66 per minute. Respiratory rate 18 per minute. Oxygen saturation 97%. HEART: Shows regular rhythm. Normal S1 and S2 sounds. LUNGS: Clear bilaterally. ABDOMEN: Soft. EXTREMITIES: Show no evidence of cyanosis, edema or trauma. On the BMP: Sodium 140, potassium 3.3, chloride 110, CO2 22, BUN 15, creatinine 0.81, glucose 89. On the CBC: White blood count 7.41, hemoglobin 9.0, hematocrit 28.5, platelet count 255,000. PT 13.2, INR 0.92, PTT 28.4. AST 17, ALT 12, total bilirubin 0.2, alkaline phosphatase 54. FINAL IMPRESSION 1. Possible sepsis secondary to urinary tract infection. 2. Clostridium difficile colitis. 3. Syncope. 4. Anemia. 5. Parkinson disease. 6. Hypokalemia. 7. Severe dementia. 8. Restless legs syndrome. PLAN OF TREATMENT: Continue Rocephin 2 g IV twice a day until we get the final report on the blood and urine culture. Continue vancomycin 250 mg by PEG tube q.6 hours. Continue contact isolation because of the C. difficile. Continue Zofran 4 mg IV q.4 hours as needed. Sinemet 1 tablet daily. Gabapentin 100 mg in the morning. Midodrine 5 mg daily. Requip 0.5 mg at bedtime. Aricept 5 mg at bedtime. Valproic acid 250 mg twice a day. Gabapentin 100 mg at bedtime. Remeron 30 mg at bedtime. Tentative possible transfer to [facility] because of the C. difficile colitis, possible sepsis, UTI, and recurrent admission to the hospital. Potassium has been replaced. We are going to give her some hemorrhoid cream also. Will check potassium and magnesium level tomorrow. Job#: [id number]
[2018-08-21] MEDS ORDERED: NON-FORMULARY MEDICATION (Ranitidine Hcl 150 MG) PEG SCH ×2 (17:00)
[2018-08-21] MEDS ORDERED: VALPROATE SODIUM PEG SCH (17:00)
--- NOTE | 2018-08-21 17:00 | NUR ---
PATIENT C/O HEMORRHOIDS, NOTIFIED, NEW ORDER RECEIVED AND IMPLEMENTED. BED IN LOWER POSITION, CALL LIGHT AT REACH.
[2018-08-21] MEDS ORDERED: SODIUM CHLORIDE 0.9% 250ML 250 ML ONE (17:04)
--- NOTE | 2018-08-21 17:45 | Consultation ---
DATE OF CONSULTATION: REASON FOR CONSULTATION: C. diff colitis and sepsis. HISTORY OF PRESENT ILLNESS: This patient is an 83-year-old white female with history of severe dementia, Parkinson's disease, and syncopal episode. She was recently in the hospital with C. diff. According to her caregiver, the patient was discharged home. According to her, she was having diarrhea. The patient comes in because she almost passed out. She was not doing well. Patient was admitted and started on antibiotic. She is doing much better. Apparently, she had just one loose stool today. Patient does not really provide any meaningful information. PAST MEDICAL HISTORY: As above. PAST SURGICAL HISTORY: As above. ALLERGIES: NKA. SOCIAL HISTORY: There is no smoking, drug abuse, or alcohol abuse. FAMILY HISTORY: Unremarkable. LABORATORY DATA: Reviewed. Blood cultures are showing some growth, but we do not know what it is. The urine is showing gram-negative rods. Her white count is 10.8, hemoglobin 11.8, and platelets 318. Sodium 140, potassium 3.3, and creatinine 0.8. MEDICATIONS: She is on vancomycin p.o., acetaminophen, and Neurontin. PHYSICAL EXAMINATION GENERAL: She is alert, confused, does not seem in acute distress. VITAL SIGNS: No fever. HEENT: She does not appear icteric. NECK: Supple. CHEST: Clear. COR: S1 and S2. No murmur. ABDOMEN: Soft. Bowel sounds present. No tenderness. EXTREMITIES: No edema. IMPRESSION 1. Sepsis on admission, bacteremia. I am not so sure what it is yet. Agree with Rocephin 1 g q.12. Clinically, she seems to be better. 2. History of Clostridium diff. Agree with oral vancomycin and no diarrhea so far. 3. Dementia. 4. Anemia. We will follow with you. Job#: [id number] GABI
[2018-08-21] MEDS: FAMOTIDINE 20 MG TAB PEG SCH (17:55)
[2018-08-21] MEDS: HYDROCORTISONE ACETATE 25 MG/SUPP.RECT SUPP RC SCH (17:59)
[2018-08-21] MEDS ORDERED: NON-FORMULARY MEDICATION (Mirtazapine 30 MG) PEG SCH (21:00)
--- NOTE | 2018-08-21 21:14 | NUR ---
RECEIVED PT IN BED AOX3 .NO ACUTE DISTRESS NOTED BRUISES TO THE HANDS DENIES PAIN .COMPRESSOR REPAIRER TO THE BEDSIDE .CALL LIGHT WITH IN REACH .
[2018-08-21] MEDS: DONEPEZIL HCL 5 MG TAB PEG SCH (21:26)
[2018-08-21] MEDS: ROPINIROLE HCL 0.25 MG TAB PEG SCH (21:26)
[2018-08-21] MEDS: MIRTAZAPINE 15 MG TAB PEG SCH (21:26)
[2018-08-22] VITALS (7 sets, daily range): BP systolic 120–174; BP diastolic 62–80
[2018-08-22] MEDS: CEFTRIAXONE SOD 1 GM/NS 50 ML 50 ML IV SCH (04:12)
[2018-08-22] MEDS: VANCOMYCIN 250MG/5ML ORAL SOLN PO SCH ×4 (06:00→18:09)
--- NOTE | 2018-08-22 06:28 | NUR ---
T RESTING .NO ACUTE DISTRESS NOTED .CALL LIGHT WITH IN REACH PROVIDER AT THE SIDE OF THE BED
[2018-08-22 06:40] LABS: ANION GAP 15.5 mmol/L (8-16); BLOOD UREA NITROGEN 13 mg/dL (7-26); BUN/CREATININE RATIO 17 (6-25); CALCIUM 8.8 mg/dL (8.4-10.2); CARBON DIOXIDE 19 mmol/L (22-29); CHLORIDE 108 mmol/L (98-107); CREATININE, SERUM 0.75 mg/dL (0.57-1.11); EST GLOMERULAR FILTRATION RATE > 60 ML/MIN (60-); GLUCOSE 85 mg/dL (74-118); POTASSIUM 3.5 mmol/L (3.5-5.1); SODIUM 139 mmol/L (136-145)
--- NOTE | 2018-08-22 07:13 | NUR ---
PATIENT IN BED WITH HEAD OF BED ELEVATED WATCHING TV, NO RESPIRATORY DISTRESS OBSERVED. DENIED PAIN AT THIS TIME. BED IN LOWER POSITION, CALL LIGHT AT REACH.
[2018-08-22] MEDS ORDERED: CARBIDOPA/LEVODOPA 25/100 TAB PEG SCH (09:00)
[2018-08-22] MEDS ORDERED: MIDODRINE 2.5 MG TAB PEG SCH (09:00)
[2018-08-22] MEDS: GABAPENTIN 100 MG CAP PEG SCH ×2 (09:28→22:38)
[2018-08-22] MEDS: HYDROCORTISONE ACETATE 25 MG/SUPP.RECT SUPP RC SCH ×2 (09:28→17:38)
[2018-08-22] MEDS: FAMOTIDINE 20 MG TAB PEG SCH ×2 (09:28→17:38)
[2018-08-22] MEDS: VALPROATE 250MG/5ML ORAL LIQ 5ml PO SCH ×2 (09:28→22:38)
[2018-08-22] MEDS: CARBIDOPA/LEVODOPA 25/100 TAB PEG SCH (09:28)
[2018-08-22] MEDS: MIDODRINE HCL 5 MG TABLET PEG SCH (09:28)
--- NOTE | 2018-08-22 12:20 | NUR ---
PATIENT OUT OF BED TO RECLINING CHAIR. ALL PERSONAL ITEMS CLOSE TO PATIENT, DICE MANAGER AT BED SIDE. CALL LIGHT AT EASY REACH.
--- NOTE | 2018-08-22 16:07 | Progress Note ---
DATE: INTERNAL MEDICINE PROGRESS NOTE SUBJECTIVE: The patient today. PHYSICAL EXAM VITAL SIGNS: Blood pressure 174/80, temperature 97.8, heart rate 71 per minute, respiratory rate 18 per minute, and oxygen saturation 96%. HEART: Shows regular rhythm. Normal S1, S2 sounds. LUNGS: Clear bilaterally. ABDOMEN: Soft. LAB DATA: On the BMP, sodium 139, potassium 3.5, chloride 108, CO2 19, BUN 13, creatinine 0.75, and glucose 85. On the CBC; white blood count 7.41, hemoglobin 9.0, hematocrit 28.5, ands platelet count of 255,000. PT 13.2, INR 0.92, PTT 28.4. AST 17, ALT 12, total bilirubin 0.2, alkaline phosphatase 54. FINAL IMPRESSION 1. Clostridium difficile colitis. 2. Extended-Spectrum Beta-Lactamase urinary tract infection. 3. Anemia of chronic disease. 4. Parkinson disease. 5. Status post syncope. 6. Severe dementia. 7. Bacteremia. PLAN OF TREATMENT: Continue vancomycin 125 mg q.6 hours, Zofran 4 mg IV q.4 hours as needed, Sinemet 1 tablet daily. Tylenol 650 mg p.o. q.6 hours as needed for pain or fever, Requip 0.5 mg at bedtime, Pepcid 20 mg twice a day, Aricept 5 mg daily, valproic acid 250 mg twice a day, hydrocortisone acetate 25 mg twice a day, gabapentin 100 mg daily, Remeron 30 mg at bedtime, gabapentin 800 mg in the morning, midodrine 5 mg daily. is on the case for infectious diseases and Dr. King Agarwal also for gastroenterology because of the occult stool guaiac positive. We are going to be waiting for the blood and urine culture report. Job#: [id number] [id number]
--- NOTE | 2018-08-22 16:40 | NUR ---
PATIENT TRANSFERRED FROM RECLINING CHAIR TO BED. WARM BLANKET PROVIDED, CALL LIGHT AT REACH. CASHIER AT BED SIDE.
[2018-08-22] MEDS: PIPER-TAZ 3.375 GM 50 ML IV SCH (18:09)
[2018-08-22] MEDS: MIRTAZAPINE 15 MG TAB PEG SCH (22:38)
[2018-08-22] MEDS: DONEPEZIL HCL 5 MG TAB PEG SCH (22:38)
[2018-08-22] MEDS: ROPINIROLE HCL 0.25 MG TAB PEG SCH (22:38)
[2018-08-23] VITALS (7 sets, daily range): BP systolic 91–155; BP diastolic 54–74
--- NOTE | 2018-08-23 05:26 | NUR ---
Patient laying in bed with HOB slightly elevated. confused. Bed at low position and locked. Private caregiver at the bedside. Call light within reach and reminded patient to utilize when assistance is needed. No SOB noted. No acute distress noted. Patient reports of no pain at this time. Patient in stable condition and will continue to monitor.
[2018-08-23] MEDS: PIPER-TAZ 3.375 GM 50 ML IV SCH ×4 (06:58→18:12)
[2018-08-23] MEDS: VANCOMYCIN 250MG/5ML ORAL SOLN PO SCH ×4 (06:58→18:12)
--- NOTE | 2018-08-23 07:10 | NUR ---
PATIENT IN BED RESTING WITH NO S/S OF DISCOMFORT. ADMINISTRATIVE AND PROGRAM SPECIALIST AT BED SIDE, CALL LIGHT AT REACH.
[2018-08-23] MEDS: ACETAMINOPHEN 325 MG TAB PO PRN (08:15)
[2018-08-23] MEDS: MIDODRINE HCL 5 MG TABLET PEG SCH (09:39)
[2018-08-23] MEDS: HYDROCORTISONE ACETATE 25 MG/SUPP.RECT SUPP RC SCH ×2 (09:39→17:00)
[2018-08-23] MEDS: GABAPENTIN 100 MG CAP PEG SCH ×2 (09:39→20:10)
[2018-08-23] MEDS: CARBIDOPA/LEVODOPA 25/100 TAB PEG SCH (09:39)
[2018-08-23] MEDS: FAMOTIDINE 20 MG TAB PEG SCH ×2 (09:39→17:00)
[2018-08-23] MEDS: VALPROATE 250MG/5ML ORAL LIQ 5ml PO SCH ×2 (09:39→20:10)
--- NOTE | 2018-08-23 14:57 | Progress Note ---
DATE: INTERNAL MEDICINE PROGRESS NOTE SUBJECTIVE: Patient is doing well. She is sleeping. PHYSICAL EXAM VITAL SIGNS: Blood pressure 155/67, temperature 97.3, heart rate 55 per minute, respiratory rate 18 per minute, and oxygen saturation 98%. HEART: Regular rhythm. Normal S1, S2 sounds. LUNGS: Clear bilaterally. ABDOMEN: Soft. EXTREMITIES: Show no evidence of cyanosis, edema, or trauma. LABS: On the BMP; sodium 139, potassium 3.5, chloride 108, CO2 19, BUN 13, creatinine 0.75, and glucose 85. On the CBC; white blood count is 7.41, hemoglobin 9.0, hematocrit 28.5, and platelet count 255,000. PT 13.2, INR 0.92, and PTT is 28.4. AST 17, ALT 12, total bilirubin 0.2, and alkaline phosphatase 54. FINAL IMPRESSION 1. Bacteremia versus sepsis. 2. Urinary tract infection with an extended spectrum beta-lactamases bacteria, which is an Escherichia coli, Clostridium difficile colitis. 3. Dementia. 4. Parkinson disease. 5. Status post syncopal episode. 6. . 7. Anorexia. PLAN OF TREATMENT: Continue Zosyn 3.375 g IV q.6 hours, vancomycin 125 mg q.6 hours p.o., Zofran 4 mg IV q.4 hours as needed for vomiting, Sinemet 1 tablet daily, gabapentin 100 mg in the morning, midodrine 5 mg daily, Requip 0.5 mg at bedtime, Pepcid 20 mg twice a day, Tylenol 650 mg q.6 hours as needed for pain or fever, Aricept 5 mg at bedtime, valproic acid 250 mg p.o. twice a day, hydrocortisone acetate 25 mg twice a day, gabapentin 100 mg at bedtime, Remeron 30 mg at bedtime. Tentative transfer to [facility] tomorrow. Dr. Harrell will be covering for me starting tomorrow at 7 a.m. until FridayAugust 31 at 7 a.m. Job#: [id number] GABI
--- NOTE | 2018-08-23 16:36 | NUR ---
PATIENT ASSISTED WITH DIAPER CHANGE. REPOSITIONED IN BED, FLIGHT COORDINATOR AT BED SIDE. CALL LIGHT AT REACH.
[2018-08-23] MEDS: ROPINIROLE HCL 0.25 MG TAB PEG SCH (20:10)
[2018-08-23] MEDS: MIRTAZAPINE 15 MG TAB PEG SCH (20:10)
[2018-08-23] MEDS: DONEPEZIL HCL 5 MG TAB PEG SCH (20:10)
[2018-08-24] VITALS: BP 145/70
[2018-08-24] MEDS: PIPER-TAZ 3.375 GM 50 ML IV SCH ×3 (00:43→12:28)
[2018-08-24] MEDS: VANCOMYCIN 250MG/5ML ORAL SOLN PO SCH ×3 (00:43→12:28)
[2018-08-24 04:00] VITALS: BP 120/67
--- NOTE | 2018-08-24 07:01 | NUR ---
received pt lying in bed with eyes closed, Resp even and unlabored. call light within reach. private caregiver at bedside.
[2018-08-24 08:02] VITALS: BP 119/55
[2018-08-24 08:13] VITALS: BP 119/55
[2018-08-24 08:19] VITALS: BP 119/55
--- NOTE | 2018-08-24 08:32 | Discharge Summary ---
HOSPITAL COURSE: Ms. Nelson is an 83-year-old female with history of dementia, Parkinson disease, restless legs syndrome. She came to the emergency room. She was recently discharged from the hospital and came back to the emergency room for a recurrent syncopal episode. After discharge, she started having diarrhea. She was found to have to C. difficile colitis and UTI so the plan is to transfer the patient to [place] to continue her care. On physical examination, she is sleeping. Temperature is 97.6. Blood pressure 120/67. The heart is regular rate. Lungs have poor inspiratory effort. Abdomen is soft. On the blood work, the white count is 7.41, hemoglobin 9, hematocrit 28.5, potassium 3.5. Creatinine is 0.75. C. diff came back positive. Urine culture shows E. coli. ASSESSMENT AND PLAN 1. Sepsis secondary to urinary tract infection. 2. Urinary tract infection with Escherichia coli. 3. Clostridium difficile colitis. 4. Status post syncopal episode. 5. Severe dementia. 6. Parkinson disease. 7. Restless legs syndrome. The plan at the present time is to, like I said before, if she gets accepted, transfer the patient to [place] to continue IV antibiotics. She is on Zosyn and vancomycin. Continue Zofran for vomiting, Requip for restless legs syndrome, Aricept for dementia. All this was discussed with the caregiver at bedside, and all questions were answered to satisfaction. Please see home medication reconciliation list. Job#: [id number]
[2018-08-24] MEDS: HYDROCORTISONE ACETATE 25 MG/SUPP.RECT SUPP RC SCH (09:57)
[2018-08-24] MEDS: FAMOTIDINE 20 MG TAB PEG SCH (09:57)
[2018-08-24] MEDS: MIDODRINE HCL 5 MG TABLET PEG SCH (09:57)
[2018-08-24] MEDS: CARBIDOPA/LEVODOPA 25/100 TAB PEG SCH (09:57)
[2018-08-24] MEDS: VALPROATE 250MG/5ML ORAL LIQ 5ml PO SCH (09:57)
[2018-08-24] MEDS: GABAPENTIN 100 MG CAP PEG SCH (09:57)
--- NOTE | 2018-08-24 10:39 | NUR ---
Received MOT for transfer to [facility] [address] [place], [place] [address] call report to [phone] Davis Sandy to attend Accepting admin: Bharathi Mast, [employer] MOT obtained from Vernell Colmenares, clinical liaison with [facility]. VIELKA Peñaloza informed of MOT on chart.
--- NOTE | 2018-08-24 11:35 | NUR ---
daughter Winnie notified of patient transfer to [facility] today and agreed, daughter was given choice of ambulance for transfer and states "whichever you all use is fine."
--- NOTE | 2018-08-24 11:45 | NUR ---
spoke to Elvira nurse at [facility] to give report. patient to admit to room 303. house painting instructor notified.
[2018-08-24 12:16] VITALS: BP 152/83
--- NOTE | 2018-08-24 14:55 | NUR ---
patient d/c'd via EMS stretcher accompanied by private caregiver. all personal belongings with patient and caregiver at time of d/c. transfer of care documents/MAR given to stage driver to give to receiving nurse at [facility]. covering for made aware of d/c.
== END 2018-08-24 14:54 | DRG 872 ==
LOC: ER 10:11 → ERHOLD 16:03 → MED/SURG3 20:56
PROVIDERS: ADMIT Internal Medicine; ATTEND Internal Medicine
DX: A41.9 Sepsis, unspecified organism (principal); A04.72 Enterocolitis due to Clostridium difficile, not specified as recurrent; N30.90 Cystitis, unspecified without hematuria; G20 Parkinson's disease; G25.81 Restless legs syndrome; F02.80 Dementia in other diseases classified elsewhere, unspecified severity, without behavioral disturbance, psychotic disturbance, mood disturbance, and anxiety; E87.6 Hypokalemia; D64.9 Anemia, unspecified
CPT/HCPCS: 36415; 70450; 71045; 72125; 80048; 80053; 80164; 81001; 82270; 82550; 82553; 83605; 83735; 83880; 84484; 85025; 85610; 85730; 86850; 86900; 87040; 87071; 87086; 87186; 87205; 87493; 93005; 99285; J0696; J2405; J2543; J7030; J7040; J7050

== ENCOUNTER 2018-12-08 14:36 | Observation (INO) | payer MEDICARE, OTHER ==
[~2018-12-08] VITALS: Ht 162.6 cm; Wt 67.2 kg
[~2018-12-08 14:36] MED LIST changes: +VITAMIN D5000 UNIT
--- OUTSIDE RECORDS SUMMARY | 2018-12-08 14:41 | XMS REPORT | Continuity of Care Document ---
Author Author [facility] Interface Address Unknown Phone Unavailable Problems Problem Status Onset Date Classification Date Reported Comments Source Chest pain Active 11/18/2015 Problem 08/24/2018 [facility] Altered mental status Active Problem 08/24/2018 [facility] C. difficile colitis Active Problem 08/24/2018 [facility] Diarrhea Active Problem 08/24/2018 [facility] Syncope Active Problem 08/24/2018 [facility] Syncope and collapse Active Problem 08/24/2018 [facility] UTI Active Problem 08/24/2018 [facility] Medications Medication Details Route Status Patient Instructions Ordering Provider Order Date Source Carbidopa/Levodopa (Sinemet 25-100 Mg Tablet) 1 Each Tablet, 1 Cap Peg Tube Today At 12:00PM Active 08/21/2018 [facility] Docusate Sodium (Colace) 100 Mg Cap, 100 Mg Peg Tube Every 12 Hours Active 08/21/2018 [facility] Loratadine (Children's Claritin) 5 Mg Tab.chew, 10 Mg Oral Daily Active 08/21/2018 [facility] Modafinil (Provigil) 100 Mg Tablet, 100 Mg Peg Tube Daily Active 08/21/2018 [facility] Divalproex Sodium (Depakote Sprinkle) 125 Mg Cap.sprink, 250 Mg Peg Tube Twice A Day Active 08/20/2018 [facility] Aspirin (Aspir 81) 81 Mg Tablet.dr, 81 Mg Peg Tube Daily Active 08/19/2018 [facility] Cetirizine Hcl 10 Mg Tablet, 10 Mg Oral Daily Active 08/16/2018 [facility] Divalproex Sodium 125 Mg Cap.sprink, 1 Cap Bedtime Active 08/16/2018 [facility] Mirtazapine 15 Mg Tab, 7.5 Mg Oral Bedtime Active 08/16/2018 [facility] Mv, Min #36/Iron,Carbonyl/Fa (Geritol Complete Tablet) 1 Each Tablet, 0.5 Tab Oral Bedtime Active 08/16/2018 [facility] Simvastatin 40 Mg Tablet, 40 Mg Oral Today At 9:00PM Active 08/16/2018 [facility] Gabapentin 100 Mg Capsule, Daily Active 08/25/2017 [facility] Gabapentin 300 Mg Capsule, 300 Mg Oral Bedtime Active 08/25/2017 [facility] Cyclobenzaprine Hcl 10 Mg Tablet, 5 Mg Oral As Needed Active 01/31/2017 [facility] Metoclopramide Hcl 10 Mg Tablet, 10 Mg Oral Twice A Day Active 01/31/2017 [facility] Omeprazole 20 Mg Tablet.dr, 20 Mg Oral Twice A Day Active 01/31/2017 [facility] Paroxetine Hcl 20 Mg Tablet, 10 Mg Oral Daily Active 01/31/2017 [facility] Simvastatin 40 Mg Tablet, 40 Mg Oral Today At 9:00PM Active 01/31/2017 [facility] Simvastatin 40 Mg Tablet, 40 Mg Oral Daily Active 08/27/2016 [facility] Carbidopa/Levodopa (Carbidopa-Levodopa 25-100 Tab) 1 Each Tablet Today At 9:00AM Active [facility] Cholecalciferol (Vitamin D3) (Vitamin D) 5,000 Unit Tablet Use As Directed Active weekly on [facility] Donepezil Hcl (Aricept) 5 Mg Tablet Bedtime Active [facility] Gabapentin 100 Mg Capsule Every Morning Active [facility] Midodrine Hcl 2.5 Mg Tablet Daily Active [facility] Mirtazapine 30 Mg Tablet Bedtime Active [facility] Ranitidine Hcl 150 Mg Tablet Twice A Day Active [facility] Ropinirole Hcl 0.25 Mg Tablet Bedtime Active [facility] Valproate Sodium (Valproic Acid) 250 Mg/5 Ml Solution Twice A Day Active [facility] Allergies, Adverse Reactions, Alerts Substance Category Reaction Severity Reaction type Status Date Reported Comments Source Codeine Intermediate Allergy to Substance Active 08/20/2018 [facility] Immunizations Immunization Date Given Site Status Last Updated Comments Source Results Order Name Results Value Reference Range Date Interpretation Comments Source Serum or plasma sodium measurement (moles/volume) 139 136 - 145 08/22/2018 [facility] Serum or plasma potassium measurement (moles/volume) 3.5 3.5 - 5.1 08/22/2018 [facility] Serum or plasma chloride measurement (moles/volume) 108 98 - 107 08/22/2018 [facility] Serum or plasma carbon dioxide, total measurement (moles/volume) 19 22 - 29 08/22/2018 [facility] Serum or plasma anion gap 15.5 8 - 16 08/22/2018 [facility] Serum or plasma urea nitrogen measurement (mass/volume) 13 7 - 26 08/22/2018 [facility] Serum or plasma creatinine measurement (mass/volume) 0.75 0.57 - 1.11 08/22/2018 [facility] Serum or plasma urea nitrogen/creatinine mass ratio 17 6 - 25 08/22/2018 [facility] Estimated glomerular filtration rate (GFR) determination > 60 60 08/22/2018 [facility] Glucose measurement 85 74 - 118 08/22/2018 [facility] Serum or plasma calcium measurement (mass/volume) 8.8 8.4 - 10.2 08/22/2018 [facility] Serum or plasma magnesium measurement (mass/volume) 1.7 1.3 - 2.1 08/21/2018 [facility] Serum or plasma creatine kinase measurement (enzymatic activity/volume) 45 29 - 168 08/21/2018 [facility] Serum or plasma creatine kinase MB measurement (mass/volume) 0.70 0 - 5.0 08/21/2018 [facility] Troponin I measurement by highly sensitive enzyme immunoassay 0.007 0 - 0.300 08/21/2018 [facility] Blood leukocytes automated count (number/volume) 7.41 4.8 - 10.8 08/21/2018 [facility] Blood erythrocytes automated count (number/volume) 2.78 3.6 - 5.1 08/21/2018 [facility] Blood hemoglobin measurement (moles/volume) 9.0 12.0 - 16.0 08/21/2018 [facility] Automated blood hematocrit (volume fraction) 28.5 34.2 - 44.1 08/21/2018 [facility] Automated erythrocyte mean corpuscular volume 102.5 81 - 99 08/21/2018 [facility] Automated erythrocyte mean corpuscular hemoglobin (mass per erythrocyte) 32.4 28 - 32 08/21/2018 [facility] Automated erythrocyte mean corpuscular hemoglobin concentration measurement (mass/volume) 31.6 31 - 35 08/21/2018 [facility] RDW BldCo-Rto 15.0 11.7 - 14.4 08/21/2018 [facility] Automated blood platelet count (count/volume) 255 140 - 360 08/21/2018 [facility] Automated blood segmented neutrophil count as percentage of total leukocytes 60.3 38.7 - 80.0 08/21/2018 [facility] Automated blood lymphocyte count as percentage ot total leukocytes 24.6 18.0 - 39.1 08/21/2018 [facility] Automated blood monocyte count as percentage of total leukocytes 10.9 4.4 - 11.3 08/21/2018 [facility] Automated blood eosinophil count as percentage of total leukocytes 3.4 0.0 - 6.0 08/21/2018 [facility] Automated blood basophil count as percentage of total leukocytes 0.4 0.0 - 1.0 08/21/2018 [facility] IM GRANULOCYTES % 0.4 0.0 - 1.0 08/21/2018 [facility] Automated blood neutrophil count 4.5 2.1 - 6.9 08/21/2018 [facility] Blood lymphocytes count (number/volume) 1.8 1.0 - 3.2 08/21/2018 [facility] Blood monocytes automated count (number/volume) 0.8 0.2 - 0.8 08/21/2018 [facility] Automated blood eosinophil count 0.3 0.0 - 0.4 08/21/2018 [facility] Automated blood basophil count (count/volume) 0.0 0.0 - 0.1 08/21/2018 [facility] Absolute Immature Granulocyte (auto 0.03 0 - 0.1 08/21/2018 [facility] Serum or plasma total bilirubin measurement (mass/volume) 0.2 0.2 - 1.2 08/21/2018 [facility] Aspartate Amino Transf (AST/SGOT) 17 5 - 34 08/21/2018 [facility] Serum or plasma alanine aminotransferase measurement (enzymatic activity/volume) 12 0 - 55 08/21/2018 [facility] Serum or plasma protein measurement (mass/volume) 5.9 6.5 - 8.1 08/21/2018 [facility] Serum or plasma albumin measurement (mass/volume) 2.5 3.5 - 5.0 08/21/2018 [facility] Plasma globulin measurement (mass/volume) 3.4 2.3 - 3.5 08/21/2018 [facility] Serum or plasma albumin/globulin mass ratio 0.7 0.8 - 2.0 08/21/2018 [facility] Serum or plasma alkaline phosphatase measurement (enzymatic activity/volume) 54 40 - 150 08/21/2018 [facility] Urine color determination YELLOW YELLOW 08/20/2018 [facility] Urine clarity HAZY CLEAR 08/20/2018 [facility] Specific gravity of Urine by Test strip 1.025 1.010 - 1.025 08/20/2018 [facility] Urine pH measurement by automated test strip 5 5 - 7 08/20/2018 [facility] Urine leukocyte esterase detection by dipstick 1+ NEGATIVE 08/20/2018 [facility] Urine nitrite detection POSITIVE NEGATIVE 08/20/2018 [facility] Urine protein measurement by test strip (mass/volume) TRACE NEGATIVE 08/20/2018 [facility] Urine glucose detection NEGATIVE NEGATIVE 08/20/2018 [facility] Urine ketones detection by automated test strip TRACE NEGATIVE 08/20/2018 [facility] Urine urobilinogen measurement by test strip (mass/volume) 0.2 0.2 - 1 08/20/2018 [facility] Urine total bilirubin measurement (mass/volume) NEGATIVE NEGATIVE 08/20/2018 [facility] Urine erythrocytes detection 3+ NEGATIVE 08/20/2018 [facility] Automated urine sediment leukocyte count by microscopy (number/high power field) 21-50 0 - 5 08/20/2018 [facility] Erythrocytes detection in urine sediment by light microscopy 0-5 0 - 5 08/20/2018 [facility] Bacteria detection in urine sediment by light microscopy MANY NONE 08/20/2018 [facility] Epithelial cells detection in urine sediment by light microscopy FEW NONE 08/20/2018 [facility] Stool gastrointestinal hemoglobin detection POSITIVE NEGATIVE 08/20/2018 [facility] Clostridium difficile A and B toxin assay POSITIVE NEGATIVE 08/20/2018 [facility] Serum or plasma valproate measurement (mass/volume) 57 50 - 100 08/20/2018 [facility] Prothrombin time (PT) in platelet poor plasma by coagulation assay 13.2 11.9 - 14.5 08/20/2018 [facility] INR in Platelet poor plasma by Coagulation assay 0.92 08/20/2018 [facility] Activated partial thromboplastin time (aPTT) in platelet poor plasma bycoagulation assay 28.4 23.8 - 35.5 08/20/2018 [facility] Lactic Acid Level 11.7 4.5 - 19.8 08/20/2018 [facility] BNP Bld-mCnc < 10.0 0 - 100 08/20/2018 [facility] Blood culture NO GROWTH AFTER 5 DAYS, FINAL REPORT 08/17/2018 [facility] Blood cobalamin (vitamin B12) measurement (mass/volume) 543 213 - 816 08/17/2018 [facility] Serum or plasma folate measurement (mass/volume) 14.7 7.0 - 15.4 08/17/2018 [facility] Fibrin D-dimer DDU measurement in platelet poor plasma (mass/volume) 1.86 0.00 - 0.45 08/16/2018 [facility] Influenza virus A and B antigen identification by immunofluorescence NEGATIVE NEGATIVE 08/16/2018 [facility] Serum or plasma lipase measurement (enzymatic activity/volume) 20 8 - 78 08/16/2018 [facility] Serum or plasma thyrotropin measurement by detection limit <=0.005 miu/l (units/volume) 3.698 0.350 - 4.940 08/16/2018 [facility] Serum or plasma hepatitis A virus IgM antibody detection by immunoassay Negative 07/08/2018 [facility] Serum or plasma hepatitis B virus surface antigen detection by immunoassay Negative 07/08/2018 [facility] Serum or plasma hepatitis B virus core IgM antibody detection by immunoassay Negative 07/08/2018 [facility] Serum hepatitis C virus antibody detection <0.1 07/08/2018 [facility] Serum nuclear antibody titer by immunofluorescence Negative . 07/08/2018 [facility] Phosphorus measurement 3.7 2.3 - 4.7 07/07/2018 [facility] Serum or plasma iron measurement (mass/volume) 67 50 - 170 07/07/2018 [facility] Mucus detection in urine sediment by light microscopy FEW RARE 06/11/2018 [facility] Bacterial urine culture Urine Culture [facility] Vital Signs Vital Sign Value Date Comments Source Encounters Location Location Details Encounter Type Encounter Number Reason For Visit Attending Provider ADM Date DC Date Status Source Discharged Inpatient (obs) [id number] GABBY CYR MD 06/11/2018 06/13/2018 [facility] Discharged Inpatient [id number] GABBY CYR MD 07/07/2018 07/14/2018 [facility] Discharged Inpatient (obs) [id number] GABBY CYR MD 08/16/2018 08/19/2018 [facility] Discharged Inpatient [id number] GABBY CYR MD 08/20/2018 08/24/2018 [facility] Procedures Procedure Code Date Perfomer Comments Source Computed tomography of brain without radiopaque contrast [id number] 08/20/2018 [facility] Computed tomography of cervical spine without contrast [id number] 08/20/2018 [facility] Computed tomography of chest with contrast [id number] 08/17/2018 [facility] Computed tomography of brain without radiopaque contrast [id number] 08/16/2018 [facility] INSERTION OF FEEDING DEVICE INTO STOMACH, PERC APPROACH [id number] 07/10/2018 [facility] INSPECTION OF UPPER INTESTINAL TRACT, ENDO [id number] 07/10/2018 [facility] Magnetic resonance imaging of brain without contrast [id number] 07/09/2018 [facility] Computed tomography of abdomen and pelvis with contrast [id number] [facility]07[facility] of lumbar spine without contrast [id number] 07/07/2018 [facility] Computed tomography of brain without radiopaque contrast [id number] 07/07/2018 [facility] Computed tomography of brain without radiopaque contrast [id number] 06/13/2018 [facility] CT of abdomen and pelvis without contrast [id number] 06/12/2018 [facility]
[2018-12-08 17:20] LABS: BASOPHILS # (AUTO) 0.1 (0.0-0.1); BASOPHILS % 0.4 % (0.0-1.0); EOSINOPHILS # (AUTO) 0.2 (0.0-0.4); EOSINOPHILS % 1.3 % (0.0-6.0); HEMATOCRIT 38.3 % (34.2-44.1); HEMOGLOBIN 12.8 g/dL (12.0-16.0); LYMPHOCYTES # (AUTO) 2.4 (1.0-3.2); LYMPHOCYTES % 20.1 % (18.0-39.1); MEAN CORPUSCULAR HEMOGLOBIN 33.5 pg (28-32); MEAN CORPUSCULAR HGB CONC 33.4 g/dL (31-35); MEAN CORPUSCULAR VOLUME 100.3 fL (81-99); MONOCYTES # (AUTO) 0.8 (0.2-0.8); MONOCYTES % 6.5 % (4.4-11.3); NEUTROPHILS # (AUTO) 8.4 (2.1-6.9); NEUTROPHILS % 71.3 % (38.7-80.0); PLATELET COUNT 274 x10e3/uL (140-360); RED BLOOD COUNT 3.82 x10e6/uL (3.6-5.1); RED CELL DISTRIBUTION WIDTH 14.1 % (11.7-14.4)
[2018-12-08 17:24] LABS: BILIRUBIN,URINE NEGATIVE (NEGATIVE); CLARITY,URINE CLEAR (CLEAR); COLOR,URINE YELLOW (YELLOW); KETONES,URINE NEGATIVE (NEGATIVE); LEUKOCYTE ESTERASE ,URINE NEGATIVE (NEGATIVE); NITRITE,URINE NEGATIVE (NEGATIVE); PROTEIN,URINE DIPSTICK NEGATIVE (NEGATIVE); URINE UROBILINOGEN 0.2 mg/dL (0.2 - 1)
[2018-12-08 17:36] LABS: ALBUMIN 3.1 g/dL (3.5-5.0); ALBUMIN/GLOBULIN RATIO 0.7 (0.8-2.0); ANION GAP 13.4 mmol/L (8-16); CALCIUM 9.6 mg/dL (8.4-10.2); CREATININE, SERUM 1.36 mg/dL (0.57-1.11); POTASSIUM 5.4 mmol/L (3.5-5.1)
[2018-12-08 17:36] LABS: BACTERIA,URINE RARE /HPF
[2018-12-08 17:43] LABS: CREATINE KINASE MB 4.7 ng/mL (0-5.0)
--- NOTE | 2018-12-08 17:46 | Diagnostic Imaging Report ---
EXAMINATION: CHEST SINGLE (PORTABLE) INDICATION: Chest pain ^N/V/POSS ASPIRATION ^[id number] ^[id number] COMPARISON: 08/16/2018 FINDINGS: TUBES and LINES: None. LUNGS: Lungs are well inflated. Lungs are clear. There is no evidence of pneumonia or pulmonary edema. PLEURA: No pleural effusion or pneumothorax. HEART AND MEDIASTINUM: The cardiomediastinal silhouette is unremarkable. BONES AND SOFT TISSUES: No acute osseous lesion. Soft tissues are unremarkable. UPPER ABDOMEN: No free air under the diaphragm. IMPRESSION: No acute thoracic abnormality. Signed by: Dr. Ellis Dawson M.D. on 12/08/2018 5:42 PM
[2018-12-08] MEDS ORDERED: ONDANSETRON HCL INJ 2MG/ML 2ML 2 MG/ML VIAL IV STA (19:12)
[2018-12-08] MEDS ORDERED: SODIUM CHLORIDE 0.9% 1000ML 1,000 ML IV SCH (19:15)
[2018-12-08] MEDS ORDERED: DIATRIZOATE MEGL/DIATRIZOA SOD 30 ML BTL PO ONE (19:48)
--- NOTE | 2018-12-08 21:29 | Diagnostic Imaging Report ---
CT Abdomen and Pelvis without contrast INDICATION: Vomiting after receiving fluid/food through PEG tube TECHNIQUE: Thin collimation axial images obtained from the diaphragm to the level of the pubic symphysis without nonionic intravenous contrast. Oral contrast was administered. Dose reduction techniques used: Automated exposure control, adjustment of the mAs and/or kVp according to patient size, standardized low-dose protocol, and/or iterative reconstruction technique. RADIATION DOSE: Total DLP: 599.58 mGy*cm Estimated effective dose: (DLP x 0.015 x size factor) mSv CTDIvol has been reviewed. It is below the limits set by the Radiation Protocol Committee (RPC). COMPARISON: CT abdomen/pelvis 07/07/2018. ABDOMEN FINDINGS: Lung Bases: Chronic subsegmental atelectasis of the left lower lobe and medial aspect of the right lower lobe are stable. The ascending aorta is mildly ectatic. The heart is normal in size. No pericardial effusion. There is a tiny hiatal hernia. Liver: Normal in attenuation without mass. Gallbladder: Absent. No ductal dilatation. Pancreas: Normal attenuation without mass. Spleen: Normal size without mass. Adrenal Glands: No evidence for mass. Kidneys: Right: No renal calculus. No cortical mass or hydronephrosis Left: No renal calculus. No cortical mass or hydronephrosis. Ureters: No ureteral dilatation. Lymph Nodes: No enlarged abdominal or periaortic lymph nodes. Aorta: Normal in diameter with diffuse calcifications PELVIS FINDINGS: Bowel: Stomach: Contains enteric contrast. Percutaneous gastrostomy is in appropriate position without surrounding fluid collection. Small Bowel: Contains enteric contrast. No dilatation or mural thickening.. Large Bowel: Mild to moderate burden of stool. There is a prominent stool ball in the rectum. A few diverticula are present in the sigmoid colon without associated inflammation. Appendix: Poorly visualized and may be absent or collapsed. Bladder: Normal. Peritoneum/retroperitoneum: No free fluid or fluid collection. No haziness of the small bowel mesentery. The uterus is absent. There are no adnexal masses. Bones: Diffusely demineralized with mild degenerative changes throughout. No focal osseous lesions. Soft tissues: Unremarkable. IMPRESSION: 1. No evidence for bowel obstruction or inflammation. Appropriate position of percutaneous gastrostomy. Small hiatal hernia. Diverticulosis coli. Moderate stool burden with prominent stool ball in the rectum. No CT evidence of stercoral proctitis. 2. Cholecystectomy and hysterectomy. Signed by: Dr. Alis Ramirez MD on 12/08/2018 9:25 PM
[2018-12-08] MEDS ORDERED: ONDANSETRON HCL INJ 2MG/ML 2ML 2 MG/ML VIAL IV PRN (22:30)
[2018-12-08] MEDS ORDERED: PANTOPRAZOLE 40 MG 10ML VIAL IV STA (22:30)
[2018-12-08 23:45] VITALS: BP 104/58
[2018-12-08] MEDS: SODIUM CHLORIDE 0.9% 1000ML 1,000 ML IV ONE ×2 (23:52→23:53)
[2018-12-09 04:00] VITALS: BP 138/59
[2018-12-09 05:54] LABS: BASOPHILS % 0.4 % (0.0-1.0); EOSINOPHILS # (AUTO) 0.3 (0.0-0.4); EOSINOPHILS % 2.9 % (0.0-6.0); HEMATOCRIT 34.7 % (34.2-44.1); HEMOGLOBIN 11.7 g/dL (12.0-16.0); LYMPHOCYTES # (AUTO) 2.6 (1.0-3.2); LYMPHOCYTES % 24.6 % (18.0-39.1); MEAN CORPUSCULAR HEMOGLOBIN 32.9 pg (28-32); MEAN CORPUSCULAR HGB CONC 33.7 g/dL (31-35); MEAN CORPUSCULAR VOLUME 97.5 fL (81-99); MONOCYTES # (AUTO) 0.9 (0.2-0.8); MONOCYTES % 8.3 % (4.4-11.3); NEUTROPHILS # (AUTO) 6.7 (2.1-6.9); NEUTROPHILS % 63.4 % (38.7-80.0); PLATELET COUNT 241 x10e3/uL (140-360); RED BLOOD COUNT 3.56 x10e6/uL (3.6-5.1)
[2018-12-09 06:18] LABS: ALBUMIN 2.7 g/dL (3.5-5.0); ALBUMIN/GLOBULIN RATIO 0.7 (0.8-2.0); ANION GAP 11.1 mmol/L (8-16); CALCIUM 8.9 mg/dL (8.4-10.2); CREATININE, SERUM 1.08 mg/dL (0.57-1.11); POTASSIUM 5.1 mmol/L (3.5-5.1)
[2018-12-09 07:43] VITALS: BP 139/67
--- NOTE | 2018-12-09 08:40 | NUR ---
Caregiver at bedside, asked nurse if okay for her to give pt home medications. Dr. Sandy notified regarding caregiver providing home medications to pt this morning. Dr. Sandy gave okay for caregiver to administer medications to pt via PEG tube. Home medications not reconciled.
--- NOTE | 2018-12-09 10:51 | NUR ---
BM at this time. Pt presents to be agitated, trying to get out of bed, yelling. Caregiver at bedside.
[2018-12-09] MEDS ORDERED: SOD PHOSPHATE/SOD BIPHOSPHATE ENEMA 132 ML BTL PR ONE (11:00)
[2018-12-09 11:29] VITALS: BP 127/71
[2018-12-09] MEDS: QUETIAPINE FUMARATE 25 MG TAB PO PRN (11:45)
[2018-12-09] MEDS ORDERED: ONDANSETRON HCL INJ 2MG/ML 2ML 2 MG/ML VIAL IV PRN (12:15)
[2018-12-09] MEDS: D5.45%NS/KCL 20MEQ 1,000 ML IV SCH (13:14)
[2018-12-09 15:13] VITALS: BP 86/46
[2018-12-09 15:46] VITALS: BP 115/58
--- NOTE | 2018-12-09 15:53 | NUR ---
SOCIAL WORK INITIAL ASSESSMENT Header Operator to bedside to discuss plan of care with patient/family. CM/SW role and care transitions discussed. Anticipated discharge plan discussed along with duration of care. CM/SW discussed patients right to make decisions in care. CM/SW work hours given. Patient lives: IN HOUSE WITH DAUGHTER AND SON IN LAW Admit/Transfer: VIA ED POA/Emergency contact: UMAIR HANSON Current/Previous [facility]: [facility] PCP/Follow-up Care: GER Current/Previous DME:[facility] Other Services: NONE Employment Status: NA Areas of Concerns: NA Referral Needs: NA Education Needs: NA IMM/BANERJEE given and signed (if applicable): ON ADMISSION Goal for discharge: RETURN HOME WITH SAME SERVICES CM/SW left business card at the bedside with contact information. Name and number was also written on the patients whiteboard. Patient verbalized understanding of discussion. CM will follow-up with ongoing discharge and transition of care needs.
[2018-12-09] MEDS ORDERED: NON-FORMULARY MEDICATION (Ranitidine Hcl 150 MG) PEG SCH (17:00)
[2018-12-09] MEDS ORDERED: VALPROATE 250MG/5ML ORAL LIQ 5ml PEG SCH (17:00)
[2018-12-09] MEDS: FAMOTIDINE 20 MG TAB NG SCH (17:56)
--- NOTE | 2018-12-09 18:26 | History and Physical ---
HISTORY OF PRESENT ILLNESS: She is essentially an 83-year-old female with past medical history positive for hypertension, hypothyroidism, dementia, seizure disorder, came here because she was vomiting at home according to the family. She was found hyponatremic, acute renal insufficiency, very agitated today. REVIEW OF SYSTEMS: The patient is very agitated, very confused. She cannot give me any information. ALLERGIES: SHE IS ALLERGIC TO CODEINE. PAST MEDICAL HISTORY: As I said before, hypertension, hypothyroidism, seizure disorder, dementia. SOCIAL HISTORY: She does not smoke. She does not drink. PHYSICAL EXAMINATION: VITAL SIGNS: Blood pressure is 127/71, temperature 98 degrees, heart rate 74 per minute, respiratory rate 21 per minute, oxygen saturation 97%. HEART: Show regular rhythm. Normal S1, S2 sounds. LUNGS: Clear bilaterally. ABDOMEN: Soft. EXTREMITIES: Show no evidence of cyanosis, edema, or trauma. LABORATORY DATA: BMP; sodium 129, potassium 5.1, chloride 100, CO2 of 23, BUN 24, creatinine 1.08, glucose 57. CBC; white blood count 10.5, hemoglobin 11.7, hematocrit 34.7, platelet count 241,000. AST 25, ALT 12, total bilirubin 0.2, alkaline phosphatase 49. Urinalysis negative. IMAGING DATA: She got a CT of the abdomen and pelvis with contrast, which showed no evidence of any bowel obstruction or inflammation, appropriate position of the percutaneous gastrostomy tube, small hiatal hernia, diverticulosis coli, moderate stool burden with prominent stool volume in the rectum, no CT evidence of proctitis. Cholecystectomy, hysterectomy. FINAL IMPRESSION: 1. Vomiting. 2. Acute renal failure secondary to dehydration. 3. Dementia with agitation. 4. Hyponatremia. 5. Hypertension. 6. Hypothyroidism. 7. Seizure disorder. PLAN OF TREATMENT: We are going to start her on D5 normal saline at 80 mL an hour. We are going to recheck the BMP tomorrow. Consult Dr. King Agarwal. She is also getting Seroquel 25 mg p.o. q.6 hours as needed for agitation. We are going to resume all the home medications including Sinemet 25-100 mg tablet one tablet at 11 o'clock, Aricept 5 mg daily, gabapentin 100 mg at bedtime and 100 mg in the morning, midodrine 2.5 mg daily, Requip 0.5 mg at bedtime. She is also taking Remeron 30 mg at bedtime. She is taking ranitidine 150 mg twice a day, valproic acid 250 mg twice a day, and also Zofran 4 mg IV q.4 hours as needed. MD LEONEL Saldaña/CRAIG /[id number]
[2018-12-09 20:00] VITALS: BP 130/55
--- NOTE | 2018-12-09 20:51 | NUR ---
PATIENT INCONTINENT OF URINE, SHE'S KEPT CLEAN AND DRY. NO RESPIRATORY DISTRESS OBSERVED, REPOSITION FOR COMFORT. CALL LIGHT WITHIN EASY REACH, HEAD OF BED ELEVATED AND PATIENT'S PERSONAL CARE GIVEN AT THE BEDSIDE.
[2018-12-09] MEDS: VALPROATE 250MG/5ML ORAL LIQ 5ml PEG SCH (21:52)
[2018-12-09] MEDS: ROPINIROLE HCL 0.25 MG TAB PEG SCH (21:52)
[2018-12-09] MEDS: GABAPENTIN 100 MG CAP PEG SCH (21:52)
[2018-12-09] MEDS: DONEPEZIL HCL 5 MG TAB PEG SCH (21:52)
[2018-12-10] VITALS: BP 134/58
[2018-12-10] MEDS: QUETIAPINE FUMARATE 25 MG TAB PO PRN ×2 (00:04→21:00)
--- NOTE | 2018-12-10 00:05 | NUR ---
NO SIGN OF PAIN OBSERVED, PATIENT MEDICATED WITH SEROQUEL ORDERED FOR AGITATION. KEPT CLEAN AND DRY, REPOSITION FOR COMFORT. BED ALARM ON, CALL LIGHT WITHIN EASY REACH.
--- NOTE | 2018-12-10 02:07 | NUR ---
DR HUMPHRIES SAW THE PATIENT, HE ASKED THAT I EXAMINE THE PATIENT FOR IMPACTION. UPON ASSESSMENT THE PATIENT WAS NEGATIVE FOR IMPACTION AND THE PHYSICIAN WAS MADE AWARE. DR AYALA PLANS TO SCOPE THE PATIENT AND HE'S WANTING CONSENT FORM SIGN. HE WAS TOLD THAT THE CONSENT WILL BE OBTAIN FROM THE PATIENT'S DAUGHTER BETWEEN 0700-0800AM SINCE IT'S TOO EARLY TO CONTACT THE FAMILY AT THIS TIME.
[2018-12-10 04:00] VITALS: BP 120/56
--- NOTE | 2018-12-10 04:25 | NUR ---
PATIENT IV NOTED INFILTRATED, IV REMOVED WITH TIP INTACT. IV #22 GAUGE INSERTED TO THE LEFT HAND, PATIENT TOLERATED PROCEDURE WELL. IV FLUID INFUSING, KERLIX WRAP AROUND THE IV TO PREVENT THE PATIENT FROM PULLING ON IT. SHE'S KEPT CLEAN AND DRY, NO RESPIRATORY DISTRESS OBSERVED, CALL LIGHT WITHIN EASY REACH.
[2018-12-10 06:01] LABS: ANION GAP 11.6 mmol/L (8-16); CALCIUM 8.6 mg/dL (8.4-10.2); CREATININE, SERUM 1.03 mg/dL (0.57-1.11); POTASSIUM 4.6 mmol/L (3.5-5.1)
[2018-12-10 06:23] LABS: AMYLASE 60 U/L (25-125); LIPASE 17 U/L (8-78)
[2018-12-10 07:32] VITALS: BP 116/56
[2018-12-10] MEDS: D5.45%NS/KCL 20MEQ 1,000 ML IV SCH (07:44)
[2018-12-10] MEDS ORDERED: DEXTROSE 5%/0.9% SOD CHL 1,000 ML IV SCH (09:00)
[2018-12-10] MEDS ORDERED: GABAPENTIN 100 MG CAP PEG SCH (09:00)
[2018-12-10] MEDS ORDERED: ONDANSETRON HCL 4 MG ORAL DISINTEGRATING TAB PEG PRN (10:45)
--- NOTE | 2018-12-10 10:54 | Progress Note ---
DATE: Internal Medicine Progress Note SUBJECTIVE: The patient is sleeping today. PHYSICAL EXAMINATION: VITAL SIGNS: Blood pressure 116/56, temperature 36.6, heart rate 55 per minute, respiratory rate 17 per minute, oxygen saturation 96%. HEART: Showed regular rhythm. No murmur or added sound. LUNGS: Clear bilaterally. ABDOMEN: Soft. LABORATORY DATA: On the blood work we have BMP; sodium 132, potassium 4.6, chloride 101, CO2 24, BUN 24, creatinine 1.03, glucose 88. On CBC; white count 10.5, hemoglobin 11.7, hematocrit 34.7, platelet count 241,000, AST 25, ALT 12, total bilirubin 0.2, alkaline phosphatase 49. IMPRESSION: 1. Episode of vomiting. 2. Hyponatremia. 3. Acute renal failure, which is slowly resolving. 4. Hyponatremia. 5. Seizure disorder. 6. Dementia with agitation. 7. History of Parkinson disease also. 8. Orthostatic hypotension. PLAN OF TREATMENT: Continue IV fluids. Continue Zofran 4 mg IV q.4 hours as needed, Seroquel 25 mg q.6 hours as needed, benazepril 5 mg at bedtime, midodrine 5 mg daily, Requip 0.5 mg at bedtime, gabapentin 100 mg in the morning and 100 mg at night, Pepcid 20 mg twice a day, Sinemet 1 tab daily, valproic acid 250 mg twice a day. Dr. King Agarwal will do an endoscopy because of the recurrent vomiting that she had. CT of the abdomen showed no significant abnormality. MD LEONEL Saldaña/CRAIG /[id number]
[2018-12-10 11:19] VITALS: BP 124/79
--- NOTE | 2018-12-10 11:20 | Progress Note ---
DATE: ADDENDUM: CT of the abdomen showed evidence of hiatal hernia and diverticulosis, but no significant abnormality to explain the symptoms that the patient had. Since the patient has some vomiting and endoscopic evaluation will be done, lipase which came back normal with no evidence of pancreatitis on the CT of the abdomen. MD LEONEL Saldaña/CRAIG /[id number]
[2018-12-10] MEDS: MIDODRINE 2.5 MG TAB PEG SCH (11:30)
[2018-12-10] MEDS: VALPROATE 250MG/5ML ORAL LIQ 5ml PEG SCH ×2 (11:30→21:00)
[2018-12-10] MEDS: FAMOTIDINE 20 MG TAB NG SCH ×2 (11:30→17:57)
[2018-12-10] MEDS: CARBIDOPA/LEVODOPA 25/100 TAB PEG SCH (11:31)
[2018-12-10] MEDS: SODIUM CHLORIDE 1 GM TAB PO SCH (11:31)
--- NOTE | 2018-12-10 13:57 | NUR ---
ST Note: Attempted to see pt for f/u to ensure tolerance of diet. Pt NPO for procedure. Will f/u tomorrow 12/11/18 as indicated.
[2018-12-10] MEDS ORDERED: PANTOPRAZOLE SOD 40 MG TABEC PO NR (15:15)
--- NOTE | 2018-12-10 15:27 | NUR ---
Nutrition Screen Note RD Recommendation for Physician:Initiate PO diet when medically feasible Plan of Care: RD following, monitoring for adequacy and tolerance Nutrition reason for involvement: Nutrition Risk Trigger - MST Primary Diagnose(s): Dehydration, hyperkalemia, dehydration Ht:64 in Wt:154.25lbs BMI:26.5 kg/m2 IBW:120#lbs RD Assessment:12/10/2018 Initial encounter with patient. Pt was not able to provide a nutrition Hx due to Dementia.: Electrolytic De Scaler present at time of visit. Pt has a PEG that is being used for medications only and would vomit past medication administration thus the reason for visit. Pt was eating well and was able to feed herself with finger foods. No difficulty chewing or swallowing. No wt changes. Pt is NPO for an EGD Initial encounter with patient. Current Diet: NPO Malnutrition Evaluation (12/10/2018) The patient does not meet criteria for a specified degree of malnutrition at this time. Will re-evaluate at follow-up as appropriate. Diet Education Needs Assessment: Diet education not indicated. Diet Adequacy: NPO Tolerance: NPO Nutrition Care Level:Casimiro Bean RD, LD, CNSC
[2018-12-10] MEDS: SUCRALFATE 1 GM TAB PO SCH ×2 (17:57→21:00)
--- NOTE | 2018-12-10 18:16 | Operative Report ---
DATE OF PROCEDURE: 12/10/2018 SURGEON: King Agarwal MD PROCEDURE: Esophagogastroduodenoscopy with biopsies. INDICATIONS FOR EGD: Recurrent nausea and vomiting. MEDICATIONS: The patient was done under MAC, please see anesthesiologist's note. PROCEDURE IN DETAIL: With the patient in left lateral decubitus position, flexible fiberoptic Olympus gastroscope was introduced into the esophagus under direct visualization without any difficulty. There was some patchy erythema noted in distal esophagus. The scope was then advanced with ease into the stomach traversing a small hiatal hernia. Multiple long erosions were noted in the antrum and the body of the stomach without active bleeding or stigmata of recent hemorrhage. The biopsies were obtained and sent to stain for H pylori. The bumper of the PEG tube appeared to be in good position. The pylorus was intubated with ease and the scope was advanced all the way to the second portion of the duodenum. The scope was then withdrawn slowly. Mucosa overlying the proximal second portion and the duodenal bulb appeared to be within normal limits. The scope was then withdrawn back into the stomach and retroflexed and mucosa overlying the fundus and cardia appeared to be within normal limits. The scope was then straightened out. The stomach was decompressed. The scope was subsequently withdrawn. The patient tolerated the procedure well. IMPRESSION: 1. Distal esophagitis. 2. Small hiatal hernia. 3. Gastritis, erosive, biopsies obtained and sent to stain for Helicobacter pylori. 4. Bumper of G-tube in good position. PLAN: Follow up histology. Initiate Protonix 40 mg one p.o. a.c. b.i.d. and Carafate 1 g p.o. a.c. t.i.d. and at bedtime. King Agarwal MD [facility] [place]/MODL /[id number] cc: Davis Sandy MD
[2018-12-10 18:33] VITALS: BP 124/79
--- NOTE | 2018-12-10 19:20 | NUR ---
Recieved report from AM nurse. Bedside rounds completed.
[2018-12-10 20:23] VITALS: BP 126/56
[2018-12-10] MEDS: GABAPENTIN 100 MG CAP PEG SCH (21:00)
[2018-12-10] MEDS: DONEPEZIL HCL 5 MG TAB PEG SCH (21:00)
[2018-12-10] MEDS: ROPINIROLE HCL 0.25 MG TAB PEG SCH (21:00)
--- NOTE | 2018-12-11 | NUR ---
Patient AAOx0. Pt appear to be in no pain at this time. Patient q 2hours turn. Peg tube for meds and flushed with 30cc of fluid. Sitter at bedside. Patient q2 turn. patient get anxiety given seroquel to help. Continue monitor.
[2018-12-11 00:23] VITALS: BP 128/58
[2018-12-11 04:40] VITALS: BP 120/58
--- NOTE | 2018-12-11 05:27 | NUR ---
Patient get axious when touched.
[2018-12-11 06:29] LABS: ANION GAP 13.9 mmol/L (8-16); CALCIUM 8.4 mg/dL (8.4-10.2); CREATININE, SERUM 0.9 mg/dL (0.57-1.11); POTASSIUM 4.9 mmol/L (3.5-5.1)
[2018-12-11] MEDS ORDERED: PANTOPRAZOLE SOD 40 MG TABEC PO SCH (07:30)
[2018-12-11] MEDS ORDERED: PANTOPRAZOLE 40 MG 10ML VIAL IV SCH (07:30)
[2018-12-11 08:14] VITALS: BP 122/56
[2018-12-11] MEDS: FAMOTIDINE 20 MG TAB NG SCH (09:27)
[2018-12-11] MEDS: MIDODRINE 2.5 MG TAB PEG SCH (09:27)
[2018-12-11] MEDS: SUCRALFATE 1 GM TAB PO SCH (09:27)
[2018-12-11] MEDS: VALPROATE 250MG/5ML ORAL LIQ 5ml PEG SCH (09:27)
[2018-12-11] MEDS: SODIUM CHLORIDE 1 GM TAB PO SCH (09:28)
[2018-12-11] MEDS: CARBIDOPA/LEVODOPA 25/100 TAB PEG SCH (09:28)
[2018-12-11 09:52] VITALS: BP 122/56
[2018-12-11] MEDS ORDERED: ONDANSETRON HCL 4 MG ORAL DISINTEGRATING TAB PEG PRN (11:00)
[2018-12-11] MEDS ORDERED: SUCRALFATE 1 GM/10 ML SUSP PO SCH (11:30)
[2018-12-11] MEDS ORDERED: PREVACID30 M1 PEG (16:13)
[2018-12-11] MEDS ORDERED: SODIUM CHLORIDE1 GM PEG (16:14)
[2018-12-11 16:21] VITALS: BP 129/59
--- NOTE | 2018-12-11 21:58 | Discharge Summary ---
HOSPITAL COURSE: The patient is an 83 years old female, who has a past medical history positive for Parkinson disease, dementia, orthostatic hypotension, who came to the hospital with vomiting. CT of the abdomen showed no significant abnormality to explain the vomiting. She had an EGD done by Dr. King Agarwal, which showed distal esophagitis, small hiatal hernia and erosive gastritis. Biopsies were obtained and sent for Helicobacter pylori. The G-tube was in good position. The patient is tolerating a diet. No more vomiting. She was here hyponatremia, which is completely resolved. PHYSICAL EXAMINATION: HEART: Showed regular rhythm. Normal S1, S2 sound. LUNGS: Clear bilaterally. ABDOMEN: Soft, nontender. No distention. No visceromegaly. VITAL SIGNS: Blood pressure 122/56, temperature 97 degrees, heart rate 60 per minute, respiratory rate 16 per minute, oxygen saturation 96%. LABORATORY DATA: On the CBC, white blood count 10.5, hemoglobin 11.7, hematocrit 34.7, platelet count 241,000. On the BMP, sodium 141, potassium 4.9, chloride 107, CO2 of 25, BUN 15, creatinine 0.9, glucose 87, calcium 8.4, cardiac enzymes completely negative. amylase 60 and lipase 17. So the patient is going to be going home today. She is going to be discharged on Prevacid granules 30 mg twice a day. Continue Aricept 5 mg daily, Requip 0.5 mg at bedtime, gabapentin 100 mg at bedtime, Depakote 250 mg twice a day, Carafate 1 g before meals, Sinemet 1 tablet daily, sodium tablet 2 g daily, midodrine 5 mg daily, Zofran 4 mg q.4 hours as needed, Pepcid 20 mg twice a day. . We are going to discontinue Pepcid of course. Follow up with me in a couple of weeks. MD LEONEL Saldaña/CRAIG /[id number]
[2018-12-12] MEDS ORDERED: PANTOPRAZOLE SODIUM 40 MG SUSPDR.PKT PEG SCH (07:30)
== END 2018-12-11 16:42 | disposition home or self-care (01) ==
LOC: ER 14:36 → ERHOLD 22:44 → IMCU 23:35
PROVIDERS: ADMIT Internal Medicine; ATTEND Internal Medicine
DX: K25.9 Gastric ulcer, unspecified as acute or chronic, without hemorrhage or perforation (principal); E87.1 Hypo-osmolality and hyponatremia; E86.0 Dehydration; E87.5 Hyperkalemia; Z88.5 Allergy status to narcotic agent; I10 Essential (primary) hypertension; E03.9 Hypothyroidism, unspecified; Z86.73 Personal history of transient ischemic attack (TIA), and cerebral infarction without residual deficits; Z87.440 Personal history of urinary (tract) infections; Z86.718 Personal history of other venous thrombosis and embolism; Z93.1 Gastrostomy status; Z82.49 Family history of ischemic heart disease and other diseases of the circulatory system; E87.8 Other disorders of electrolyte and fluid balance, not elsewhere classified; G40.909 Epilepsy, unspecified, not intractable, without status epilepticus; N17.9 Acute kidney failure, unspecified; K20.9 Esophagitis, unspecified; K44.9 Diaphragmatic hernia without obstruction or gangrene; K29.60 Other gastritis without bleeding; G20 Parkinson's disease; F02.81 Dementia in other diseases classified elsewhere, unspecified severity, with behavioral disturbance; I95.1 Orthostatic hypotension; K57.30 Diverticulosis of large intestine without perforation or abscess without bleeding; Z74.01 Bed confinement status
CPT/HCPCS: 36415 ×4; 43239; 71045; 74176; 80048 ×2; 80053 ×2; 81001; 82150; 82550; 82553; 83690; 84484; 85025 ×2; 88305; 88312; 92610; 93005; 97161; 97530; 99284; C9113; G0378 ×4; J2405 ×2; J7030; J7042; S0164

== ENCOUNTER 2019-02-14 14:01 | Emergency (ER) | payer MEDICARE, OTHER ==
[~2019-02-14] VITALS: Ht 162.6 cm; Wt 67.1 kg
[~2019-02-14 14:01] MED LIST changes: +PREVACID30 M1 PEG; +SODIUM CHLORIDE1 GM PEG
[2019-02-14] MEDS ORDERED: LACTULOSE SYRUP 20 GM/30 ML UDC GT ONE (14:30)
--- NOTE | 2019-02-14 14:42 | NUR ---
PATIENT ATTEMPTED 2 SIPS OF LACTULOSE, VOMITED
[2019-02-14] MEDS ORDERED: CITRATE OF MAGNESIA 300ML BOTTLE GT ONE ×2 (15:00→21:00)
[2019-02-14] MEDS ORDERED: METOCLOPRAMIDE HCL 10 MG/2ML VIAL IV ONE (15:00)
--- NOTE | 2019-02-14 15:29 | NUR ---
REPORT TO TAVON Raymundo
--- NOTE | 2019-02-14 15:30 | NUR ---
REPORT RECEVIED FROM VIELKA MILLER. ASSUMED CARE AT THIS TIME. EMESIS X2 YELLOW BILE. NEW GOWN PROVIDED FOR PT, NEW EMESIS BAG PROVIDED. NAD NOTED. BED LOW/LOCKED, SIDE RAILS UP X 2, HOME HEALTH PROVIDERS AT BEDSIDE, CALL LIGHT IN REACH, WILL CONTINUE TO MONITOR. UPDATED ON CURRENT PLAN OF CARE.
--- NOTE | 2019-02-14 15:42 | NUR ---
RADIOLOGY CALLED TO REQUEST STAT X-RAY OF ABDOMEN, BEFORE MEDICATING PT WITH MAGNESIUM CITRATE; DR. JOHNSON MADE AWARE OF THIS. CARE PROVIDERS UPDATED ON PLAN OF CARE.
--- NOTE | 2019-02-14 17:08 | NUR ---
MAGNESIUM CITRATE GIVEN VIA PEG TUBE PER ORDERS, PT NOTED TO HAVE EMESIS SHORTLY AFTER ADMINISTRATION. INFORMED DR. JOHNSON.
--- NOTE | 2019-02-14 17:32 | Diagnostic Imaging Report ---
Exam: KUB with PA chest/acute abdominal series Clinical History: Impacted, rule out constipation Comparison: CT abdomen and pelvis 12/08/2018 DISCUSSION: Frontal view of the abdomen shows a nonobstructive bowel gas pattern with moderate amount of retained stool in the rectum. .There are no dilated, air-filled loops of bowel. There are no abnormal calcifications.No acute bone abnormality. Degenerative changes in bilateral hip joints and lumbosacral spine. Cholecystectomy clips. Unchanged PEG tube. Lungs are grossly clear. No consolidation or effusion. Cardiomediastinal silhouette is normal. Pulmonary vasculature is normal. No acute bony abnormalities. IMPRESSION: 1. Nonobstructive bowel gas pattern, with moderate retained stool in the rectum.. The staff physician below has personally reviewed this exam on the date of dictation. Signed by: Dr. Karlos Hurd M.D. on 02/14/2019 5:28 PM
[2019-02-14] MEDS ORDERED: MINERAL OIL 132 ML BTL PR ONE ×2 (18:15→21:00)
[2019-02-14 19:35] LABS: BASOPHILS % 0.4 % (0.0-1.0); EOSINOPHILS # (AUTO) 0.1 (0.0-0.4); EOSINOPHILS % 0.8 % (0.0-6.0); HEMATOCRIT 34.4 % (34.2-44.1); LYMPHOCYTES # (AUTO) 2.1 (1.0-3.2); LYMPHOCYTES % 19.6 % (18.0-39.1); MEAN CORPUSCULAR HGB CONC 34.9 g/dL (31-35); MEAN CORPUSCULAR VOLUME 97.5 fL (81-99); MONOCYTES # (AUTO) 0.7 (0.2-0.8); MONOCYTES % 6.8 % (4.4-11.3); NEUTROPHILS # (AUTO) 7.9 (2.1-6.9); NEUTROPHILS % 72.1 % (38.7-80.0); PLATELET COUNT 295 x10e3/uL (140-360); RED BLOOD COUNT 3.53 x10e6/uL (3.6-5.1); RED CELL DISTRIBUTION WIDTH 14.1 % (11.7-14.4)
--- NOTE | 2019-02-14 19:40 | NUR ---
LARGE BOWEL MOVEMENT NOTED. PT CLEANED AND PROVIDED WITH NEW BRIEF AND INCONTIENCE PAD. INFORMED DR. JOHNSON OF BOWEL MOVEMENT.
[2019-02-14 19:53] LABS: ALBUMIN 3.2 g/dL (3.5-5.0); ALBUMIN/GLOBULIN RATIO 0.8 (0.8-2.0); CALCIUM 9.1 mg/dL (8.4-10.2); CREATININE, SERUM 1.11 mg/dL (0.57-1.11)
[2019-02-14 19:57] LABS: BILIRUBIN,URINE NEGATIVE (NEGATIVE); CLARITY,URINE SL CLOUDY (CLEAR); COLOR,URINE YELLOW (YELLOW); KETONES,URINE NEGATIVE (NEGATIVE); LEUKOCYTE ESTERASE ,URINE NEGATIVE (NEGATIVE); NITRITE,URINE NEGATIVE (NEGATIVE); PROTEIN,URINE DIPSTICK NEGATIVE (NEGATIVE); URINE UROBILINOGEN 0.2 mg/dL (0.2 - 1)
[2019-02-14 20:03] LABS: BACTERIA,URINE FEW /HPF; EPITHELIAL CELLS,URINE FEW /LPF; RBC,URINE 0-5 /HPF (0-5); WBC,URINE (MAN) 0-5 /HPF (0-5)
[2019-02-14 21:27] VITALS: BP 112/67
== END 2019-02-14 21:15 | disposition home or self-care (01) ==
LOC: ER 14:01
DX: R10.84 Generalized abdominal pain (principal); R11.0 Nausea; K59.00 Constipation, unspecified; F03.90 Unspecified dementia, unspecified severity, without behavioral disturbance, psychotic disturbance, mood disturbance, and anxiety; Z86.73 Personal history of transient ischemic attack (TIA), and cerebral infarction without residual deficits; Z86.718 Personal history of other venous thrombosis and embolism
CPT/HCPCS: 36415; 74022; 80053; 81001; 85025; 87086; 99284; J2765